=== PATIENT | male | born 1995 | race Caucasian/White ===

== ENCOUNTER 2023-06-10 16:19 | Outpatient (CLI) | payer MEDICAID, SELFPAY ==
[2023-06-10 10:58] LABS: Abs Immature Grans 0.02 10^3/uL (0.0-0.06); Absolute Basophil Count 0.04 10^3/uL (0.0-0.2); Absolute Lymphocyte Count 1.77 10^3/uL (1.2-3.4); Absolute Monocyte Count 0.49 10^3/uL (0.1-0.8); Absolute Neutrophil Count 3.37 10^3/uL (1.2-6.7); Basophils % 0.6; Eosinophils % 8.1; HCT 44.5 % (40.0-50.0); HGB 15.6 g/dL (13.5-17.5); Immature Grans % 0.3; Lymphocytes % 28.6; MCH 31.4 pg (27.0-33.0); MCHC 35.1 % (32.0-36.0); MCV 90 fL (80-95); MPV 9.3 fL (8.0-11.0); Monocytes % 7.9; Neutrophils % 54.5; Platelet Count 211 10^3/uL (130-400); RBC 4.97 10^6/uL (4.36-5.78); RDW 11.7 % (11.8-14.1); RDW-SD 37.9 fL; WBC 6.19 10^3/uL (4.4-10.8)
[2023-06-10 11:12] LABS: Hemoglobin A1C 5.1 % (<5.7)
[2023-06-10 11:51] LABS: ALT 21 U/L (16-63); AST 16 U/L (15-37); Albumin 4.1 g/dL (3.4-5.0); Alkaline Phosphatase 113 U/L (46-116); Anion Gap 6.4 mmol/L (3-11); BUN 11 mg/dL (7-18); Bilirubin, Total 0.4 mg/dL (0.2-1.0); CO2 30.6 mmol/L (21.0-32.0); CREATININE 0.9 mg/dL (0.70-1.30); Calculated LDL 114 mg/dL (<100); Chloride 101 mmol/L (98-107); Cholesterol 179 mg/dL (<200); Estimated GFR 118.57 (mL/min/1.73m2); Glucose 100 mg/dL (74-106); HDL Cholesterol 54 mg/dL (40-60); Sodium 138 mmol/L (136-145); TSH 1.17 uIU/mL (0.36-3.74); Total Protein 8.2 g/dL (6.4-8.2); Triglyceride 55 mg/dL (<150)
[2023-06-10 11:53] LABS: *AMPHETAMINES SCREEN URINE Negative (Negative); *BARBITURATES SCREEN URINE Negative (Negative); *BENZODIAZEPINES SCREEN URINE Negative (Negative); Cannabinoids THC Negative (Negative); Cocaine Screen,Urine Negative (Negative); METHADONE URINE SCREEN Negative (Negative); OPIATES URINE SCREEN Negative (Negative)
[2023-06-10 11:56] LABS: Tricyclic Antidepressants Negative (Negative)
[2023-06-11 10:53] LABS: HIV-1/2 Ag & Ab Screen Negative (Negative)
[2023-06-11 13:20] LABS: Chlamydia Result Negative (Negative); GC Result Negative (Negative)
[2023-06-11 13:41] LABS: HCV RNA Qualitative Undetected (Undetected)
[2023-06-11 17:36] LABS: HBs Antibody, Quant 38.9 mIU/mL (See Note); Hepatitis B Surface Ab Positive (See Note)
[2023-06-11 17:46] LABS: Hepatitis B Surface Ag Negative (Negative)
[2023-06-11 18:25] LABS: Hep B Core Antibody Negative (Negative)
[2023-06-11 18:45] LABS: Hep A Total Ab w Rflx IgM Negative (Negative)
[2023-06-12 12:24] LABS: TB Interpretation Negative (Negative); TB1 Ag minus Nil 0.01 IU/ml
[2023-06-12 19:03] LABS: Syphilis IgG w/Reflex Nonreactive (Nonreactive)
[2023-06-13 14:45] LABS: Fentanyl Interpretation Negative.; Fentanyl by LC-MS/MS Not Detected; Norfentanyl by LC-MS/MS Not Detected
[2023-06-14 14:55] LABS: Buprenorphine 97.6 ng/mL (Cutoff: 5.0); Norbuprenorphine 1947.8 ng/mL (Cutoff: 2.5)
== END 2023-06-10 16:20 | disposition home or self-care (01) ==
LOC: LBO 16:20
PROVIDERS: Visit Provider Advanced Practice Midwife
DX: F11.20 Opioid dependence, uncomplicated (principal); Z72.89 Other problems related to lifestyle; Z11.4 Encounter for screening for human immunodeficiency virus [HIV]; Z11.59 Encounter for screening for other viral diseases
CPT/HCPCS: 36415; 80053; 80061; 80307; 80348; 86704; 86706; 86709; 87340; 87389; 87491; 87522; 87591; 80354; 83036; 84443; 85025; 86480; 86780

== ENCOUNTER 2023-06-23 16:11 | Emergency (ER) | payer MEDICAID, SELFPAY ==
[2023-06-23 16:15] VITALS: BP 137/76; PULSE 81; RESP 16; TEMP 37.4; O2SAT 96
--- NOTE | 2023-06-23 17:21 | W.ED.GENAD ---
Discharge Plan Disposition Patient Disposition: Home Condition: Stable Discharge Details Clinical Impression: Constipation Primary Care Provider: Unknown,Unknown ED Provider: Stephani Aguilar Home Meds and New Rx's Prescriptions: No Action metronidazole 500 mg tablet 500 mg PO BID Qty: 14 0RF Discharge Instructions Instructions: Constipation (ED) Additional Instructions: Drink at least 6 to 8 glasses of water daily to stay well-hydrated this will help with constipation Use [id number] stool softeners and laxatives as directed would recommend Colace 100 mg twice daily and MiraLAX 17 g daily to keep bowels regular. Can add milk of mag or Dulcolax if needed Referrals: Unknown,Unknown [Primary Care Provider] - (Follow-up with primary care provider return sooner for new or worsening symptoms) Medical Decision Making 27-year-old gentleman on chronic Suboxone presents with abdominal pain last bowel movement over a week ago. He has been eating and drinking denies nausea fever. His labs including CBC CMP and lactate are within normal limits. His abdominal exam is benign. Vital signs are stable. Most likely constipation will administer Relistor 12 mg subcu and discharged to home with bowel regimen recommendations return sooner for new or worsening symptoms Medical Records Medical records reviewed: Yes I reviewed the patient's medical records. Lab Data Lab results reviewed: Yes I reviewed the patient's lab results. Lab results narrative: Laboratory Results - last 24 hr 06/23/23 17:40 WBC 9.62 RBC 5.01 Hgb 15.6 Hct 45.2 MCV 90 MCH 31.1 MCHC 34.5 RDW 12.1 Plt Count 212 MPV 9.8 Immature Gran % 0.3 Neutrophils % 63.8 Lymphocytes % 21.3 Monocytes % 10.4 Eosinophils % 4.0 Basophils % 0.2 Nucleated RBC % 0.0 Absolute Neutrophils 6.14 Absolute Lymphocytes 2.05 Absolute Monocytes 1.00 H Absolute Eosinophils 0.38 Absolute Basophils 0.02 VBG Lactate 0.7 Sodium 140 Potassium 4.0 Chloride 101 Carbon Dioxide 29.8 Anion Gap 9.2 BUN 11 Creatinine 0.9 Est GFR (CKD-EPI 2020) 118.57 Glucose 111 H Calcium 9.6 Magnesium 2.1 Total Bilirubin 0.5 AST 13 L ALT 20 Alkaline Phosphatase 111 Total Protein 8.3 H Albumin 4.2 Lipase 25 HPI General Mode of arrival: ambulatory. Date/Time Provider Initiated Documentation: 06/23/23 16:22. Limitations to Documentation: no limitations. Information obtained by: patient. HPI Narrative: Reports intermittent abdominal pain that he says is generalized and sometimes upper abdomen sometimes lower now is pointing to the right. He has been eating and drinking he states he has not had a bowel movement in over a week which is normal for him he has had no fevers. States that constipation is typical for him with Related Data Home Medications Medication Instructions Recorded Confirmed metronidazole 500 mg tablet 500 mg PO BID #14 tabs 09/25/21 06/23/23 Previous Rx's Medication Instructions Recorded metronidazole 500 mg tablet 500 mg PO BID #14 tabs 09/25/21 Allergies Allergy/AdvReac Type Severity Reaction Status Date / Time No Known Allergies Allergy Unverified 06/23/23 16:17 General Stated Complaint: Abd Prob SIMA: 3 Review of Systems All systems reviewed & are unremarkable except as noted in HPI and below PFSH All Active Problems (Updated 06/23/23 @ 18:55 by Stephani Aguilar NP) Constipation (Acute) Family History (Updated 05/14/23 @ 11:14 by Queta Enrique) Mother Alcohol use disorder Social History (Updated 05/14/23 @ 11:13 by Queta Enrique) Smoking/Tobacco Use Status: Current every day Tobacco Type: e-cigarettes Second Hand Exposure: No Smoking risk assessment performed?: Yes Alcohol Intake: current Alcohol Intake frequency: holidays/special occasions only Drug use: Current Sobriety Caregiver/Support person: No Foster care: Yes Housing: house Number of Children: 0 number of grandchildren: 0 Communication Needs: None Do you need help understanding health information?: Never Sexually active: Yes Do you think of yourself as: straight/heterosexual Current gender identity: male What is your relationship status?: never How often do you talk on the phone with friends or family?: never Do you belong to any clubs or organized social groups?: no Panel score (0-1 are the most socially isolated patients): 0 Duration: > 90 minutes/day Frequency: daily Seatbelt use: never Helmet use: No Drive intox or ride w/intox dedicated local truck driver: No Do you feel safe at home: Yes Do you feel safe in your relationship?: Yes Exam Narrative Exam Narrative: Well-appearing gentleman of stated age in no acute distress head is atraumatic oral mucosas moist cardiovascular regular rate and rhythm respirations even and unlabored his abdomen is slightly distended soft reporting tenderness on the right there is no guarding no masses, benign abdominal exam, his extremities without edema moves all extremities. Normal mood and affect neuro awake alert oriented Course Vital Signs Vital signs: Vital Signs Temperature 37.4 C 06/23/23 16:15 Pulse 81 06/23/23 16:15 Respiratory Rate 16 06/23/23 16:15 Blood Pressure 137/76 06/23/23 16:15 Pulse Oximetry 96 06/23/23 16:15 Temperature 37.4 C 06/23/23 16:15 Temperature Source Temporal Artery Scan 06/23/23 16:15 Pulse 81 06/23/23 16:15 Respiratory Rate 16 06/23/23 16:15 Blood Pressure 137/76 06/23/23 16:15 Blood Pressure Position Sitting 06/23/23 16:15 Pulse Oximetry 96 06/23/23 16:15 Oxygen Delivery Method Room Air 06/23/23 16:15 Oxygen Flow Rate 0 06/23/23 16:15 PAWSS Have you Been Recently Intoxicated or Drunk Within the Last 30 days?: No Have you Ever Experienced Previous Episodes of Alcohol Withdrawal?: No Have you ever Experienced Withdrawal Seizures?: No Have you ever Experienced Delirium Tremens(DT)s?: No Have you ever undergone Alcohol Rehabilitation Treatment (i.e, inpt ot outpatient treatment programs)?: No Have you ever Experienced Blackouts?: No Have you ever Combined Alcohol with other Downers within the last 90 days?: No Have you ever Combined Alcohol with any other Substance of Abuse during the last 90 days?: No Positive Blood Alcohol level on Presentation? [PCS.BAL]: No Evidence of Increased Autonomic Activity (i.e. HR>120, tremor, sweating, agitation, nausea)?: No Result: 0
[2023-06-23] MEDS: Lactated Ringers 1,000 ML 1000 ML IV (17:39)
[2023-06-23 17:45] LABS: Lactate 0.7 mmol/L (0.6-1.4)
[2023-06-23 17:46] LABS: Abs Immature Grans 0.03 10^3/uL (0.0-0.06); Absolute Basophil Count 0.02 10^3/uL (0.0-0.2); Absolute Eosinophil Count 0.38 10^3/uL (0.0-0.7); Absolute Lymphocyte Count 2.05 10^3/uL (1.2-3.4); Absolute Neutrophil Count 6.14 10^3/uL (1.2-6.7); Basophils % 0.2; HCT 45.2 % (40.0-50.0); HGB 15.6 g/dL (13.5-17.5); Immature Grans % 0.3; Lymphocytes % 21.3; MCH 31.1 pg (27.0-33.0); MCHC 34.5 % (32.0-36.0); MCV 90 fL (80-95); MPV 9.8 fL (8.0-11.0); Monocytes % 10.4; Neutrophils % 63.8; Platelet Count 212 10^3/uL (130-400); RBC 5.01 10^6/uL (4.36-5.78); RDW 12.1 % (11.8-14.1); RDW-SD 40.2 fL; WBC 9.62 10^3/uL (4.4-10.8)
[2023-06-23 18:01] LABS: Lipase 25 U/L (16-77)
[2023-06-23 18:04] LABS: ALT 20 U/L (16-63); AST 13 U/L (15-37); Albumin 4.2 g/dL (3.4-5.0); Alkaline Phosphatase 111 U/L (46-116); Anion Gap 9.2 mmol/L (3-11); BUN 11 mg/dL (7-18); Bilirubin, Total 0.5 mg/dL (0.2-1.0); CO2 29.8 mmol/L (21.0-32.0); CREATININE 0.9 mg/dL (0.70-1.30); Calcium 9.6 mg/dL (8.5-10.1); Chloride 101 mmol/L (98-107); Estimated GFR 118.57 (mL/min/1.73m2); Glucose 111 mg/dL (74-106); Magnesium 2.1 mg/dL (1.8-2.4); Sodium 140 mmol/L (136-145); Total Protein 8.3 g/dL (6.4-8.2)
[2023-06-23] MEDS: Methylnaltrexone 12 MG/0.6 ML VIAL SC (19:20)
[2023-06-23 19:21] VITALS: BP 119/65; PULSE 76; RESP 14; O2SAT 98
== END 2023-06-23 19:21 | disposition home or self-care (01) ==
PROVIDERS: Emergency Provider Nurse Practitioner Acute Care
DX: R10.84 Generalized abdominal pain (principal); R50.9 Fever, unspecified; R11.0 Nausea; K59.00 Constipation, unspecified; Z72.0 Tobacco use; F11.20 Opioid dependence, uncomplicated
CPT/HCPCS: 80053; 83690; 96360; 96372; 99284; 83605; 83735; 85025

== ENCOUNTER 2023-09-27 09:35 | Emergency (ER) | payer MEDICAID, SELFPAY ==
[2023-09-27 09:39] VITALS: BP 134/78; PULSE 97; RESP 16; TEMP 37.7; O2SAT 97
--- NOTE | 2023-09-27 09:45 | DI.RAD_ITS ---
Exam(s) XR CHEST 2V PA LATERAL EXAM: XR CHEST 2V PA LATERAL CLINICAL HISTORY: cough x10 days, wheeze RLL TECHNIQUE: 2D digital imaging was performed. Two views. COMPARISON: No exams were available for comparison FINDINGS: HEART: Normal size. Aorta: Not dilated. PULMONARY VASCULATURE: Normal. LUNGS: Patchy right upper lobe infiltrate. Remainder of the lungs appear clear. PLEURAL SPACE: No pleural effusion or pneumothorax. BONE:Unremarkable for age. Soft tissues: Unremarkable. IMPRESSION: Right upper lobe pneumonia. DATA REPOSITORY: RADIATION DOSE DELIVERED:
--- NOTE | 2023-09-27 09:47 | W.ED.GENAD ---
Discharge Plan Disposition Patient Disposition: Home Condition: Stable Discharge Details Clinical Impression: Pneumonia Primary Care Provider: Unknown,Unknown ED Provider: Yeison Argueta Home Meds and New Rx's Prescriptions: New amoxicillin-pot clavulanate 875-125 mg tablet 1 tab PO BID 5 Days Qty: 10 0RF azithromycin 250 mg tablet See Rx Instructions .ROUTE .COMPLEX Qty: 6 0RF Rx Instructions: For 250 mg dose pack: take 500 mg today (day 1), then 250 mg for 4 days (days 2-5) No Action buprenorphine-naloxone [Suboxone] 8-2 mg film 2 film sublingual QDAY Rx Instructions: place 1 strip/tab under (each) side of tongue Discharge Instructions Instructions: Amoxicillin/Clavulanate Potassium (By mouth), Azithromycin (By mouth), Pneumonia (ED) Additional Instructions: You were seen in the emergency department for your cough with sore throat. Your rapid strep swab is negative. Your x-ray shows you have a little pneumonia in your right lung. I have sent 2 antibiotics to [facility] in [place] take both of these as directed. Please use therapeutic dosing of Tylenol (acetamenophen) & Advil (ibuprofen) in an alternating fashion as follows: Take 1000mg of Tylenol every 6 hours without missing doses- that is 4 times per day. [place] in between the Tylenol dosings, take 400-600mg of Advil also on a 6 hour schedule, that is also 4 times per day. The daily maximum dosing of Tylenol is 4000mg, and the daily maximum dosing of Advil is 2400mg. This is safe to do for weeks. Please note that some common cold medications & prescription pain medications may contain acetamenophen and you need to read OTC drug labels and factor that in to maximum daily dosings. Take [id number] cold medicines as well like Mucinex. Please return to the emergency department for any severe increase in shortness of breath or respiratory distress, intractable nausea or vomiting. HPI General Date/Time Provider Initiated Documentation: 09/27/23 09:43. HPI Narrative: 27 year-old male presents to ED today by POV/ambulating with a chief complaint of sore throat, cough, headache with onset 10 days ago. Quality described as lung irritation, just feels fatigued, headache with dysphagia and sore throat, no radiation to severe chest pain, respiratory distress, nausea/vomiting, abdominal pain. Severity is described as moderate to severe. Palliating factors include Tylenol and Advil without much relief. Provoking factors include nothing specific. Patient not anticoagulated. Related Data Home Medications Medication Instructions Recorded Confirmed amoxicillin 875 mg-potassium 1 tab PO BID pneumonia 5 days #10 09/27/23 clavulanate 125 mg tablet tabs azithromycin 250 mg tablet See Rx Instructions PO .COMPLEX 09/27/23 pneumonia #6 tabs buprenorphine 8 mg-naloxone 2 mg 2 film sublingual QDAY 09/27/23 09/27/23 sublingual film (Suboxone) Previous Rx's Medication Instructions Recorded amoxicillin 875 mg-potassium 1 tab PO BID pneumonia 5 days #10 09/27/23 clavulanate 125 mg tablet tabs azithromycin 250 mg tablet See Rx Instructions PO .COMPLEX 09/27/23 pneumonia #6 tabs Allergies Allergy/AdvReac Type Severity Reaction Status Date / Time No Known Allergies Allergy Unverified 09/27/23 09:42 General Stated Complaint: Sorethroat SIMA: 4 Review of Systems All systems reviewed & are unremarkable except as noted in HPI and below Exam Narrative Exam Narrative: GENERAL APPEARANCE: Well-nourished, non-toxic, awake and alert, atraumatic, no acute distress. SKIN: Warm, pink, dry, intact, without rashes/lesions/ulcerations. HEAD: Normocephalic, atraumatic, normal hair distribution for gender/age. EYES: Pupils PERRLA, EOMs intact without nystagmus, normal conjunctiva, no exudates on lids/lashes. ENT: Nares patent, no circumoral cyanosis, no facial swelling, erythematous posterior oropharynx, no exudate NECK: Supple, trachea midline, painless cervical ROM. LUNGS/CHEST: Lungs CTA bilaterally- rhonchi in R lung diffusely, left benign, non-labored respirations, normal A/P diameter, symmetrical expansion, no chest wall deformity HEART (CV/PV): Regular rate and rhythm without murmur, no peripheral edema, no JVD. ABDOMEN: Soft, non-distended, no guarding, no tenderness. MSK: Normal ROM, no swelling/deformity to bilateral UEs or LEs, moving all extremities without weakness, no cyanosis, spine midline without tenderness, normal curvature. NEURO: Mental Status AAOx4 - alert to person, place, time, events No facial droop, no forehead involvement. Motor: No focal weakness - strength 5/5 in bilateral UEs and LEs, proximal and distal, symmetric. Sensory: sensation intact to light touch globally. Gait normal: patient ambulated without ataxia into ED room. PSYCH: euthymic, cooperative, pleasant, appropriate speech Course Vital Signs Vital signs: Vital Signs Temperature 37.7 C H 09/27/23 09:39 Pulse 97 H 09/27/23 09:39 Respiratory Rate 16 09/27/23 09:39 Blood Pressure 134/78 09/27/23 09:39 Pulse Oximetry 97 09/27/23 09:39 Temperature 37.7 C H 09/27/23 09:39 Temperature Source Skin 09/27/23 09:39 Pulse 97 H 09/27/23 09:39 Respiratory Rate 16 09/27/23 09:39 Blood Pressure 134/78 09/27/23 09:39 Blood Pressure Position Sitting 09/27/23 09:39 Pulse Oximetry 97 09/27/23 09:39 Oxygen Delivery Method Room Air 09/27/23 09:39 Oxygen Flow Rate 0 09/27/23 09:39 Pain Level 8 09/27/23 09:39 Medical Decision Making This dictation utilizes [id number] dictation software and may contain unedited grammatical errors. 27 y/o M presents to ED today with a chief complaint of cough, sore throat, headache for the past 10 days. Patient denies respiratory distress, does endorse low-grade fever, denies abdominal pain/nausea/vomiting. Patient has remote history of asthma. Patients' medical history: resolved asthma in the past. Family and social history: noncontributory. Pertinent exam findings / vital signs include rhonchi R lung, no hypoxia, benign abdomen, low-grade fever. Differential / pathologies of concern include Pneumonia, URI, Viral Syndrome, Strep Pharyngitis. Diagnostic studies of: -CXR, Covid/Flu/RSV PCR, Rapid Strep. -Rapid strep neg -Covid/Flu/RSV neg -CXR shows R multifocal PNA Interventions of: -Dual ABX Regimen for CAP, DuoNeb. ED Course/Assessment/Plan: 27-year-old male presents with 10-day onset of respiratory infection, significant cough and headache. His x-ray shows a right multifocal pneumonia and I did treat with Augmentin and azithromycin, patient did receive a DuoNeb here in the emergency department, counseled on therapeutic Tylenol and ibuprofen and strict return criteria for increasing respiratory distress. Findings not consistent with hypoxic respiratory failure, sepsis, covid/flu/rsv, strep. Disposition of Pneumonia. Patient verbalized understanding of the plan and return to ED criteria and engaged in shared decision making. Medical Records Medical records reviewed: Yes I reviewed the patient's medical records. Imaging Data Radiologic Study: Attestation: I personally reviewed and interpreted this imaging study as follows: Imaging: X-Ray Radiologist's impression: Exam: XR Chest Exam date and time: 09/27/2023 10:17 AM Age: 27 years old Clinical indication: Other: Cough x10 days, wheeze rll TECHNIQUE: Imaging protocol: Radiologic exam of the chest. Views: 2 views. COMPARISON: No relevant prior studies available. FINDINGS: Lungs: Opacities In the right upper lobe may represent multifocal pneumonia.. Pleural spaces: Unremarkable. No pleural effusion. No pneumothorax. Heart/Mediastinum: Unremarkable. No cardiomegaly. Bones/joints: Unremarkable. IMPRESSION: Opacities In the right upper lobe may represent multifocal pneumonia.. Dictated and Authenticated by: Yoel Grider MD. Ordering:SHELLEY Latham MD Lab Data Lab results reviewed: Yes I reviewed the patient's lab results. Lab results narrative: Rapid Strep negative -POC Labs: 09/27/23 10:00 Tonsil - Not Specified Group A Streptococcus Culture - Pending Laboratory Tests Range/Units 09/27/23 10:00 COVID-19 Source Nasopharynx SARS-CoV-2 (PCR) (Negative) Negative Influenza Type A (PCR) (Negative) Negative Influenza Type B (PCR) (Negative) Negative RSV (PCR) (Negative) Negative Quality:SDOH Health Related Social Needs: No Data to Display PFSH All Active Problems (Updated 09/27/23 @ 10:30 by TAYLOR Romero) Pneumonia (Acute) Family History (Updated 05/14/23 @ 11:14 by Queta Enrique) Mother Alcohol use disorder Social History (Updated 05/14/23 @ 11:13 by Queta Enrique) Smoking/Tobacco Use Status: Current every day Tobacco Type: e-cigarettes Second Hand Exposure: No Smoking risk assessment performed?: Yes Alcohol Intake: current Alcohol Intake frequency: holidays/special occasions only Drug use: Current Sobriety Substance use type: does not use Caregiver/Support person: No Foster care: Yes Housing: house Number of Children: 0 number of grandchildren: 0 Communication Needs: None Do you need help understanding health information?: Never Sexually active: Yes Do you think of yourself as: straight/heterosexual Current gender identity: male What is your relationship status?: never How often do you talk on the phone with friends or family?: never Do you belong to any clubs or organized social groups?: no Panel score (0-1 are the most socially isolated patients): 0 Duration: > 90 minutes/day Frequency: daily Seatbelt use: never Helmet use: No Drive intox or ride w/intox star route mail driver: No Do you feel safe at home: Yes Do you feel safe in your relationship?: Yes
[2023-09-27 10:06] VITALS: RESP 3; RESP 5; O2SAT 95
[2023-09-27] MEDS: Albuterol/Ipratropium 3 ML UPD VIAL UPD (10:06)
--- NOTE | 2023-09-27 10:28 | DI.VRAD_ITS ---
PROCEDURE INFORMATION: Exam: XR Chest Exam date and time: 09/27/2023 10:17 AM Age: 27 years old Clinical indication: Other: Cough x10 days, wheeze rll TECHNIQUE: Imaging protocol: Radiologic exam of the chest. Views: 2 views. COMPARISON: No relevant prior studies available. FINDINGS: Lungs: Opacities In the right upper lobe may represent multifocal pneumonia.. Pleural spaces: Unremarkable. No pleural effusion. No pneumothorax. Heart/Mediastinum: Unremarkable. No cardiomegaly. Bones/joints: Unremarkable. IMPRESSION: Opacities In the right upper lobe may represent multifocal pneumonia.. Dictated and Authenticated by: Yoel Grider MD. Ordering:SHELLEY Latham MD
[2023-09-27 10:44] LABS: COVID-19 PCR Negative (Negative); Influenza A PCR Negative (Negative); Influenza B PCR Negative (Negative); RSV PCR Negative (Negative)
[2023-09-27 10:46] VITALS: BP 126/84; PULSE 125; RESP 16; O2SAT 96
[2023-09-27 10:47] LABS: Source Nasopharynx
== END 2023-09-27 10:49 | disposition home or self-care (01) ==
PROVIDERS: Emergency Provider Physician Assistant
DX: R05.1 Acute cough (principal); R07.0 Pain in throat; R51.9 Headache, unspecified
CPT/HCPCS: 87637; 87880; 94640; 99283; 71046; 87081; J7620

== ENCOUNTER 2023-10-29 15:08 | Emergency (ER) | payer MEDICAID, SELFPAY ==
[2023-10-29 15:09] VITALS: BP 136/82; PULSE 90; RESP 20; TEMP 38.1; O2SAT 98
[2023-10-29] MEDS: Acetaminophen 325 MG TAB 650 MG PO (15:39)
[2023-10-29] MEDS: Clindamycin 150 MG CAP 450 MG PO (15:39)
[2023-10-29] MEDS: Ketorolac 15 MG/ML VIAL IM (15:40)
--- NOTE | 2023-10-29 15:40 | ED.GENADUL_ITS ---
Discharge Plan Disposition Patient Disposition: Home Condition: Stable Discharge Details Clinical Impression: Cellulitis of groin, left Primary Care Provider: Unknown,Unknown ED Provider: Aman Simon Home Meds and New Rx's Prescriptions: New clindamycin HCl 300 mg capsule 300 mg PO QID 7 Days Qty: 28 0RF No Action buprenorphine-naloxone [Suboxone] 8-2 mg film 2 film sublingual QDAY Rx Instructions: place 1 strip/tab under (each) side of tongue Discharge Instructions Instructions: Cellulitis (ED) Additional Instructions: Please return to the emergency department for any worsening symptoms. Stand Alone Forms: Work Release HPI General Date/Time Provider Initiated Documentation: 10/29/23 15:16 . HPI Narrative: 27-year-old male presents with 2 days of left groin discomfort raised red warm area with a central head that expressed spontaneously yesterday; denies history of diabetes, denies penile discharge denies testicular pain, denies recent sexual partners. Related Data Home Medications Medication Instructions Recorded Confirmed buprenorphine 8 mg-naloxone 2 mg 2 film sublingual QDAY 09/27/23 10/29/23 sublingual film (Suboxone) clindamycin HCl 300 mg capsule 300 mg PO QID 7 days #28 caps 10/29/23 Previous Rx's Medication Instructions Recorded clindamycin HCl 300 mg capsule 300 mg PO QID 7 days #28 caps 10/29/23 Allergies Allergy/AdvReac Type Severity Reaction Status Date / Time No Known Allergies Allergy Unverified 10/29/23 15:13 General Stated Complaint: Cellulitis SIMA: 3 Review of Systems Narrative: Review of Systems Constitutional: negative Eyes: negative ENT: negative Cardiovascular: negative Respiratory: negative Gastrointestinal: negative : Groin discomfort Musculoskeletal: negative Skin: negative Neurologic: negative Psych: negative Exam Narrative Exam Narrative: Physical Examination General: alert, awake, cooperative, resting comfortably, no acute distress HEENT: normocephalic, atraumatic Neck: supple, trachea midline; full ROM Chest: normal to inspection Respiratory: normal respiratory effort, speaking in full sentences GI: abdomen soft, non-tender, non-distended; no palpable mass or hepatosplenomegaly : Normal external genitalia, no penile discharge, normal testicular exam no palpable mass or tenderness; patient does have 4 cm x 2 cm indurated erythematous area of skin with central area of prior expressed purulent material Skin: See Neuro: AAOx3, normal speech, moving all extremities Psych: Appropriate mood and affect Course Vital Signs Vital signs: Vital Signs Temperature 38.1 C H 10/29/23 15:09 Pulse 90 10/29/23 15:09 Respiratory Rate 20 10/29/23 15:09 Blood Pressure 136/82 10/29/23 15:09 Pulse Oximetry 98 10/29/23 15:09 Temperature 38.1 C H 10/29/23 15:09 Temperature Source Skin 10/29/23 15:09 Pulse 90 10/29/23 15:09 Respiratory Rate 20 10/29/23 15:09 Respiratory Effort Normal, Non-Labored 10/29/23 15:14 Blood Pressure 136/82 10/29/23 15:09 Blood Pressure Position Sitting 10/29/23 15:09 Pulse Oximetry 98 10/29/23 15:09 Oxygen Delivery Method Room Air 10/29/23 15:09 Oxygen Flow Rate 0 10/29/23 15:09 Pain Level 10 10/29/23 15:32 Medical Decision Making 27-year-old male presents with 2 days of left groin discomfort raised red warm area with a central head that expressed spontaneously yesterday; denies history of diabetes, denies penile discharge denies testicular pain, denies recent sexual partners. Low-grade fever on presentation, normotensive nontachycardic nontoxic, bedside ultrasound showing localized induration/cobblestoning without discrete and sizable pocket of purulence consider early phlegmonous collection less than 1 cm x 1 cm. No crepitus no bulla no vesicles no extension into perineum to suggest Rin's gangrene. Likely localized cellulitis related to folliculitis, from history patient self expressed purulent material within the last 2 days. Will initiate clindamycin oral antibiotic. Given strict return precautions for any worsening symptoms. Quality:SDOH Health Related Social Needs: 2 No Data to Display PFSH All Active Problems (Updated 10/29/23 @ 15:44 by Aman Simon MD) Cellulitis of groin, left (Acute) Family History (Updated 05/14/23 @ 11:14 by Queta Enrique) Mother Alcohol use disorder Social History (Updated 05/14/23 @ 11:13 by Queta Enrique) Smoking/Tobacco Use Status: Current every day Tobacco Type: e-cigarettes Second Hand Exposure: No Smoking risk assessment performed?: Yes Alcohol Intake: current Alcohol Intake frequency: holidays/special occasions only Drug use: Current Sobriety Substance use type: does not use Caregiver/Support person: No Foster care: Yes Housing: house Number of Children: 0 number of grandchildren: 0 Communication Needs: None Do you need help understanding health information?: Never Sexually active: Yes Do you think of yourself as: straight/heterosexual Current gender identity: male What is your relationship status?: never How often do you talk on the phone with friends or family?: never Do you belong to any clubs or organized social groups?: no Panel score (0-1 are the most socially isolated patients): 0 Duration: > 90 minutes/day Frequency: daily Seatbelt use: never Helmet use: No Drive intox or ride w/intox pack train driver: No Do you feel safe at home: Yes Do you feel safe in your relationship?: Yes
== END 2023-10-29 15:54 | disposition home or self-care (01) ==
PROVIDERS: Emergency Provider Emergency Medicine
DX: L03.314 Cellulitis of groin (principal); L02.214 Cutaneous abscess of groin
CPT/HCPCS: 96372; 99283; J1885

== ENCOUNTER 2024-03-07 09:12 | Emergency (ER) | payer MEDICAID, SELFPAY ==
[2024-03-07 09:40] VITALS: BP 111/72; PULSE 58; RESP 14; TEMP 37; O2SAT 98
--- NOTE | 2024-03-07 10:03 | W.ED.GENAD ---
Discharge Plan Disposition Patient Disposition: Home Condition: Stable Discharge Details Clinical Impression: Pain, dental Primary Care Provider: Unknown,Unknown ED Provider: Ronak Sullivan Home Meds and New Rx's Prescriptions: New amoxicillin-pot clavulanate 875-125 mg tablet 1 tab PO BID Qty: 14 0RF Continued buprenorphine-naloxone [Suboxone] 8-2 mg film 3 film sublingual QDAY Rx Instructions: place 1 strip/tab under (each) side of tongue Discharge Instructions Additional Instructions: Follow-up with a dentist within 1 to 2 weeks especially if not improving You can take 40 mg of ibuprofen every 4 hours and 600 mg of acetaminophen every 6 hours as needed If you feel more ill or have inability to swallow liquids or high fevers return to the emergency department for reevaluation HPI General Mode of arrival: ambulatory. Date/Time Provider Initiated Documentation: 03/07/24 09:14. Limitations to Documentation: no limitations. Information obtained by: patient. History of Present Illness 28 year old M presents to the emergency department with the chief complaint of left upper dental pain, described as moderate, Quality is described as aching, Patient started experiencing this week(s) (1) and it has been constant. No relieving factors improve symptom(s), No exacerbating factors reported . Patient notes no other symptoms.; denies fever/chills. Patient did receive the following treatments prior to arrival, none Related Data Home Medications ?Medication ?Instructions ?Recorded ?Confirmed buprenorphine 8 mg-naloxone 2 mg 3 film sublingual QDAY 09/27/23 03/07/24 sublingual film (Suboxone) amoxicillin 875 mg-potassium 1 tab PO BID #14 tabs 03/07/24 clavulanate 125 mg tablet Previous Rx's ?Medication ?Instructions ?Recorded amoxicillin 875 mg-potassium 1 tab PO BID #14 tabs 03/07/24 clavulanate 125 mg tablet Allergies Allergy/AdvReac Type Severity Reaction Status Date / Time No Known Allergies Allergy Unverified 03/07/24 09:45 General Stated Complaint: DentalOral SIMA: 4 Review of Systems All systems reviewed & are unremarkable except as noted in HPI and below Constitutional Constitutional: Denies chills, Denies fever(s) and Denies weakness ENT Ears, Nose, Mouth, and Throat: Reports dental pain Cardiovascular Cardiovascular: Denies chest pain and Denies dyspnea Respiratory Respiratory: Denies dyspnea Gastrointestinal Gastrointestinal: Denies abdominal pain and Denies vomiting Integumentary/Breasts Skin/Breast: Denies rash Neurologic Neurologic: Denies weakness Psychiatric Psychiatric: Denies depression Exam Const General: no acute distress Orientation: alert HENMT Head: normal to inspection Ears: external ears normal General nose exam: external nose normal Mouth: moist mucous membranes Eyes General: appearance normal, both eyes and all related structures Neck Neck: normal visual inspection Resp Effort & Inspection: normal respiratory effort and able to speak in complete sentences Cardio Rate: regular rate Skin General skin exam: no rashes or lesions noted Neuro General: patient alert and patient oriented x3 Extrem General: normal to inspection Psych Mental Status: mental status grossly normal Course Vital Signs Vital signs: Vital Signs Temperature 37 C 03/07/24 09:40 Pulse 58 L 03/07/24 09:40 Respiratory Rate 14 03/07/24 09:40 Blood Pressure 111/72 03/07/24 09:40 Pulse Oximetry 98 03/07/24 09:40 Temperature 37 C 03/07/24 09:40 Temperature Source Skin 03/07/24 09:40 Pulse 58 L 03/07/24 09:40 Respiratory Rate 14 03/07/24 09:40 Blood Pressure 111/72 03/07/24 09:40 Blood Pressure Position Sitting 03/07/24 09:40 Pulse Oximetry 98 03/07/24 09:40 Pain Level 7 03/07/24 09:40 Medical Decision Making 28-year-old male with a history of prior substance use and dental caries comes in with left upper anterior molar pain and swelling. Denies any fevers or chills, no difficulty breathing or swallowing. He is alert and oriented times and arrival has mild swelling of the gums superior to the left anterior upper molar that is eroded. No fluctuance or visible area that I can drain. No pain in the eyes or significant swelling of the face otherwise. I suspect dental infection, will start him on Augmentin and he will follow-up with a dentist and return precautions given. No findings currently of entities such as Ludwigs Differential Diagnosis Differential Diagnosis: Pulpitis, abscess Quality:SDOH Health Related Social Needs: No Data to Display PFSH All Active Problems (Updated 03/07/24 @ 10:03 by Ronak Sullivan MD) Pain, dental (Acute) Family History (Updated 05/14/23 @ 11:14 by Queta Enrique) Mother Alcohol use disorder Social History (Updated 05/14/23 @ 11:13 by Queta Enrique) Smoking/Tobacco Use Status: Current every day Tobacco Type: e-cigarettes Second Hand Exposure: No Smoking risk assessment performed?: Yes Alcohol Intake: current Alcohol Intake frequency: holidays/special occasions only Drug use: Current Sobriety Substance use type: does not use Caregiver/Support person: No Foster care: Yes Housing: house Number of Children: 0 number of grandchildren: 0 Communication Needs: None Do you need help understanding health information?: Never Sexually active: Yes Do you think of yourself as: straight/heterosexual Current gender identity: male What is your relationship status?: never How often do you talk on the phone with friends or family?: never Do you belong to any clubs or organized social groups?: no Panel score (0-1 are the most socially isolated patients): 0 Duration: > 90 minutes/day Frequency: daily Seatbelt use: never Helmet use: No Drive intox or ride w/intox superintendent drivers: No Do you feel safe at home: Yes Do you feel safe in your relationship?: Yes
[2024-03-07 10:12] VITALS: BP 114/70; PULSE 60; RESP 14; RESP 16; TEMP 37; O2SAT 98
[2024-03-07] MEDS: Amoxicillin 875/Clav. 125 TAB PO (10:15)
== END 2024-03-07 10:15 | disposition home or self-care (01) ==
PROVIDERS: Emergency Provider Emergency Medicine
DX: R68.84 Jaw pain (principal); K08.89 Other specified disorders of teeth and supporting structures
CPT/HCPCS: 99283

== ENCOUNTER 2024-04-25 16:07 | Emergency (ER) | payer MEDICAID, SELFPAY ==
[2024-04-25 16:31] VITALS: BP 117/72; PULSE 76; RESP 10; TEMP 36.6; O2SAT 97
--- OUTSIDE RECORDS SUMMARY | 2024-04-25 16:40 | XMS_ITS | Referral Summary ---
Author Organization [facility] Address [address] [place] [address] Care Team Providers Care Cosmetics Machine Operator Name Role Phone Unknown, Provider Primary Care Provider Allergies No known active allergies Medications No known medications Active Problems Problem Noted Date Diagnosed Date ADHD (attention deficit hyperactivity disorder) 09/04/2009 Overview: IEP 'emotional disorder', upset neurotic disorder' 04/2008 Acne 03/07/2009 Immunizations Name Administration Dates Next Due DTaP Vaccine (INFANRIX) <7YO IM 05/22/19 95,08/14/1994,05/21/1994,03/08 Hepatitis B 10/29/1994, 4,03/08/1994,01/15 Hib 08/14/1994,05/21/1994,03/08/1994 Influenza Vaccine =>3yo Split IM 04/18/2010 MMR Vaccine SQ 11/16/2007,12/30/1994 Meningococcal Conjugate (MCV 4) Vaccine (MENACTRA) 4-Valent IM 11/16/2007 Poliovirus Vaccine IPV IM OR SQ 11/16/19 08,08/14/1994,05/21/1994,03/08 Tdap Vaccine =>7YO IM 11/16/2007 Varicella (Chickenpox) vacci ne (VARIVAX) SQ 12/23/2007,11/16/2007 Social History Tobacco Use Types Packs/Day Years Used Date Smoking Tobacco: Never Alcohol Use Standard Drinks/Week Comments No 0 (1 standard drink = 0.6 oz pur e alcohol) Sex and Gender Information Value Date Recorded Sex Assigned at Not on file Gender Identity Not on file Sexual Orientation Not on file Last Filed Vital Signs Vital Sign Reading Time Taken Comments Blood Pressure 126/62 01/21/2012 1631 EDT Pulse 78 01/21/2012 1631 EDT Temperature 36.7 ??C (98.1 ??F) 01/21/2012 1631 EDT Respiratory Rate 16 01/21/2012 1631 EDT Oxygen Saturation 97% 01/21/2012 1631 EDT Inhaled Oxygen Concentration - - Weight 56.7 kg (125 lb) 02/11/2011 0935 EDT Height 166.8 cm (5' 5.67) 04/05/2010 1048 EDT Body Mass Index - - Plan of Treatment Not on file Procedures Procedure Name Priority Date/Time Associated Diagnosis Comments HCV RNA DETECT QUANT Routine 06/10/2023 10:43 EST from Last 3 Months or Most Recently Relevant to Health Maintenance Results * HCV RNA DETECT QUANT (06/10/2023 10:43 EST) HCV RNA Qualitative Undetected Undetected 06/11/2023 13:36 EST [facility] Blood VENOUS BLOOD / Unknown 06/10/2023 10:43 EST 06/10/2023 17:15 EST Narrative [facility] - 06/11/2023 13:36 EST The quantification range of this assay is 15 IU/mL to 100,000,000 IU/mL. Testing was performed using the Jae HCV test ([employer] with the jae [id number] System. Provider Outr Resulting Lab CHEMISTRY & BLOOD GAS ORDERABLES [facility] [address] [place] [address] from Last 3 Months or Most Recently Relevant to Health Maintenance Care Teams Cosmetics Machine Operator Relationship Specialty Start Date End Date Unknown, Provider, PCP - General 10/19/13
--- OUTSIDE RECORDS SUMMARY | 2024-04-25 16:40 | XMS_ITS | Encounter Summary ---
Author Organization [facility] Address [address] [place] [address] Care Team Providers Care Fund Development Manager Name Role Phone Scarlet Del Cid Primary Care Provider Unavailab le Reason for Visit * Reason Onset Date Comments Medications Refill 12/04/2010 Encounter Details Date Type Department Care Team (Late st Contact Info) Description 12/04/2010 Telephone [facility] Pediatric Primary Care - [address] [address] Scarlet Del Cid Medications Refill Social History Tobacco Use Types Packs/Day Years Used Date Smoking Tobacco: Never Alcohol Use Standard Drinks/Week Comments No 0 (1 standard drink = 0.6 oz pur e alcohol) Sex and Gender Information Value Date Recorded Sex Assigned at Not on file Gender Identity Not on file Sexual Orientation Not on file documented as of this encounter Miscellaneous Notes * Telephone Encounter - Vivien Schwartz - 12/04/2010 1722 EDT Mother states Wm off adderall, clonidine; now on only Strattera 60 mg, and Risperdal on higher dose, per Dr. Spence. No need for any refills from [facility]. * Telephone Encounter - Scarlet Cruz - 12/04/2010 1110 EDT MOM STATES GOT RX FROM DR. SPENCE-OUR OFF DOES NOT FILL THE RX documented in this encounter Plan of Treatment Not on file documented as of this encounter Visit Diagnoses Not on filedocumented in this encounter Care Teams Fund Development Manager Relationship Specialty Start Date End Date Scarlet Del Cid PCP - General 11/17/09 10/18/13 documented as of this encounter
--- OUTSIDE RECORDS SUMMARY | 2024-04-25 16:40 | XMS_ITS | Encounter Summary ---
Author Organization [facility] Address [address] [place] [address] Care Team Providers Care Telecommunications Switch Technician Name Role Phone Unknown, Provider Primary Care Provider Encounter Details Date Type Department Care Team (Late st Contact Info) Description 06/10/2023 Lab Requisition [facility] Pathology & Laboratory Medicine - [address] [id number] Outr Resulting Lab, Provider Social History Tobacco Use Types Packs/Day Years Used Date Smoking Tobacco: Never Assessed Sex and Gender Information Value Date Recorded Sex Assigned at Not on file Gender Identity Not on file Sexual Orientation Not on file documented as of this encounter Plan of Treatment Not on file documented as of this encounter Procedures Procedure Name Priority Date/Time Associated Diagnosis Comments HIV 1/2 ANTIGEN AND ANTIBODY, 4TH GENERATION Routine 06/10/2023 10:43 EST documented in this encounter Results * HIV 1/2 ANTIGEN AND ANTIBODY, 4TH GENERATION (06/10/2023 10:43 EST) HIV 1 and 2 Antibody/p24 Antigen, 4th Generation Negative Negative 06/11/2023 10:48 EST [facility] Comment:If acute HIV-1 infec tion is suspected in a high risk patient, submit plasma specimen for HIV-1 RNA quantitation test. Blood VENOUS BLOOD / Unknown 06/10/2023 10:43 EST 06/10/2023 17:14 EST Narrative [facility] - 06/11/2023 10:48 EST Fourth Generation assay performed on the Siemens Centaur XPT. Provider Outr Resulting Lab IMMUNOLOGY A ND SEROLOGY ORDERABLES [facility] [address] [place] [address] documented in this encounter Visit Diagnoses Not on filedocumented in this encounter Care Teams Telecommunications Switch Technician Relationship Specialty Start Date End Date Unknown, Provider, PCP - General 10/19/13 documented as of this encounter
--- OUTSIDE RECORDS SUMMARY | 2024-04-25 16:40 | XMS_ITS | Encounter Summary ---
Author Organization [facility] Address [address] [place] [address] Care Team Providers Care Air Pollution Engineer Name Role Phone Scarlet Del Cid Primary Care Provider Unavailab le Reason for Visit * Reason Comments Laceration Pt arrives reporting laceration from a rock on Friday, had wound sutured, went to see PEDS for followup and referred to the ED for possible I&D d/t swelling and redness. Pt started on Keflex at time of suturing. Encounter Details Date Type Department Care Team (Late st Contact Info) Description 01/21/2012 16:25 EDT - 01/21/2012 19:00 EDT Emergency [facility] Emergency Department - Main [address] [address] Mark Ruiz, LORENAC [address] [place] [phone] Emergency, MD Piotr Wound infection Discharge Disposition: Home or Self Care Social History Tobacco Use Types Packs/Day Years Used Date Smoking Tobacco: Never Alcohol Use Standard Drinks/Week Comments No 0 (1 standard drink = 0.6 oz pur e alcohol) Sex and Gender Information Value Date Recorded Sex Assigned at Not on file Gender Identity Not on file Sexual Orientation Not on file documented as of this encounter Last Filed Vital Signs Vital Sign Reading Time Taken Comments Blood Pressure 126/62 01/21/2012 1631 EDT Pulse 78 01/21/2012 1631 EDT Temperature 36.7 ??C (98.1 ??F) 01/21/2012 1631 EDT Respiratory Rate 16 01/21/2012 1631 EDT Oxygen Saturation 97% 01/21/2012 1631 EDT Inhaled Oxygen Concentration - - Weight - - Height - - Body Mass Index - - documented in this encounter Discharge Instructions * Discharge Instructions* Mark Ruiz - 01/21/2012 18:54 EDT Splint must stay on clean and dry. You may remove the splint daily for wound check and dressing changes. Elevate the affected extremity at all times for the next week until you are seen by your primary care physician and have the remainder of the sutures removed. Discontinue use of Keflex antibiotic. Fill prescription for clindamycin and take as directed. * Attachments The following attachments cannot be sent through Care Everywhere. * WOUND CARE: AFTER YOUR VISIT TO THE EMERGENCY ROOM ([facility]) documented in this encounter Medications at Time of Discharge Medication Sig Dispensed Refills Start Date End Date clindamycin (CLEOCIN) 300 mg capsule Take 1 Cap by mouth 4 times daily for 10 days. 28 Cap 0 01/21/2012 01/31/2012 documented as of this encounter Ordered Prescriptions Prescription Sig Dispensed Refills Start Date End Da te clindamycin (CLEOCIN) 300 mg capsule Take 1 Cap by mouth 4 times daily for 10 days. 28 Cap 0 01/21/2012 01/31/2012 documented in this encounter Discharge Disposition Disposition Code Departure Means Destination Home or Self Care Car Home documented in this encounter ED Notes * Mark Ruiz - 01/21/2012 1837 EDT Images from the original note were not included. DOS: 01/21/2012 Chief Complaint Patient presents with ??? Laceration Pt arrives reporting laceration from a rock on Friday, had wound sutured, went to see PEDS for followup and referred to the ED for possible I&D d/t swelling and redness. Pt started on Keflex at time of suturing. The patient is a 16 y.o. male who presents today with Laceration HPI Comments: 16-year-old male presents to the emergency department for evaluation of wound. Patient states he jumped onto a rock lacerating the bottom of his right foot 4 days ago in a river. Patient was seen at another ER, had laceration repair performed and was started on Keflex. Patient had a wound check today at his traveling sales executive's office. Patient was referred to the emergency department for further evaluation due to infection of laceration repair. The history is provided by the patient. Laceration The incident occurred more than 2 days ago. The laceration is located on the right foot. The laceration is 6 cm in size. Injury mechanism: dirty rock in a river. The pain is at a severity of 4/10. The pain is moderate. The pain has been constant since onset. He reports no foreign bodies present. His tetanus status is UTD. Review of Systems Constitutional: Negative. HENT: Negative. Respiratory: Negative. Cardiovascular: Negative. Musculoskeletal: Positive for arthralgias (right foot). Skin: Positive for color change ( erythema noted surrounding laceration repair) and wound (laceration repair plantar surface right foot). Neurological: Negative. Psychiatric/Behavioral: Negative. Past Medical History Diagnosis Date ??? Psychiatric problem ADHD History reviewed. No pertinent past surgical history. No Known Allergies History Substance Use Topics ??? Smoking status: Never Smoker ??? Smokeless tobacco: Not on file ??? Alcohol Use: No No family history on file. Vital Signs Temp: 36.7 ??C (98.1 ??F) Temp src: Tympanic Pulse: 78 Resp: 16 SpO2: 97 % BP: 126/62 mmHg BP Device: BP Machine O2 Device: None (Room air) Physical Exam Nursing note and vitals reviewed. Constitutional: He is oriented to person, place, and time. He appears well- developed and well-nourished. HENT: Head: Normocephalic and atraumatic. Eyes: EOM are normal. Neck: Normal range of motion. Pulmonary/Chest: Effort normal. Musculoskeletal: Normal range of motion. Right foot: He exhibits tenderness. He exhibits normal range of motion, no bony tenderness, no swelling, normal capillary refill, no crepitus, no deformity and no laceration. Feet: Neurological: He is alert and oriented to person, place, and time. Skin: Skin is warm and dry. There is erythema. Psychiatric: He has a normal mood and affect. His behavior is normal. Verbal consent obtained from patient to allow insertion of photograph in the chart. Photograph of infected laceration repair after 4 sutures have been removed to allow spontaneous drainage. Verbal consent obtained from patient to allow insertion of photograph in the chart. Radiology orders: None Procedures ED Course: A medical screening exam was performed. Well-developed, well-nourished male. Musculoskeletal examination, right lower extremity, foot notes 6 and a laceration repair plantar surface midfoot. Sutures are intact however there is erythema noted surrounding the entire laceration repair. Smallamount of purulent and serous sanguinous fluid is expressed between sutures when palpated around laceration repair. 4 sutures are removed, bacitracin and nonstick dressing applied by provider. Posterior removable splint placed by EMT. Patient is given 900 mg IV clindamycin. Instructions to discontinue use of Keflex, changing to oral clindamycin 500 mg 4 times a day for 10 days. Patient is instructed to elevate the affected extremity at all times, may remove splint daily for wound check and dressing change. Patient is instructed to followup in 7 days with his traveling sales executive for suture removal and wound check. Disposition: Discharged The patient's pain was managed to an adequate level weighing risk vs. benefit of further medications. Upon departure from the Emergency Department, the patient's pain was 4 on a zero to ten scale. Condition at departure from the Emergency Department: Stable Discharge Prescriptions New Prescriptions CLINDAMYCIN (CLEOCIN) 300 MG CAPSULE Take 1 Cap by mouth 4 times daily for 10 days. MDM Number of Diagnoses or Management Options Diagnosis management comments: 3 Risk of Complications, Morbidity, and/or Mortality Presenting problems: low Diagnostic procedures: low Management options: minimal Patient Progress Patient progress: stable 1. Wound infection PCP: ZACK Lacy 01/21/2012 21:43 * Nick Morgan, RANDA - 01/21/2012 1759 EDT Esther VAZQUEZ at bedside to evaluate patient. * Kamran Balderas - 01/21/2012 1659 EDT Given water in the waiting room. Still awaiting a room. * Kamran Balderas - 01/21/2012 1625 EDT TCALL: VLADISLAV ABRAMS [facility] REFERS PT TO ED FOR EVAL. CC: LACERATION TO FOOT WHICH WAS SUTURED IN E.D. NOW CELLULITIS. NEEDS I&D (GMD) documented in this encounter Miscellaneous Notes * Scanned Note-Null - CELL TENDER HELPER, SCAN 2 - 01/23/2012 0950 EDT documented in this encounter Plan of Treatment Not on file documented as of this encounter Visit Diagnoses Diagnosis Wound infection Posttraumatic wound infection not elsewhere classified documented in this encounter Administered Medications Inactive Administered Medications - up to 3 most recent administrations Medication Order MAR Action Action Date Dose Rate Site clindamycin (CLEOCIN) IVPB 900 mg 900 mg, intravenous, Administer over 30 Minutes, Once (Without Time Specified), 1 dose, Starting on Fri01/21/12 at 1830, Until Fri01/21/12 at 1816, STAT Given 01/21/2012 18:16 EDT 900 mg documented in this encounter Discontinued Medications Medication Sig Discontinue Reason Start Date End Da te amphetamine-dextroamphet amine (ADDERALL XR) 20 mg XR capsuleIndications:ADHD (attention deficit hyperactivity disorder) Take 1 Cap by mouth daily with breakfast. Therapy completed 10/17/2010 01/21/2012 atomoxetine (STRATTERA) 40 mg capsuleIndications:ADHD (attention deficit hyperactivity disorder) Take 1 Cap by mouth daily. Therapy completed 10/08/2010 01/21/2012 atomoxetine (STRATTERA) 60 mg capsule Take 60 mg by mouth daily. Therapy completed 01/21/2012 cephALEXin (KEFLEX) 500 mg capsule Take by mouth every 12 hours. Therapy completed 01/21/2012 clindamycin (CLEOCIN T) 1 % lotionIndications:Acne Apply topically daily. use thin film on affected area Therapy completed 04/05/2010 01/21/2012 GUANFACINE HCL (GUANFACINE ORAL) Take 1 mg by mouth daily. Therapy completed 04/05/2010 01/21/2012 cloNIDine (CATAPRES) 0.2 mg tabletIndications:ADHD (attention deficit hyperactivity disorder) Take 1 Tab by mouth daily. Therapy completed 09/18/2010 01/21/2012 risperidone (RISPERDAL) 0.5 mg tabletIndications:ADHD (attention deficit hyperactivity disorder) Take 1 Tab by mouth daily. Take at bedtime. Therapy completed 09/21/2010 01/21/2012 tretinoin (RETIN-A) 0.1 % creamIndications:Acne Apply topically at bedtime. . Therapy completed 04/05/2010 01/21/2012 documented as of this encounter Active and Recently Administered Medications Times are shown in EDT. Scheduled Medication Order 01/19/2012 01/20/2012 01/21/2012 clindamycin (CLEOCIN) IVPB 900 mg (COMPLETED) 900 mg, intravenous, Administer over 30 Minutes, Once (Without Time Specified), 1 dose, Starting on Fri01/21/12 at 1830, Until Fri01/21/12 at 1816, STAT 1816 (Given - Provid er: Nick Morgan RN)1843 (Completed - Provider: Nick Morgan RN) documented in this encounter Orders Medications Ordered That Sha ht Not Have Been Administered Count Last Ordered Date First Ordered Date clindamycin (CLEOCIN) IVPB 900 mg 1 012 Nursing Count Last Ordered Date First Orde red Date INSERT PERIPHERAL IV 1 01/21/2012 documented in this encounter Care Teams Air Pollution Engineer Relationship Specialty Start Date End Date Scarlet Del Cid PCP - General 11/17/09 10/18/13 documented as of this encounter
--- OUTSIDE RECORDS SUMMARY | 2024-04-25 16:40 | XMS_ITS | Encounter Summary ---
Author Organization [facility] Address [address] [place] [address] Care Team Providers Care Operator/Assistant Foreman Name Role Phone Scarlet Del Cid Primary Care Provider Unavailab le Reason for Visit * Reason Onset Date Comments Medication Problem 03/15/2010 Encounter Details Date Type Department Care Team (Late st Contact Info) Description 03/15/2010 Telephone [facility] Pediatric Primary Care - [address] [address] Scarlet Del Cid Medication Problem Social History Tobacco Use Types Packs/Day Years Used Date Smoking Tobacco: Never Alcohol Use Standard Drinks/Week Comments No 0 (1 standard drink = 0.6 oz pur e alcohol) Sex and Gender Information Value Date Recorded Sex Assigned at Not on file Gender Identity Not on file Sexual Orientation Not on file documented as of this encounter Miscellaneous Notes * Telephone Encounter - Marilee Pennington - 03/15/2010 1608 EDT Called mom to let her know that dose is correct. Mom said that she thought that it was. * Telephone Encounter - Kinza Johnson. - 03/15/2010 1541 EDT She just wants to verify that Vladislav's new Rx is correct dose. They refilled Rx recently for Risperidone. She thought it was supposed to be 0.5 milligrams --> and is actually now for 0.25 milligrams --> which might be correct, but she wants to confirm that this really is the weaker dose she wanted. Please call to confirm. Called chart in [facility] [place]. Note: They have an ROV med check appt with MLR scheduled already for 04/05/10. documented in this encounter Plan of Treatment Not on file documented as of this encounter Visit Diagnoses Not on filedocumented in this encounter Care Teams Operator/Assistant Foreman Relationship Specialty Start Date End Date Scarlet Del Cid PCP - General 11/17/09 10/18/13 documented as of this encounter
--- OUTSIDE RECORDS SUMMARY | 2024-04-25 16:40 | XMS_ITS | Encounter Summary ---
Author Organization [facility] Address [address] [place] [address] Care Team Providers Care Audio Visual Secretary Name Role Phone Scarlet Del Cid Primary Care Provider Unavailab le Reason for Visit * Reason Onset Date Comments Medications Refill 10/02/2010 straterra 40 mg Encounter Details Date Type Department Care Team (Late st Contact Info) Description 10/02/2010 Refill [facility] Pediatric Primary Care - [address] [phone] Chantell Coronel RN Medications Refill (straterra 40 mg) Social History Tobacco Use Types Packs/Day Years Used Date Smoking Tobacco: Never Alcohol Use Standard Drinks/Week Comments No 0 (1 standard drink = 0.6 oz pur e alcohol) Sex and Gender Information Value Date Recorded Sex Assigned at Not on file Gender Identity Not on file Sexual Orientation Not on file documented as of this encounter Miscellaneous Notes * Telephone Encounter - Dolores Sheppard RN - 10/05/2010 0941 EDT Letter sent to home as unable to reach by phone. Dolores Sheppard RN * Telephone Encounter - Delmis Ward LPN - 10/02/2010 1627 EDT Left message for Sol to call [facility]. See MLR's note. * Telephone Encounter - Scarlet Del Cid PNP - 10/02/2010 1600 EDT My note of 03/16 visits states his psychiatric care and meds were to be transferred to [place]. Please ask guardian (who is aunt) if he was ever seen there. * Telephone Encounter - Chantell Coronel RN - 10/02/2010 1336 EDT Pharmacy says last refill of Straterra was 07/26/10 . However our records say last refill was 04/05/10. Pt is also on addreall . Unable to reach family . TC to Pharmacy Straterra scripts being written by Chelsey Orellana MD. Last straterra picked up 07/26/10 . Will need to ask PCP Scarlet del cid how to proceed since not clear at all. documented in this encounter Plan of Treatment Not on file documented as of this encounter Visit Diagnoses Not on filedocumented in this encounter Care Teams Audio Visual Secretary Relationship Specialty Start Date End Date Scarlet Dle Cid PCP - General 11/17/09 10/18/13 documented as of this encounter
--- OUTSIDE RECORDS SUMMARY | 2024-04-25 16:40 | XMS_ITS | Encounter Summary ---
Author Organization [facility] Address [address] [place] [address] Care Team Providers Care Long Distance Operator Name Role Phone Scarlet Del Cid Primary Care Provider Unavailab le Reason for Visit * Reason Onset Date Comments Medications Refill 09/21/2010 Encounter Details Date Type Department Care Team (Late st Contact Info) Description 09/21/2010 Refill [facility] Pediatric Primary Care - [address] [phone] Marshall Hernandez MD [address] [place] [phone] Medications Refill Social History Tobacco Use Types Packs/Day Years Used Date Smoking Tobacco: Never Alcohol Use Standard Drinks/Week Comments No 0 (1 standard drink = 0.6 oz pur e alcohol) Sex and Gender Information Value Date Recorded Sex Assigned at Not on file Gender Identity Not on file Sexual Orientation Not on file documented as of this encounter Ordered Prescriptions Prescription Sig Dispensed Refills Start Date End Da te risperidone (RISPERDAL) 0.5 mg tabletIndications:ADHD (attention deficit hyperactivity disorder) Take 1 Tab by mouth daily. Take at bedtime. 30 Tab 5 09/21/2010 01/21/2012 documented in this encounter Miscellaneous Notes * Telephone Encounter - Marshall Hernandez MD - 09/21/2010 9036 EDT Spoke with [facility] pharmacist that confirmed that Vladislav's dose of Resperdol was increased from 0.25 to 0[address] Chelsey Orellana. His current prescription is for 0.50 mg once daily before bed. I will update this in the medical record and we will refill his Risperdol at the higher dose. Marshall Hernandez MD documented in this encounter Plan of Treatment Not on file documented as of this encounter Visit Diagnoses Diagnosis ADHD (attention deficit hyperactivity disorder)- Primary Attention deficit disorder with hyperactivity documented in this encounter Discontinued Medications Medication Sig Discontinue Reason Start Date End Da te risperidone (RISPERDAL) 0.25 mg tabletIndications:ADHD (attention deficit hyperactivity disorder) Take 1 Tab by mouth as needed. 09/21/2010 09/21/2010 documented as of this encounter Care Teams Long Distance Operator Relationship Specialty Start Date End Date Scarlet Del Cid PCP - General 11/17/09 10/18/13 documented as of this encounter
--- OUTSIDE RECORDS SUMMARY | 2024-04-25 16:40 | XMS_ITS | Encounter Summary ---
Author Organization [facility] Address [address] [place] [address] Care Team Providers Care Social Worker School Name Role Phone Scarlet Del Cid Primary Care Provider Unavailab le Reason for Visit * Reason Comments Pharyngitis [facility] fever chills b neeraj aches x 3-4 days. hx of Strep throat . Mom Gen in waiting room Encounter Details Date Type Department Care Team (Late st Contact Info) Description 02/11/2011 9:30 EDT Office Visit [facility] Pediatric Primary Care [address] [address] Erika Alfonso MD [address] [place] [address] [address] [place] [address] Pharyngitis (Primary Dx) Social History Tobacco Use Types Packs/Day Years [...] Sign Reading Time Taken Comments Blood Pressure - - Pulse - - Temperature 37.5 ??C (99.5 ??F) 02/11/2011 0935 EDT Respiratory Rate - - Oxygen Saturation - - Inhaled Oxygen Concentration - - Weight 56.7 kg (125 lb) 02/11/2011 0935 EDT Height - - Body Mass Index - - documented in this encounter Progress Notes * Erika Alfonso MD - 02/11/2011 1004 EDT Subjective: Patient ID: Vladislav Bear is an 15 y.o. male. Chief Complaint Patient presents with ??? Pharyngitis [facility] fever chills body aches x 3-4 days. hx of Strep throat . Obie Gifford in waiting room HPI Sick for 3-4 days. Woke up with head rangel, got a little dizzy, then developed sore throat, head ache, body aches, cold and hot flashes, poor sleep. No vomiting, but having diarrhea. Some stomach aches. Able to eat, but hurts throat. fluilds okay. Using excedrine, tylenol at 4 am. PMH - usually healthy, takes strattera and respirdol (Dr. Balaji Coreas) Patient Active Problem List Diagnoses Code ??? ADHD (attention deficit hyperactivity disorder) 314.01M ??? Acne 706.1AQ Past Medical History Diagnosis Date ??? Psychiatric problem ADHD Current outpatient prescriptions ordered prior to encounter Medication Sig Dispense Refill ??? amphetamine-dextroamphetamine (ADDERALL XR) 20 mg XR capsule Take 1 Cap by mouth daily with breakfast. 30 Cap 0 ??? atomoxetine (STRATTERA) 40 mg capsule Take 1 Cap by mouth daily. 30 Cap 1 ??? risperidone (RISPERDAL) 0.5 mg tablet Take 1 Tab by mouth daily. Take at bedtime. 30 Tab 5 ??? cloNIDine (CATAPRES) 0.2 mg tablet Take 1 Tab by mouth daily. 90 Tab 3 ??? tretinoin (RETIN-A) 0.1 % cream Apply topically at bedtime. . 60 g 11 ??? clindamycin (CLEOCIN T) 1 % lotion Apply topically daily. use thin film on affected area 50 mL 3 ??? GUANFACINE HCL (GUANFACINE ORAL) Take 1 mg by mouth daily. No Known Allergies Social History Substance Use Topics ??? Smoking status: Never Smoker ??? Smokeless tobacco: Not on file ??? Alcohol Use: No Review of Systems Constitutional: Positive for fever and malaise/fatigue. HENT: Positive for congestion and sore throat. Respiratory: Negative for cough. Skin: Negative for rash. Neurological: Positive for headaches. - See HPI Objective: Temp(Src) 37.5 ??C (99.5 ??F) (Tympanic) Wt 56.7 kg (125 lb) Physical Exam Constitutional: He appears well-developed and well-nourished. No distress. HENT: Nose: Nose normal. Mouth/Throat: Oropharyngeal exudate present. Tm's scarred but normal Tonsils enlarged and red, palatal petechiae, some areas of exudate and possible ulceration Eyes: Conjunctivae are normal. Neck: Normal range of motion. Cardiovascular: Normal rate, regular rhythm and normal heart sounds. Pulmonary/Chest: Effort normal and breath sounds normal. No respiratory distress. He has no wheezes. He has no rales. Abdominal: Soft. He exhibits no mass. No tenderness. No hepatosplenomegaly Musculoskeletal: Normal range of motion. Lymphadenopathy: He has cervical adenopathy (tender submandibular nodes). Neurological: He is alert. Skin: Skin is warm and dry. No rash noted. Assessment and Plan: Vladislav was seen today for pharyngitis. Diagnoses and associated orders for this visit: Pharyngitis - POCT Rapid Strep Screen - Pharyngitis Culture Plenty of fluids and rest, tylenol as needed for fever and pain. Call if symptoms worsen. If symptoms do not begin to improve over next week, or worsen, consider testing for mono documented in this encounter Plan of Treatment Not on file documented as of this encounter Procedures Procedure Name Priority Date/Time Associated Diagnosis Comments GROUP A STREP CULTURE Routine 02/11/2011 10:05 EDT Pharyngitis POCT RAPID STREP SCREEN Routine 02/11/2011 9:35 EDT Pharyngitis documented in this encounter Results * PHARYNGITIS CULTURE (02/11/2011 10:05 EDT) Specimen Description Throat [facility] Result No group A beta streptococci isolated. Usual jennifer-pharyngeal marta. [facility] Report Status Final 02/13/2011 [facility] Specimen of unknown material (specimen) 02/11/2011 10:05 EDT 02/11/2011 20:18 EDT Erika Alfonso MD MICROBIOLOGY - GENERAL ORDERABLES [facility] [address] [place] [address] * POCT RAPID STREP SCREEN (02/11/2011 9:35 EDT) Rapid Strep Test, POC Negative Negative POINT OF CARE Background Clear? Yes POINT OF CARE Control Line Present Yes POINT OF CARE Rgt A + Rgt B= Yellow: Yes POINT OF CARE Culture Sent to Lab? Yes POINT OF CARE Specimen of unknown material (specimen) 02/11/2011 9:35 EDT Erika Alfonso MD POINT OF CARE TEST ORDERABLES Performing Organization Address [facility] Co de Phone Number POINT OF CARE documented in this encounter Visit Diagnoses Diagnosis Pharyngitis- Primary Acute pharyngitis documented in this encounter Care Teams Social Worker School Relationship Specialty Start Date End Date Scarlet Del Cid PCP - General 11/17/09 10/18/13 documented as of this encounter
--- OUTSIDE RECORDS SUMMARY | 2024-04-25 16:40 | XMS_ITS | Encounter Summary ---
Author Organization [facility] Address [address] [place] [address] Care Team Providers Care Food Service Ambassador Name Role Phone Unknown, Provider Primary Care Provider Reason for Visit * Reason Onset Date Comments Follow-up 10/03/2014 Encounter Details Date Type Department Care Team ([facility] st Contact Info) Description 10/03/2014 Telephone [email or web address] Pediatric Primary Care - [address] [phone] Unknown, Provider, Follow-up Social History Tobacco Use Types Packs/Day Years Used Date Smoking Tobacco: Never Alcohol Use Standard Drinks/Week Comments No 0 (1 standard drink = 0.6 oz pur e alcohol) Sex and Gender Information Value Date Recorded Sex Assigned at Not on file Gender Identity Not on file Sexual Orientation Not on file documented as of this encounter Miscellaneous Notes * Telephone Encounter - Danna Gallardo RN - 10/12/2014 1604 EDT Spoke to pt's mother, Sol Bear, to advise her that ROCK CLIMBING TEAM MEMBER Rema Song will see him as anew patient. Sol says since pt is 18 years old, and an adult, she will have the patient call our office to establish care and set up a new patient visit. * Telephone Encounter - Rema Song NP - 10/12/2014 1328 EDT I'm happy to see him for a NPV. * Telephone Encounter - Chantell Coronel, RN - 10/07/2014 1239 EDT Noted. * Telephone Encounter - Kinza Johnson - 10/06/2014 1752 EDT This patient seems better suited to make the transition to adult primary care, so am routing this to [facility] music producer pool for follow up please. Per Delmis Ward's note below ([facility] CCLPN), patient's mother intends to have him seen by Demetria Song [facility] ROCK CLIMBING TEAM MEMBER. I just canceled the 10/13/14 appointment that had been erroneously booked at [facility]. I am also routing this message to relevant [facility] providers and staff members in case there are questions from [facility] re: follow up plan. * Telephone Encounter - Delmis Ward LPN - 10/05/2014 1016 EDT I called [facility] and left messages for Sol dan and Mary Ann Thomas in regards to Kvng appointment with Dr Waggoner on 10-13-14. I then called kvng mother Sol Marianela and she stated that letty was being dischargedat 8:oo this morning and returning to a half way house somewhere in [place]. Mother also stated that Letty has not had a checkup in 6 years because he's been in and out of long term, and he will be on house arrest when returns to [place]. I explained to Sol([facility] [place] that Letty needs a physician that works with adults, that his needs exceeded a pediatricians scope of practice. Mom does not know if letty will call her, per mom,He only calls when he needs something.. Mom states that if she does talk with him she will let hjim know and she will try to have him seen by her provider, Demetria Song. Mom will let us know what happens. * Telephone Encounter - Chantell Coronel, RN - 10/03/2014 2839 EDT Pt is [place]. Needs a follow up visit with PCP. Explained that we will need notes from his stay. The rifle case repairer will fax the notes to our office attention triage. Trans to [facility] to schedule a FU visit. As requested No barriers wafer line worker will call back with questions or concerns , or worsening s/s * Telephone Encounter - Rebekah Alfonso - 10/03/2014 1519 EDT Follow up rehab documented in this encounter Plan of Treatment Not on file documented as of this encounter Visit Diagnoses Not on filedocumented in this encounter Care Teams Food Service Ambassador Relationship Specialty Start Date End Date Unknown, Provider, PCP - General 10/19/13 documented as of this encounter
--- OUTSIDE RECORDS SUMMARY | 2024-04-25 16:40 | XMS_ITS | Encounter Summary ---
Author Organization [facility] Address [address] [place] [address] Care Team Providers Care Store Director Name Role Phone Scarlet Del Cid Primary Care Provider Unavailab le Reason for Visit * Reason Onset Date Comments Medications Refill 12/01/2010 strattera Encounter Details Date Type Department Care Team (Late st Contact Info) Description 12/01/2010 Refill [facility] Pediatric Primary Care - [place] [address] [place], [place] [phone] Holli Power MD [address] [facility] [address] [place] [address] Medications Refill (strattera) Social History Tobacco Use Types Packs/Day Years Used Date Smoking Tobacco: Never Alcohol Use Standard Drinks/Week Comments No 0 (1 standard drink = 0.6 oz pur e alcohol) Sex and Gender Information Value Date Recorded Sex Assigned at Not on file Gender Identity Not on file Sexual Orientation Not on file documented as of this encounter Miscellaneous Notes * Telephone Encounter - Holli Power MD - 12/02/2010 1332 EDT Patient had been prescribed previously because psychiatrist was on leave for 3 months. Uncomfortable prescribing further without documentation from previous provider or [facility] appointment. May offer apptmt with PCP MLR or recommend that they contact covering mental health provider. Holli Power MD * Telephone Encounter - Vivien Schwartz - 12/02/2010 1215 EDT Sure-scripts request for refilll Strattera 40 mg. No answer at home #. Last refill 10-08-10. Last ADHD /med check 04-05-10. See last note per Dr. Craig 10-18-10; MLR- needs to contact psychiatry for f/u.To POD / PCP for review/plan. documented in this encounter Plan of Treatment Not on file documented as of this encounter Visit Diagnoses Not on filedocumented in this encounter Care Teams Store Director Relationship Specialty Start Date End Date Scarlet Del Cid PCP - General 11/17/09 10/18/13 documented as of this encounter
--- OUTSIDE RECORDS SUMMARY | 2024-04-25 16:40 | XMS_ITS | Encounter Summary ---
Author Organization [facility] Address [address] [place] [address] Care Team Providers Care Casino Gaming Inspector Name Role Phone Scarlet Del Cid Primary Care Provider Unavailab le Reason for Visit * Reason Onset Date Comments Medications Refill 09/18/2010 Encounter Details Date Type Department Care Team (Late st Contact Info) Description 09/18/2010 Refill [facility] Pediatric Primary Care [address] [phone] Marilee Pennington LPN [address] [place] [address] Medications Refill Social History Tobacco Use Types [...] Dispensed Refills Start Date End Da te cloNIDine (CATAPRES) 0.2 mg tabletIndications:ADHD (attention deficit hyperactivity disorder) Take 1 Tab by mouth daily. 90 Tab 3 09/18/2010 01/21/2012 documented in this encounter Miscellaneous Notes * Telephone Encounter - Marshall Hernandez MD - 09/18/2010 1332 EDT Reviewed and approve refill. Marshall Hernandez MD * Telephone Encounter - Marilee Pennington - 09/18/2010 1323 EDT Last refill 02/12. Last med check 04/05/10 documented in this encounter Plan of Treatment Not on file documented as of this encounter Visit Diagnoses Diagnosis ADHD (attention deficit hyperactivity disorder)- Primary Attention deficit disorder with hyperactivity documented in this encounter Discontinued Medications Medication Sig Discontinue Reason Start Date End Da te clonidine (CATAPRES) 0.2 mg tablet Take 0.2 mg by mouth daily. Reorder 09/18/2010 documented as of this encounter Care Teams Casino Gaming Inspector Relationship Specialty Start Date End Date Scarlet Del Cid PCP - General 11/17/09 10/18/13 documented as of this encounter
--- OUTSIDE RECORDS SUMMARY | 2024-04-25 16:40 | XMS_ITS | Encounter Summary ---
Author Organization [facility] Address [address] [place] [address] Care Team Providers Care Court Orderly Name Role Phone Scarlet Del Cid Primary Care Provider Unavailab le Reason for Visit * Reason Comments Pharyngitis sore for last 3 days , some largyngitis. Thinks has had fever @ home. Encounter Details Date Type Department Care Team ([facility] st Contact Info) Description 04/26/2010 15:15 EDT Office Visit [facility] Pediatric Primary Care - [address] [phone] Chantell Ashley APRN Pharyngitis (Primary Dx) Discharge Disposition: Auto Discharge Social History Tobacco Use Types Packs/Day Years [...] Pressure - - Pulse - - Temperature 37.2 ??C (99 ??F) 04/26/2010 1548 EDT Respiratory Rate - - Oxygen Saturation - - Inhaled Oxygen Concentration - - Weight 49.4 kg (109 lb) 04/26/2010 1548 EDT Height - - Body Mass Index - - documented in this encounter Discharge Disposition Disposition Code Departure Means Destination Auto Discharge documented in this encounter Plan of Treatment Not on file documented as of this encounter Procedures Procedure Name Priority Date/Time Associated Diagnosis Comments GROUP A STREP CULTURE Routine 04/26/2010 17:10 EDT Pharyngitis POCT RAPID STREP SCREEN Routine 04/26/2010 15:50 EDT Pharyngitis documented in this encounter Results * PHARYNGITIS CULTURE (04/26/2010 17:10 EDT) Specimen Description Throat [facility] Result No group A beta streptococci isolated. Usual jennifer-pharyngeal marta. [facility] Report Status Final 04/28/2010 [facility] Specimen of unknown material (specimen) 04/26/2010 17:10 EDT 04/26/2010 21:38 EDT Chantell Ashley APRN MICROBIOLOGY - GENER AL ORDERABLES Performing Organization Address City/[facility]/ZIP Co de Phone Number [facility] [address] [place] [address] * POCT RAPID STREP SCREEN (04/26/2010 15:50 EDT) Rapid Strep Test, POC Negative Negative POINT OF CARE Background Clear? Yes POINT OF CARE Control Line Present Yes POINT OF CARE Rgt A + Rgt B= Yellow: Yes POINT OF CARE Culture Sent to Lab? Yes POINT OF CARE Specimen of unknown material (specimen) 04/26/2010 15:50 EDT Chantell Ashley APRN POINT OF CARE TEST O RDERABLES Performing Organization Address City/[facility]/ZIP Co de Phone Number POINT OF CARE documented in this encounter Visit Diagnoses Diagnosis Pharyngitis- Primary Acute pharyngitis documented in this encounter Care Teams Court Orderly Relationship Specialty Start Date End Date Scarlet Del Cid PCP - General 11/17/09 10/18/13 documented as of this encounter
--- OUTSIDE RECORDS SUMMARY | 2024-04-25 16:40 | XMS_ITS | Encounter Summary ---
Author Organization [facility] Address [address] [place] [address] Care Team Providers Care Enterprise Account Manager Name Role Phone Scarlet Del Cid Primary Care Provider Unavailab le Reason for Visit * Reason Comments Post-ED Follow Up here with mom. Feel from a bridge and sustained laceration to the rifht foot. 10 sutures. Encounter Details Date Type Department Care Team (Late st Contact Info) Description 01/21/2012 16:00 EDT Office Visit [facility] Pediatric Primary Care [address] [phone] Scarlet Del Cid Laceration; Cellulitis Social History Tobacco Use Types Packs/Day Years Used Date Smoking Tobacco: Never Alcohol Use Standard Drinks/Week Comments No 0 (1 standard drink = 0.6 oz pur e alcohol) Sex and Gender Information Value Date Recorded Sex Assigned at Not on file Gender Identity Not on file Sexual Orientation Not on file documented as of this encounter Progress Notes * Scarlet Del Cid, PNP - 01/21/20122054 EDT Images from the original note were not included. Subjective: Patient ID: Vladislav Bear is an 16 y.o. male. Chief Complaint Patient presents with ??? Post-ED Follow Up here with mom. Feel from a bridge and sustained laceration to the rifht foot. 10 sutures. HPI Foot laceration Fell 5 days ago from bridge landing on rock Seen at [facility] and received 10 sutures and put on Keflex.Uses crutches. Still has pain and small amount of discharge. Has missed no doses of meds. Disease Management: N/A Patient Active Problem List Diagnoses ??? ADHD (attention deficit hyperactivity disorder) ??? Acne Past Medical History Diagnosis Date ??? Psychiatric problem ADHD No current outpatient prescriptions on file prior to visit. No Known Allergies Social History Substance Use Topics ??? Smoking status: Never Smoker ??? Smokeless tobacco: Not on file ??? Alcohol Use: No Review of Systems Constitutional: Negative for fever. Musculoskeletal: Right foot pain in arch of foot. - See HPI Objective: There were no vitals taken for this visit. Physical Exam Musculoskeletal: Feet: Labs: N/A Assessment and Plan: Vladislav was seen today for post-ed follow up. Diagnoses and associated orders for this visit: Laceration Cellulitis To ER for evaluation Trade Facilitator was not used. documented in this encounter Plan of Treatment Not on file documented as of this encounter Visit Diagnoses Diagnosis Laceration Open wound(s) (multiple) of unspecified site(s), without mention of complication Cellulitis Cellulitis and abscess of unspecified site documented in this encounter Historical Medications * This list may reflect changes made after this encounter. Medication Sig Dispensed Refills Start Date End Date cephALEXin (KEFLEX) 500 mg capsule Take by mouth every 12 hours. 01/21/2012 added in this encounter Care Teams Enterprise Account Manager Relationship Specialty Start Date End Date Scarlet Del Cid PCP - General 11/17/09 10/18/13 documented as of this encounter
--- OUTSIDE RECORDS SUMMARY | 2024-04-25 16:40 | XMS_ITS | Encounter Summary ---
Author Organization [facility] Address [address] [place] [address] Care Team Providers Care Concrete Pump Operator Name Role Phone Scarlet Del Cid Primary Care Provider Unavailab le Reason for Visit * Reason Onset Date Comments Other 10/17/2010 Encounter Details Date Type Department Care Team (Late st Contact Info) Description 10/17/2010 Telephone [facility] Pediatric Primary Care - [address] [phone] Scarlet Del Cid Other Social History Tobacco Use Types Packs/Day Years [...] Dispensed Refills Start Date End Da te amphetamine-dextroamphetami ne (ADDERALL XR) 20 mg XR capsuleIndications:ADHD (attention deficit hyperactivity disorder) Take 1 Cap by mouth daily with breakfast. 30 Cap 0 10/17/2010 01/21/2012 documented in this encounter Miscellaneous Notes * Telephone Encounter - Vladislav Montilla, RN - 10/18/2010 1142 EDT rx adderall at pickup. Mom will orange picking supervisor today * Telephone Encounter - Yuval Craig MD - 10/17/2010 4558 EDT I have spoken with Scarlet Del Cid. She has received no letter and no e-mail from Dr Coreas and assuch feels unwilling to prescribe these medications. Please notify parents of this and encourage them to identify whomever is covering Dr Coreas duringthe leave of absence. Yuval Craig MD * Telephone Encounter - Dolores Sheppard RN - 10/17/2010 1132 EDTAddended by: DOLORES SHEPPARD on: 10/17/2010 Modules accepted: Orders, Medications * Telephone Encounter - Dolores Sheppard RN - 10/17/[address] Coreas has been doing the RX's, but has been on a 3 month leave. Family is leaving Friday for > one week. Sees Dr. Coreas once a month. Dr. Coreas was supposed to have emailed [facility] to inform that we need to prescribe Vladislav's meds in her absence. Advised will inform [facility] of this. Rx will beleft for pickup. The parent/patient indicates understanding of these issues and agrees with the plan. Dolores Sheppard RN * Telephone Encounter - Scarlet Del Cid PNP - 10/17/2010 1049 EDT My note of 03/2010 he was to be referred to psychiatrist at [facility], Dr. Rodriguez or Dr. Coreas,If was my understanding that his guardian, was to make that appt. Please call family and find out status of that as I feel he needs psychiatric appt due to his many medications. * Telephone Encounter - Dolores Sheppard RN - 10/17/2010 1001 EDT Last refill 09/14/2009. Last med check 04/05/2010. Will route to PCP ([facility]) for advise. Dolores Urdu, RN * Telephone Encounter - Charleen Addison - 10/17/2010 0907 EDT REFILL RX ADERILL WILL ENTERPRISE ACCOUNT EXECUTIVE documented in this encounter Plan of Treatment Not on file documented as of this encounter Visit Diagnoses Diagnosis ADHD (attention deficit hyperactivity disorder)- Primary Attention deficit disorder with hyperactivity documented in this encounter Discontinued Medications Medication Sig Discontinue Reason Start Date End Da te amphetamine-dextroamphetam ine (ADDERALL XR) 20 mg XR capsuleIndications:ADHD (attention deficit hyperactivity disorder) Take 1 Cap by mouth daily with breakfast. Reorder 09/14/2010 10/17/2010 documented as of this encounter Care Teams Concrete Pump Operator Relationship Specialty Start Date End Date Scarlet Del Cid PCP - General 11/17/09 10/18/13 documented as of this encounter
--- OUTSIDE RECORDS SUMMARY | 2024-04-25 16:40 | XMS_ITS | Encounter Summary ---
Author Organization [facility] Address [address] [place] [address] Care Team Providers Care Intake Assessor Name Role Phone Scarlet Del Cid Primary Care Provider Unavailab le Reason for Visit * Reason Onset Date Comments Medications Refill 09/21/2010 Encounter Details Date Type Department Care Team (Late st Contact Info) Description 09/21/2010 Refill [facility] Pediatric Primary Care [address] [phone] Marilee Pennington LPN [address] [place] [address] Medications Refill Social History Tobacco Use Types [...] Take 1 Tab by mouth as needed. 30 Tab 1 09/21/2010 09/21/2010 documented in this encounter Miscellaneous Notes * Telephone Encounter - Marshall Hernandez MD - 09/21/2010 1636 EDT Reviewed and approve refill. Marshall Hernandez MD * Telephone Encounter - Marilee Pennington - 09/21/2010 1330 EDT Last refill 03/16/10. Last HS 04/05/10, documented in this encounter Plan of Treatment Not on file documented as of this encounter Visit Diagnoses Diagnosis ADHD (attention deficit hyperactivity disorder) Attention deficit disorder with hyperactivity documented in this encounter Discontinued Medications Medication Sig Discontinue Reason Start Date End Da te risperidone (RISPERDAL) 0.25 mg tabletIndications:ADHD (attention deficit hyperactivity disorder) Take 1 Tab by mouth as needed. Reorder 03/07/2010 09/21/2010 documented as of this encounter Care Teams Intake Assessor Relationship Specialty Start Date End Date Scarlet Del Cid PCP - General 11/17/09 10/18/13 documented as of this encounter
--- OUTSIDE RECORDS SUMMARY | 2024-04-25 16:40 | XMS_ITS | Encounter Summary ---
Author Organization [facility] Address [address] [place] [address] Care Team Providers Care Event Decorator Name Role Phone Unknown, Provider Primary Care Provider Encounter Details Date Type Department Care Team (Late st Contact Info) Description 06/10/2023 Lab Requisition [facility] Pathology & Laboratory Medicine - [address] [phone] Outr Resulting Lab, Provider Social History Tobacco [...] RNA DETECT QUANT Routine 06/10/2023 10:43 EST HEPATITIS A TOTAL ANTIBODY W REFLEX Routine 06/10/2023 10:43 EST HEPATITIS B CORE ANTIBODY (TOTAL) Routine 06/10/2023 10:43 EST HEPATITIS B SURFACE ANTIBODY Routine 06/10/2023 10:43 EST HEPATITIS B SURFACE ANTIGEN Routine 06/10/2023 10:43 EST documented in this encounter Results * HCV RNA DETECT QUANT (06/10/2023 10:43 EST) HCV RNA Qualitative Undetected Undetected 06/11/2023 13:36 EST [facility] Blood VENOUS BLOOD / Unknown 06/10/2023 10:43 EST 06/10/2023 17:15 EST Narrative [facility] - 06/11/2023 13:36 EST The quantification range of this assay is 15 IU/mL to 100,000,000 IU/mL. Testing was performed using the Jae HCV test ([employer] with the jae [id number] System. Provider Outr Resulting Lab CHEMISTRY & BLOOD GAS ORDERABLES Performing Organization Address [facility] Co de Phone Number [facility] [address] [place] [address] * HEPATITIS B SURFACE ANTIBODY (06/10/2023 10:43 EST) Hep B Surface Ab, Quantitative 38.9 See Note mIU/mL 06/11/2023 17:31 [facility] Comment: Reference Range for Hep B Surface Ab, Quant: Positive: >= 10.0 mIU/mL Negative: ??< 10.0 mIU/mL Patient is presumed to be immune to infection with Hepatitis B Virus. Hep B Surface Ab, Qualitative Positive See Note 06/11/2023 17:31 [facility] Comment: Reference Range for Hep B Surface Ab, Qual: Unvaccinated: ??Negative Vaccinated: ??Positive Blood VENOUS BLOOD / Unknown 06/10/2023 10:43 EST 06/10/2023 17:14 EST Provider Outr Resulting Lab CHEMISTRY & BLOOD GAS ORDERABLES Performing Organization Address [facility] Co de Phone Number [facility] [address] [place] [address] * HEPATITIS B CORE ANTIBODY (TOTAL) (06/10/2023 10:43 EST) Hepatitis B Core Ab, Total Negative Negative 06/11/2023 18:21 EST [facility] Blood VENOUS BLOOD / Unknown 06/10/2023 10:43 EST 06/10/2023 17:14 EST Provider Outr Resulting Lab CHEMISTRY & BLOOD GAS ORDERABLES Performing Organization Address City/[facility]/ZIP Co de Phone Number [facility] [address] [place] [address] * HEPATITIS B SURFACE ANTIGEN (06/10/2023 10:43 EST) Hep B Surface Ag Negative Negative 06/11/2023 17:41 EST [facility] Blood VENOUS BLOOD / Unknown 06/10/2023 10:43 EST 06/10/2023 17:14 EST Provider Outr Resulting Lab CHEMISTRY & BLOOD GAS ORDERABLES Performing Organization Address [facility] de Phone Number [facility] [address] [place] [address] * HEPATITIS A TOTAL ANTIBODY W REFLEX (06/10/2023 10:43 EST) Hepatitis A Antibody, Total Negative Negative 06/11/2023 18:39 EST [facility] Blood VENOUS BLOOD / Unknown 06/10/2023 10:43 EST 06/10/2023 17:14 EST Narrative [facility] - 06/11/2023 18:39 EST The result of this assay can be falsely elevated (Positive) due to the consumption of Biotin. Provider Outr Resulting Lab CHEMISTRY & BLOOD GAS ORDERABLES Performing Organization Address [facility] de Phone Number [facility] [address] [place] [address] documented in this encounter Visit Diagnoses Not on filedocumented in this encounter Care Teams Event Decorator Relationship Specialty Start Date End Date Unknown, Provider, PCP - General 10/19/13 documented as of this encounter
--- OUTSIDE RECORDS SUMMARY | 2024-04-25 16:40 | XMS_ITS | Encounter Summary ---
Author Organization [facility] Address [address] [place] [address] Care Team Providers Care Mechanic Helper Name Role Phone Scarlet Del Cid Primary Care Provider Unavailab le Encounter Details Date Type Department Care Team (Late st Contact Info) Description 09/04/2010 Orders Only [facility] Pediatric Primary Care [address] [phone] Marilee Pennington LPN [address] [place] [address] ADHD (attention deficit hyperactivity disorder) (Primary Dx) Social History Tobacco Use Types [...] disorder with hyperactivity documented in this encounter Care Teams Mechanic Helper Relationship Specialty Start Date End Date Scarlet Del Cid PCP - General 11/17/09 10/18/13 documented as of this encounter
--- OUTSIDE RECORDS SUMMARY | 2024-04-25 16:40 | XMS_ITS | Encounter Summary ---
Author Organization [facility] Address [address] [place] [address] Care Team Providers Care Milling Machine Tender Name Role Phone Scarlet Del Cid Primary Care Provider Unavailab le Reason for Visit * Reason Comments Follow-up Med check Encounter Details Date Type Department Care Team (Latest Contact Info) Description 04/05/2010 11:00 EDT Office Visit [facility] Pediatric Primary Care - [address] [phone] Scarlet Del Cid ADHD (attention deficit hyperactivity disorder) (Primary Dx); Acne; Routine health maintenance Social History Tobacco Use Types Packs/Day Years [...] Sign Reading Time Taken Comments Blood Pressure 116/68 04/05/2010 1048 EDT Pulse - - Temperature - - Respiratory Rate - - Oxygen Saturation - - Inhaled Oxygen Concentration - - Weight 49 kg (108 lb) 04/05/2010 1048 EDT Height 166.8 cm (5' 5.67) 04/05/2010 1048 EDT Body Mass Index 17.61 04/05/2010 1048 EDT Body Mass Index Percentile 7.58% 04/05/2010 104 8 EDT Growth Chart: [facility] (Boys, 2-2 0 Years) documented in this encounter Ordered Prescriptions Prescription Sig Dispensed Refills Start Date End Da te clindamycin (CLEOCIN T) 1 % lotionIndications:Acne Apply topically daily. use thin film on affected area 50 mL 3 04/05/2010 01/21/2012 tretinoin (RETIN-A) 0.1 % creamIndications:Acne Apply topically at bedtime. . 60 g 11 04/05/2010 01/21/2012 amphetamine-dextroampheta mine (ADDERALL XR) 30 mg XR capsuleIndications:ADHD (attention deficit hyperactivity disorder) Take 1 Cap by mouth every morning. 30 Cap 0 04/05/2010 08/14/2010 documented in this encounter Progress Notes * Scarlet Del Cid, PNP - 04/05/2010 1059 EDT Subjective: Patient ID: Vladislav Bear is an 14 y.o. male. Chief Complaint Patient presents with ??? Follow-up Med check HPI ADHD--jose ok at school [facility] psychiatrist has moved out to [facility]. Doing much better at school and at home. Getting school work done. No in therapy at this time as he was discharged and therapist thought there was no need for ongoing intervention. Mother keeps in monthly contact with the school. Smokes 5 cigarettes per day, denies any other substance use. Patient Active Problem List Diagnoses Code ??? ADHD (attention deficit hyperactivity disorder) 314.01M ??? Acne 706.1AQ Past Medical History Diagnosis Date ??? Psychiatric Problem ADHD Current outpatient prescriptions ordered prior to encounter Medication Sig Dispense Refill ??? risperidone (RISPERDAL) 0.25 mg tablet Take 1 Tab by mouth as needed. 30 Tab 1 ??? ATOMOXETINE HCL (STRATTERA ORAL) Take 40 mg by mouth daily. ??? AMPHET ASP/AMPHET/D-AMPHET (ADDERALL ORAL) Take by mouth. ??? clonidine (CATAPRES) 0.2 mg tablet Take 0.2 mg by mouth daily. ??? GUANFACINE HCL (GUANFACINE ORAL) Take 1 mg by mouth daily. No Known Allergies Social History Substance Use Topics ??? Tobacco Use: Never ??? Alcohol Use: No Review of Systems Constitutional: Negative for weight loss. Neurological: Negative for headaches. Psychiatric/Behavioral: Negative for depression and suicidal ideas. The patient is not nervous/anxious. - See HPI Objective: BP 116/68 Ht 166.8 cm (65.67) Wt 48.988 kg (108 lb) Physical Exam Constitutional: He appears well-developed and well-nourished. HENT: Head: Normocephalic. Eyes: Pupils are equal, round, and reactive to light. Neck: Normal range of motion. Neck supple. Cardiovascular: Normal rate and normal heart sounds. Pulmonary/Chest: Effort normal. Skin: Numerous comedones and papules on face. Assessment: Plan: Vladislav was seen today for follow-up. Diagnoses and associated orders for this visit: Adhd (attention deficit hyperactivity disorder) - amphetamine-dextroamphetamine (ADDERALL XR) 30 mg XR capsule; Take 1 Cap by mouth every morning. Acne - tretinoin (RETIN-A) 0.1 % cream; Apply topically at bedtime. . - clindamycin (CLEOCIN T) 1 % lotion; Apply topically daily. use thin film on affected area Routine health maintenance - Flu vaccine greater than or equal to 3yo split IM Will call psychopharm for possible psychiatry follow-up. T.C to Dr. Mckenzie Will refer to Dr. Rodriguez or Dr. Coreas at [place] documented in this encounter Plan of Treatment Not on file documented as of this encounter Visit Diagnoses Diagnosis ADHD (attention deficit hyperactivity disorder)- Primary Attention deficit disorder with hyperactivity Acne Other acne Routine health maintenance Routine general medical examination at a health care facility documented in this encounter Discontinued Medications Medication Sig Discontinue Reason Start Date End Da te guanfacine (TENEX) 1 mg tablet Take 1 mg by mouth 2 times daily. Duplicate Therapy 04/05/2010 documented as of this encounter Orders Immunization/Injection Count Last Ordered Date First Ordered Date FLU VACCINE =>1YO SPLIT IM 1 04/05/2010 documented in this encounter Care Teams Milling Machine Tender Relationship Specialty Start Date End Date Scarlet Del Cid PCP - General 11/17/09 10/18/13 documented as of this encounter
--- OUTSIDE RECORDS SUMMARY | 2024-04-25 16:40 | XMS_ITS | Encounter Summary ---
Author Organization [facility] Address [address] [place] [address] Care Team Providers Care Dental Amalgam Processor Name Role Phone Scarlet Del Cid Primary Care Provider Unavailab le Reason for Visit * Reason Onset Date Comments Medications Refill 09/04/2010 Encounter Details Date Type Department Care Team (Late st Contact Info) Description 09/04/[address] [facility] Primary Care [address] [phone] Marilee Pennington LPN [address] [place] [address] Medications Refill Social History Tobacco Use Types [...] on filedocumented in this encounter Care Teams Dental Amalgam Processor Relationship Specialty Start Date End Date Scarlet Del Cid PCP - General 11/17/09 10/18/13 documented as of this encounter
--- OUTSIDE RECORDS SUMMARY | 2024-04-25 16:40 | XMS_ITS | Encounter Summary ---
Author Organization [facility] Address [address] [place] [address] Care Team Providers Care Occupational Therapy Aides Teacher Name Role Phone Scarlet Del Cid Primary Care Provider Unavailab le Reason for Visit * Reason Onset Date Comments Other 08/13/2010 Encounter Details Date Type Department Care Team (Late st Contact Info) Description 08/13/2010 Telephone [facility] Pediatric Primary Care - [address] [phone] Scarlet Del Cid Other Social History Tobacco [...] encounter Miscellaneous Notes * Telephone Encounter - Chantell Coronel RN - 08/14/2010 1416 EST Consulted Scarlet Del Cid., she will increase dose to 20 * Telephone Encounter - Sarika Victoria - 08/13/2010 1112 EST REFILL RX ADORAL// WILL HELP DESK REPRESENTATIVE ON 08/14/2010 NOW MEDS ARE NOT 30 IA THEY ARE 20 MIL documented in this encounter Plan of Treatment Not on file documented as of this encounter Visit Diagnoses Diagnosis ADHD (attention deficit hyperactivity disorder)- Primary Attention deficit disorder with hyperactivity documented in this encounter Care Teams Occupational Therapy Aides Teacher Relationship Specialty Start Date End Date Scarlet Del Cid PCP - General 11/17/09 10/18/13 documented as of this encounter
--- OUTSIDE RECORDS SUMMARY | 2024-04-25 16:40 | XMS_ITS | Clinical Summary ---
Author Organization [facility] Address [address] [place] [address] Care Team Providers Care Junior Financial Analyst Name Role Phone Unknown, Provider Primary Care [...] Varicella (Chickenpox) vacci ne (VARIVAX) SQ 12/23/2007,11/16/2007 Medical History Medical History Date Comments Psychiatric problem ADHD Social History Tobacco Use Types Packs/Day Years Used Date Smoking Tobacco: Never Alcohol Use Standard Drinks/Week Comments No 0 (1 standard drink = 0.6 oz pur e alcohol) Sex and Gender Information Value Date Recorded Sex Assigned at Not on file Gender Identity Not on file Sexual Orientation Not on file Obstetrics History Last Filed Vital Signs Vital Sign Reading [...] Mass Index - - Plan of Treatment Health Maintenance Due Date Last Done Comments COVID-19 Vaccine (2022-2 4 season) 2023 Hepatitis B Vaccine Completed 10/29/1994, 05/19/1994, 03/08/1994, Additional history exists Hepatitis C Screen Completed 06/10/2023 Procedures Procedure Name Priority Date/Time Associated Diagnosis Comments HCV RNA DETECT QUANT Routine 06/10/2023 10:43 EST from Last 3 Months or Most Recently Relevant to Health Maintenance Results * HCV RNA DETECT QUANT (06/10/2023 10:43 EST) HCV RNA Qualitative Undetected Undetected 06/11/2023 13:36 EST [facility] Blood VENOUS BLOOD / Unknown 06/10/2023 10:43 EST 06/10/2023 17:15 EST Narrative [facility] - 06/11/2023 13:36 EST The quantification range of this assay is 15 IU/mL to 100,000,000 IU/mL. Testing was performed using the Jae HCV test ([employer] with the jae [id number] System. Provider Outr Resulting Lab CHEMISTRY & BLOOD GAS ORDERABLES [facility] [address] [place] [address] from Last 3 Months or Most Recently Relevant to Health Maintenance Care Teams Junior Financial Analyst Relationship Specialty Start Date End Date Unknown, Provider, PCP - General 10/19/13
--- OUTSIDE RECORDS SUMMARY | 2024-04-25 16:40 | XMS_ITS | Encounter Summary ---
Author Organization [facility] Address [address] [place] [address] Care Team Providers Care Boner Meat Name Role Phone Scarlet Del Cid Primary Care Provider Unavailab le Reason for Visit * Reason Onset Date Comments Medication Problem 03/05/2010 Encounter Details Date Type Department Care Team (Late st Contact Info) Description 03/05/2010 Refill [facility] Pediatric Primary Care - [address] [phone] Scarlet Del Cid Medication Problem Social History [...] by mouth as needed. 30 Tab 1 03/07/2010 09/21/2010 documented in this encounter Miscellaneous Notes * Telephone Encounter - Scarlet Del Cid PNP - 03/07/2010 1253 EDT Soraida Orellana no longer living in state. Mother needs refills of Respiradone. Will refill and see theend of Mar to schedule new psychiatric visit. * Telephone Encounter - Scarlet Ceja - 03/05/2010 1549 EDT MOM WOULD LIKE TO SPEAK WITH YOU ABOUT MEDS!!! documented in this encounter Plan of Treatment Not on file documented as of this encounter Visit Diagnoses Diagnosis ADHD (attention deficit hyperactivity disorder)- Primary Attention deficit disorder with hyperactivity documented in this encounter Discontinued Medications Medication Sig Discontinue Reason Start Date End Da te risperidone (RISPERDAL) 0.25 mg tablet Take 0.25 mg by mouth as needed. Reorder 03/07/2010 documented as of this encounter Care Teams Boner Meat Relationship Specialty Start Date End Date Scarlet Del Cid PCP - General 11/17/09 10/18/13 documented as of this encounter
--- OUTSIDE RECORDS SUMMARY | 2024-04-25 16:40 | XMS_ITS | Encounter Summary ---
Author Organization [facility] Address [address] [place] [address] Care Team Providers Care Franchise Business Consultant Name Role Phone Scarlet Del Cid Primary Care Provider Unavailab le Reason for Visit * Reason Onset Date Comments Follow-up 01/22/2012 ER wound infecti on. 7 days with his shipping lead for suture removal and wound check. Encounter Details Date Type Department Care Team (Late st Contact Info) Description 01/22/2012 Telephone [facility] Pediatric Primary Care - [address] [phone] Chantell Coronel, RN Follow-up (ER wound infection. 7 days with his shipping lead for suture removal and wound check.) Social History Tobacco Use Types Packs/Day Years [...] Telephone Encounter - Chantell Coronel RN - 01/24/2012 0850 EDT No Cb x 2 messages left. Letter sent reminding Mother that pt needs sutures out in 7-10 days from ER Visit, documented in this encounter Plan of Treatment Not on file documented as of this encounter Visit Diagnoses Not on filedocumented in this encounter Care Teams Franchise Business Consultant Relationship Specialty Start Date End Date Scarlet Del Cid PCP - General 11/17/09 10/18/13 documented as of this encounter
--- OUTSIDE RECORDS SUMMARY | 2024-04-25 16:40 | XMS_ITS | Encounter Summary ---
Author Organization [facility] Address [address] [place] [address] Care Team Providers Care Front End Java Developer Name Role Phone Scarlet Del Cid Primary Care Provider Unavailab le Reason for Visit * Reason Comments Suture / Staple Removal Encounter Details Date Type Department Care Team (Late st Contact Info) Description 01/30/2012 14:45 EDT Office Visit [facility] Pediatric Primary Care [address] [phone] Scarlet Del Cid Laceration (Primary Dx) Social History Tobacco Use Types [...] Notes * Scarlet Del Cid, PNP - 01/30/20122032 EDT Subjective: Patient ID: Vladislav Bear is an 16 y.o. male. Chief Complaint Patient presents with ??? Suture / Staple Removal HPI Lacerated right foot on 01/16/12. Sutured at [facility] and put on Keflex. Seen here 5 days later with redness and discharge. Seen in ER and 2 sutures removed and received IV Clindamycin and is on pp clinda. Taking pills ok. No further drainage. Still some discomfort. Using crutches. No pain Was told to get boot to wear Disease Management: N/A Patient Active Problem List Diagnoses ??? ADHD (attention deficit hyperactivity disorder) ??? Acne Past Medical History Diagnosis Date ??? Psychiatric problem ADHD Current Outpatient Prescriptions on File Prior to Visit Medication Sig Dispense Refill ??? clindamycin (CLEOCIN) 300 mg capsule Take 1 Cap by mouth 4 times daily for 10 days. 28 Cap 0 No Known Allergies Social History Substance Use Topics ??? Smoking status: Never Smoker ??? Smokeless tobacco: Not on file ??? Alcohol Use: No ROS - See HPI Objective: There were no vitals taken for this visit. Physical Exam Musculoskeletal: Right foot L shaped laceration. Portion of proximal lac slightly open with small amount of moist tissue present.small amount of serous discharge present. Some ecchymosis with slight tenderness. No warmth or erythema. Labs: N/A Assessment and Plan: Vladislav was seen today for suture / staple removal. Diagnoses and associated orders for this visit: Laceration - 3D Boot Sutures removed. May have small piece of suture present. To soak for 10 minutes daily. F/u in 5 days. Return with any increased discharge or pain. Carbider was not used. documented in this encounter Plan of Treatment Not on file documented as of this encounter Visit Diagnoses Diagnosis Laceration- Primary Open wound(s) (multiple) of unspecified site(s), without mention of complication documented in this encounter Orders General Supply Count Last Ordered Date First Or dered Date 3D BOOT 1 01/30/2012 documented in this encounter Care Teams Front End Java Developer Relationship Specialty Start Date End Date Scarlet Del Cid PCP - General 11/17/09 10/18/13 documented as of this encounter
--- OUTSIDE RECORDS SUMMARY | 2024-04-25 16:40 | XMS_ITS | Encounter Summary ---
Author Organization [facility] Address [address] [place] [address] Care Team Providers Care Equipment Service Lead Name Role Phone Scarlet Del Cid Primary Care Provider Unavailab le Reason for Visit * Reason Onset Date Comments Medications Refill 10/08/2010 Encounter Details Date Type Department Care Team (Late st Contact Info) Description 10/08/2010 Refill [facility] Pediatric Primary Care - [address] [phone] Scarlet Del Cid Medications Refill Social History [...] Dispensed Refills Start Date End Da te atomoxetine (STRATTERA) 40 mg capsuleIndications:ADHD (attention deficit hyperactivity disorder) Take 1 Cap by mouth daily. 30 Cap 1 10/08/2010 01/21/2012 documented in this encounter Miscellaneous Notes * Telephone Encounter - Holli Power MD - 10/08/2010 1644 EDT Escribed. Holli Power MD * Telephone Encounter - Gorge, Marilee Santana - 10/08/2010 1636 EDT Last refill 04/05/10. Last med check 04/05/10. * Telephone Encounter - Chantell Goldberg - 10/08/2010 1039 EDT Needs refill on Stratra. Also received phone call from nurse last week, just got message, was out sick. Please call back. [phone] documented in this encounter Plan of Treatment Not on file documented as of this encounter Visit Diagnoses Diagnosis ADHD (attention deficit hyperactivity disorder)- Primary Attention deficit disorder with hyperactivity documented in this encounter Discontinued Medications Medication Sig Discontinue Reason Start Date End Da te ATOMOXETINE HCL (STRATTERA ORAL) Take 40 mg by mouth daily. Reorder 04/05/2010 10/08/2010 documented as of this encounter Care Teams Equipment Service Lead Relationship Specialty Start Date End Date Scarlet Del Cid PCP - General 11/17/09 10/18/13 documented as of this encounter
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
--- OUTSIDE RECORDS SUMMARY | 2024-04-25 16:40 | XMS_ITS | Encounter Summary ---
Author Organization [facility] Address [address] [place] [address] Care Team Providers Care Attraction Worker Name Role Phone Scarlet Del Cid Primary Care Provider Unavailab le Reason for Visit * Reason Comments Drug Screen here with mom for ur ine screen Encounter Details Date Type Department Care Team (Late st Contact Info) Description 11/29/2009 9:15 EDT Office Visit [facility] Pediatric Primary Care - [address] [phone] Scarlet Del Cid Behavior disorder (Primary Dx) Social History Tobacco Use Types [...] Notes * Scarlet Del Cid, PNP - 11/29/2009 1123 EDT Subjective: Patient ID: Vladislav Bear is an 13 y.o. male. Chief Complaint Patient presents with ??? Drug Screen here with mom for urine screen HPI Comments: Drug Screen--Pranay's psychiatric nurse practitioner has been concerned about erraticbehavior and appoximately 2 months ago asked that we do a urine drug screen. Due to lack of appropriate phone numbers, they are coming today. According to Sol, Vladislav had a significant drop in his school performance as well as his behavior. They feel that things are more stable now and schoolwork has improved. Vladislav denies any substance use. Patient Active Problem List Diagnoses Code ??? ADHD (attention deficit hyperactivity disorder) 314.01M ??? Acne 706.1AQ Past Medical History Diagnosis Date ??? Psychiatric Problem ADHD Current outpatient prescriptions prior to encounter Medication Sig Dispense Refill ??? ATOMOXETINE HCL (STRATTERA ORAL) Take by mouth. ??? risperidone (RISPERDAL) 0.25 mg tablet Take 0.25 mg by mouth as needed. ??? AMPHET ASP/AMPHET/D-AMPHET (ADDERALL ORAL) Take by mouth. ??? clonidine (CATAPRES) 0.2 mg tablet Take 0.2 mg by mouth daily. ??? GUANFACINE HCL (GUANFACINE ORAL) Take 1 mg by mouth. ??? guanfacine (TENEX) 1 mg tablet Take 1 mg by mouth 2 times daily. No Known Allergies Social History Substance Use Topics ??? Tobacco Use: Never ??? Alcohol Use: No ROS - See HPI Objective: There were no vitals taken for this visit. Physical Exam Assessment: ADHD Erratic behavior Plan: Vladislav was seen today for drug screen. Diagnoses and associated orders for this visit: - Behavior disorder - Drug screen 6 documented in this encounter Plan of Treatment Not on file documented as of this encounter Procedures Procedure Name Priority Date/Time Associated Diagnosis Comments AMPHETAMINES CONFIRMATION PANEL, U Routine 11/29/2009 9:27 EDT DRUG SCREEN 6 Routine 11/29/2009 9:27 EDT Behavior disorder documented in this encounter Results * AMPHETAMINES, URINE (11/29/2009 9:27 EDT) [facility] GC/MS Confirmation, Amphetamine Positive [facility] Amphetamine 6703Reference range: Cutoff: <50 Unit: ng/mL [facility] Methamphetamine Negative Reference range: Cutoff: <50 Unit: ng/mL [facility] MDMA (Ecstasy) Negative Reference range: Cutoff: <50 Unit: ng/mL [facility] MDA (Ecstasy Metabolite) Negative Reference range: Cutoff: <50 Unit: ng/mL [facility] Phentermine Negative Reference range: Cutoff: <500 Unit: ng/mL This report is intended for use in clinical monitoring and ? management of patients. It is not intended for use in ? employment-rela buck drug testing. ? Performed by: [facility] [place], [address], ? [place] [address], Lagging Machine Operator: Cheyanne Macias, Ph.D. ? [facility] 11/29/2009 9:27 EDT 11/29/2009 20:34 EDT Scarlet [facility] UNIT COLLECT ORDERABLES [facility] [address] [place] [address] * DRUG SCREEN 6 (11/29/2009 9:27 EDT) Amphetamine Screen, Urine Presumptive positive, confirmation to follow. Interpret with caution. Suitable for medical purposes only. Will not detect all drugs within class. Cutoff = 1000 ng/ml [facility] Barbiturate Screen, Urine Negative screen. Confirmation testing available upon request. Suitable for medical purposes only. Will not detect all drugs within class. Cutoff = 300 ng/ml [facility] Benzodiazepine Screen, Urine Negative screen. Confirmation testing available upon request. Suitable for medical purposes only. Will not detect all drugs within class. Cutoff = 300 ng/ml [facility] Cannabinoid Scrn, Ur Presumptive positive, interpret with caution. Confirmation testing available upon request. Suitable for medical purposes only. Will not detect all drugs within class. Cutoff = 50 ng/ml [facility] Cocaine Metabolites, Ur Negative screen. Confirmation testing available upon request. Suitable for medical purposes only. Will not detect all drugs within class. Cutoff = 300 ng/ml [facility] Opiate Scrn, Ur Negative screen. Confirmation testing available upon request. Suitable for medical purposes only. Will not detect all drugs within class. Cutoff = 300 ng/ml Does not detect oxycodone, oxycontin or methadone. [facility] Urine specimen (specimen) 11/29/2009 9:27 EDT 11/29/2009 20:34 EDT Scarlet Del Cid URINALYSIS ORDERABLE S [facility] [address] [place] [address] documented in this encounter Visit Diagnoses Diagnosis Behavior disorder- Primary Unspecified disturbance of conduct documented in this encounter Discontinued Medications Medication Sig Discontinue Reason Start Date End Da te risperidone (RISPERDAL) 0.25 mg tablet Take 0.25 mg by mouth 2 times daily. Error 11/29/2009 cephALEXin (KEFLEX) 500 mg capsule Take 1 Cap by mouth every 6 hours. 02/15/2009 11/29/2009 documented as of this encounter Care Teams Attraction Worker Relationship Specialty Start Date End Date Scarlet Del Cid PCP - General 11/17/09 10/18/13 documented as of this encounter
--- OUTSIDE RECORDS SUMMARY | 2024-04-25 16:40 | XMS_ITS | Encounter Summary ---
Author Organization [facility] Address [address] [place] [address] Care Team Providers Care Project Design Engineer Name Role Phone Scarlet Del Cid Primary Care Provider Unavailab le Reason for Visit * Reason Onset Date Comments Medications Refill 09/14/2010 Encounter Details Date Type Department Care Team (Late st Contact Info) Description 09/14/2010 Refill [facility] Pediatric Primary Care - [address] [phone] Scarlet Del Cid Medications Refill Social History [...] mouth daily with breakfast. 30 Cap 0 09/14/2010 10/17/2010 documented in this encounter Miscellaneous Notes * Telephone Encounter - Manuel Walter MD - 09/14/2010 1130 EST Manuel Walter MD 09/14/2010 11:30 * Telephone Encounter - Marilee Pennington - 09/14/2010 1117 EST Last refill 08/14/10. Last med check 04/05/10. Needs med check appointment scheduled. * Telephone Encounter - Scarlet Ceja - 09/14/2010 0954 EST amphetamine-dextroamphetamine (ADDERALL XR) 20 mg XR capsule [[id number]] hand touch up painter documented in this encounter Plan of Treatment Not on file documented as of this encounter Visit Diagnoses Diagnosis ADHD (attention deficit hyperactivity disorder)- Primary Attention deficit disorder with hyperactivity documented in this encounter Discontinued Medications Medication Sig Discontinue Reason Start Date End Da te amphetamine-dextroampheta mine (ADDERALL XR) 20 mg XR capsule Take 1 Cap by mouth every morning. Reorder 08/14/2010 09/14/2010 documented as of this encounter Care Teams Project Design Engineer Relationship Specialty Start Date End Date Scarlet Del Cid PCP - General 11/17/09 10/18/13 documented as of this encounter
--- OUTSIDE RECORDS SUMMARY | 2024-04-25 16:40 | XMS_ITS | Encounter Summary ---
Author Organization [facility] Address [address] [place] [address] Care Team Providers Care Crane Oiler Name Role Phone Unknown, Provider Primary Care Provider Reason for Visit * Reason Onset Date Comments Advice Only 10/06/2014 Encounter Details Date Type Department Care Team ([facility] st Contact Info) Description 10/06/2014 Telephone [facility] Pediatric Primary Care - [address] [phone] Karen Waggoner MD Advice Only Social History Tobacco Use Types Packs/Day Years [...] Telephone Encounter - Dolores Sheppard RN - 10/12/2014 0997 EDT Call to Uncle (guardian). He states that Vladislav does not live there anymore, and they do not have a number for him. He was there yesterday, however, and was informed that he does not have an appointment with [facility] on 10/13/2014. He knows to seek care at [facility], e.g. * Telephone Encounter - Karen Waggoner MD - 10/11/2014 6077 EDT Vladislav needs to know that the appointment made at [facility] was an ERROR, as we can not serve his current needs. He needs to reschedule the appointment with an adult porvider, at [facility]. We cannot see him any longer at [facility]. Karen Waggoner MD * Telephone Encounter - Karen Waggoner MD - 10/06/2014 1728 EDT I request more information so this patient can be better served. Karen Waggoner MD * Telephone Encounter - Karen Waggoner MD - 10/06/2014 0818 EDT documented in this encounter Plan of Treatment Not on file documented as of this encounter Visit Diagnoses Not on filedocumented in this encounter Care Teams Crane Oiler Relationship Specialty Start Date End Date Unknown, Provider, PCP - General 10/19/13 documented as of this encounter
--- OUTSIDE RECORDS SUMMARY | 2024-04-25 16:40 | XMS_ITS | Encounter Summary ---
Author Organization [facility] Address [address] [place] [address] Care Team Providers Care Water Team Leader Name Role Phone Scarlet Del Cid Primary Care Provider Unavailab le Encounter Details Date Type Department Care Team (Late st Contact Info) Description 12/05/2009 Documentation Visit [facility] Pediatric Primary Care - [address] [phone] Scarlet Del Cid Social History Tobacco Use Types Packs/Day Years Used Date Smoking Tobacco: Never Alcohol Use Standard Drinks/Week Comments No 0 (1 standard drink = 0.6 oz pur e alcohol) Sex and Gender Information Value Date Recorded Sex Assigned at Not on file Gender Identity Not on file Sexual Orientation Not on file documented as of this encounter Progress Notes * Scarlet Del Cid PNP - 12/05/2009 0820 EDT Results sent to Soraida Orellana, PHD, PE ELECTRICAL ENGINEER. She will folllow up results. documented in this encounter Plan of Treatment Not on file documented as of this encounter Visit Diagnoses Not on filedocumented in this encounter Care Teams Water Team Leader Relationship Specialty Start Date End Date Scarlet Del Cid PCP - General 11/17/09 10/18/13 documented as of this encounter
--- OUTSIDE RECORDS SUMMARY | 2024-04-25 16:40 | XMS_ITS | Encounter Summary ---
Author Organization [facility] Address [address] [place] [address] Care Team Providers Care Matrix Supervisor Name Role Phone Unknown, Provider Primary Care Provider Encounter Details Date Type Department Care Team (Late st Contact Info) Description 06/10/2023 Lab Requisition [facility] Pathology & Laboratory Medicine - [address] [address] Outr Resulting Lab, Provider Social History Tobacco [...] Procedure Name Priority Date/Time Associated Diagnosis Comments CHLAMYDIA/N. GONORRHOEAE AMPLIFIED NUCLEIC ACID Routine 06/10/2023 10:18 EST documented in this encounter Results * CHLAMYDIA/N. GONORRHOEAE AMPLIFIED RNA (06/10/2023 10:18 EST) Neisseria gonorrhoeae Result Negative Negative 06/11/2023 13:15 EST [facility] Chlamydia trachomatis Result Negative Negative 06/11/2023 13:15 EST [facility] Urine URINE / Unknown 06/10/2023 1 0:18 EST 06/10/2023 22:52 EST Provider Outr Resulting Lab MICROBIOLOGY - GENERAL ORDERABLES [facility] [address] [place] [address] documented in this encounter Visit Diagnoses Not on filedocumented in this encounter Care Teams Matrix Supervisor Relationship Specialty Start Date End Date Unknown, Provider, PCP - General 10/19/13 documented as of this encounter
--- OUTSIDE RECORDS SUMMARY | 2024-04-25 16:40 | XMS_ITS | Encounter Summary ---
Author Organization [facility] Address [address] [place] [address] Care Team Providers Care Collarette Separator Name Role Phone Scarlet Del Cid Primary Care Provider Unavailab le Encounter Details Date Type Department Care Team (Late st Contact Info) Description 08/14/2010 Orders Only [facility] Pediatric Primary Care - [address] [phone] Scarlet Del Cid ADHD (attention deficit hyperactivity disorder) (Primary Dx) [...] Dispensed Refills Start Date End Da te amphetamine-dextroamphetam ine (ADDERALL XR) 20 mg XR capsule Take 1 Cap by mouth every morning. 30 Cap 0 08/14/2010 09/14/2010 documented in this encounter Plan of Treatment Not on file documented as of this encounter Visit Diagnoses Diagnosis ADHD (attention deficit hyperactivity disorder)- Primary Attention deficit disorder with hyperactivity documented in this encounter Discontinued Medications Medication Sig Discontinue Reason Start Date End Da te AMPHET ASP/AMPHET/D-AMPHET (ADDERALL ORAL) Take by mouth. 08/14/2010 amphetamine-dextroamphetam ine (ADDERALL XR) 30 mg XR capsuleIndications:ADHD (attention deficit hyperactivity disorder) Take 1 Cap by mouth every morning. 04/05/2010 08/14/2010 documented as of this encounter Care Teams Collarette Separator Relationship Specialty Start Date End Date Scarlet Del Cid PCP - General 11/17/09 10/18/13 documented as of this encounter
--- OUTSIDE RECORDS SUMMARY | 2024-04-25 16:40 | XMS_ITS | Encounter Summary ---
Author Organization [facility] Address [address] [place] [address] Care Team Providers Care Hand Picker Name Role Phone Scarlet Del Cid Primary Care Provider Unavailab le Reason for Visit * Reason Onset Date Comments Follow-up 05/08/2010 WICC nose injury Encounter Details Date Type Department Care Team ([facility] st Contact Info) Description 05/08/[address] [facility] Pediatric Primary Care - [address] [phone] Chantell Coronel RN Follow-up (WICC nose injury) Social History Tobacco Use Types Packs/Day Years Used Date Smoking Tobacco: Never Alcohol Use Standard Drinks/Week Comments No 0 (1 standard drink = 0.6 oz pur e alcohol) Sex and Gender Information Value Date Recorded Sex Assigned at Not on file Gender Identity Not on file Sexual Orientation Not on file documented as of this encounter Miscellaneous Notes * Telephone Encounter - Vladislav Montilla RN - 05/10/2010 1129 EDT T/c with family - no questions or concerns at this time. All s/sx have resolved To call back with any increases s/sx, new s/sx or with questions or concerns. Dad ok with plan. documented in this encounter Plan of Treatment Not on file documented as of this encounter Visit Diagnoses Not on filedocumented in this encounter Care Teams Hand Picker Relationship Specialty Start Date End Date Scarlet Del Cid PCP - General 11/17/09 10/18/13 documented as of this encounter
--- OUTSIDE RECORDS SUMMARY | 2024-04-25 16:40 | XMS_ITS | Encounter Summary ---
Author Organization [facility] Address [address] [place] [address] Care Team Providers Care Software Solutions Architect Name Role Phone Unknown, Provider Primary Care Provider Encounter Details Date Type Department Care Team (Late st Contact Info) Description 06/11/2023 Lab Requisition [facility] Pathology & Laboratory Medicine - [address] [address] Outr Resulting Lab, Provider Social History Tobacco [...] Procedure Name Priority Date/Time Associated Diagnosis Comments QUANTIFERON MITOGEN (PERFORMABLE) Today 06/10/2023 10:43 EST QUANTIFERON TB2 (PERFORMABLE) Today 06/10/2023 10:43 EST QUANTIFERON TB1 (PERFORMABLE) Today 06/10/2023 10:43 EST QUANTIFERON NIL (PERFORMABLE) Today 06/10/2023 10:43 EST QUANTIFERON INTERPRETATION (PERFORMABLE) Today 06/10/2023 10:43 EST QUANTIFERON TB GOLD PLUS Routine 06/10/2023 10:43 EST documented in this encounter Results * QUANTIFERON INTERPRETATION (PERFORMABLE) (06/10/2023 10:43 EST) Quantiferon Interpretation Negative Negative 06/12/2023 12:[address] [facility] Comment:No interferon-gamma response to M. tuberculosis antigens was detected. ??Infection with M. tuberculosis is unlikely. A single negative result does not exclude infection with M. tuberculosis. ??In patients at high risk for M. tuberculosis infection, a second test should be considered. TB1 Ag minus Nil 0.01 IU/ml 06/12/20 23 12:[address] [facility] TB2 Ag minus Nil 0.00 IU/mL 06/12/20 23 12:[address] [facility] Blood VENOUS BLOOD / Unknown 06/10/2023 10:43 EST 06/12/2023 11:[address] [facility] - 06/12/2023 12:19 EST Results were obtained with the [employer] QuantiFERON-TB Gold Plus CLIA. New platform in use 03/14/2021 Provider Outr Resulting Lab IMMUNOLOGY A ND SEROLOGY ORDERABLES Performing Organization Address City/[facility]/[place] Co de Phone Number [facility] [address] [place] [address] * QUANTIFERON MITOGEN (PERFORMABLE) (06/10/2023 10:43 EST) Blood VENOUS BLOOD / Unknown 06/10/2023 10:43 EST 06/11/2023 16:46 EST Provider Outr Resulting Lab IMMUNOLOGY A ND SEROLOGY ORDERABLES Performing Organization Address City/[facility]/ZIP Co de Phone Number [facility] [address] [place] [address] * QUANTIFERON TB2 (PERFORMABLE) (06/10/2023 10:43 EST) Blood VENOUS BLOOD / Unknown 06/10/2023 10:43 EST 06/11/2023 16:46 EST Provider Outr Resulting Lab IMMUNOLOGY A ND SEROLOGY ORDERABLES Performing Organization Address [facility]/[place] Co de Phone Number [facility] [address] [place] [address] * QUANTIFERON TB1 (PERFORMABLE) (06/10/2023 10:43 EST) Blood VENOUS BLOOD / Unknown 06/10/2023 10:43 EST 06/11/2023 16:46 EST Provider Outr Resulting Lab IMMUNOLOGY A ND SEROLOGY ORDERABLES Performing Organization Address [facility]/[place] Co de Phone Number [facility] [address] [place] [address] * QUANTIFERON NIL (PERFORMABLE) (06/10/2023 10:43 EST) Blood VENOUS BLOOD / Unknown 06/10/2023 10:43 EST 06/11/2023 16:46 EST Provider Outr Resulting Lab IMMUNOLOGY A ND SEROLOGY ORDERABLES Performing Organization Address [facility]/[place] Co de Phone Number [facility] [address] [place] [address] documented in this encounter Visit Diagnoses Not on filedocumented in this encounter Care Teams Software Solutions Architect Relationship Specialty Start Date End Date Unknown, Provider, PCP - General 10/19/13 documented as of this encounter
--- OUTSIDE RECORDS SUMMARY | 2024-04-25 16:41 | XMS_ITS | Encounter Summary ---
Author Organization [facility] Address [address] [place] [address] Care Team Providers Care Search Engine Optimization Manager Name Role Phone Unknown, Provider Primary Care Provider [phone] Encounter Details Date Type Department Care Team (Late st Contact Info) Description 09/07/2009 Abstract Used for ABSTRACTING Data [phone] Unknown, Provider, Social History Tobacco Use Types Packs/Day Years [...] on filedocumented in this encounter Care Teams Search Engine Optimization Manager Relationship Specialty Start Date End Date Unknown, Provider, PCP - General 03/03/09 11/16/09 documented as of this encounter
--- OUTSIDE RECORDS SUMMARY | 2024-04-25 16:41 | XMS_ITS | Encounter Summary ---
Author Organization [facility] Address [address] [place] [address] Care Team Providers Care Avaya Engineer Name Role Phone Unavailable Primary Care Provider Unavailabl e Encounter Details Date Type Department Care Team (Late st Contact Info) Description 12/22/2007 12:57 EDT Hospital Encounter [facility] [address] [place], [place] [phone] Unknown, Provider, Social History Tobacco Use Types [...]
--- OUTSIDE RECORDS SUMMARY | 2024-04-25 16:41 | XMS_ITS | Encounter Summary ---
Author Organization [facility] Address [address] [place] [address] Care Team Providers Care Human Projectile Name Role Phone Unavailable Primary Care Provider Unavailabl e Encounter Details Date Type Department Care Team (Latest Contact Info) Description 01/05/2008 13:10 EDT Hospital Encounter [facility] [address] [place] [address] Igor Nogueira MD [address] [place] [phone] Discharge Disposition: Auto Discharge Social History Tobacco Use Types Packs/Day Years Used Date Smoking Tobacco: Never Assessed Sex and Gender Information Value Date Recorded Sex Assigned at Not on file Gender Identity Not on file Sexual Orientation Not on file documented as of this encounter Discharge Disposition Disposition Code Departure Means Destination Auto Discharge documented in this encounter Plan of Treatment Not on file documented as of this encounter Procedures Procedure Name Priority Date/Time Associated Diagnosis Comments KNEE 4 OR MORE VIEWS 01/05/2008 13:37 EDT documented in this encounter Results * KNEE 4 OR MORE VIEWS (01/05/2008 13:37 EDT) Anatomical Region Laterality Modality Other 01/05/2008 13:3 7 EDT Narrative 12/18/2008 11:23 EDT proximal right tibia fracture assess healing KNEE 4 OR MORE VIEWS ??Jan 05, 2008 1:37:00 PM Clinical History: proximal right tibia fracture assess healing Comparison: 12/13/2007. Findings: 4 views of the right knee again demonstrate the nondisplaced incomplete fracture of the medial aspect of the proximal tibial metaphysis with interval development of sclerotic changes in the bone. Alignment is near anatomic and unchanged from prior. Impression: ??interval but incomplete healing of the proximal tibial metaphyseal fracture. I have personally reviewed the images and the above interpretation and agree with the findings. Procedure Note Gali Blackburn MD / Nito Hernandez MD - 12/18/2008 proximal right tibia fracture assess healing KNEE 4 OR MORE VIEWS Jan 05, 2008 1:37:00 PM Clinical History: proximal right tibia fracture assess healing Comparison: 12/13/2007. Findings: 4 views of the right knee again demonstrate the nondisplaced incomplete fracture of the medial aspect of the proximal tibial metaphysis with interval development of sclerotic changes in the bone. Alignment is near anatomic and unchanged from prior. Impression: interval but incomplete healing of the proximal tibial metaphyseal fracture. I have personally reviewed the images and the above interpretation and agree with the findings. Igor Nogueira MD IMG DIAGNOSTIC MALIK GING ORDERABLES documented in this encounter Visit Diagnoses Not on filedocumented in this encounter
--- OUTSIDE RECORDS SUMMARY | 2024-04-25 16:41 | XMS_ITS | Encounter Summary ---
Author Organization [facility] Address [address] [place] [address] Care Team Providers Care Hydraulic Corrugating Machine Operator Name Role Phone Unavailable Primary Care Provider Unavailabl e Encounter Details Date Type Department Care Team (Late st Contact Info) Description 03/08/2000 14:28 EDT Hospital Encounter [facility] [address] [place] [address] Kristina Torres MD [address] [address] Unknown, ProviderMD Social History Tobacco Use Types Packs/Day Years [...] Procedure Name Priority Date/Time Associated Diagnosis Comments COMPLETE BLOOD COUNT Routine 03/08/2000 11:48 EDT HEPATIC FUNCTION PANEL (ALB,ALK PHOS,ALT,AST,DBIL,T OT HEATHER,TOT PROT) Routine 03/08/2000 11:48 EDT documented in this encounter Results * LIVER FUNCTION TESTS (03/08/2000 11:48 EDT) Albumin 4.4 3.5 - 5.2 g/dl [facility] Total Protein 7.1 5.9 - 7.8 g/dl [facility] Total Alkaline Phosphatase 238 150 - 350 U/L [facility] ALT 22 10 - 25 U/L [facility] AST 33 23 - 58 U/L [facility] Unconjugated Bilirubin 0.5 0.1 - 1.1 mg/dl [facility] Conjugated Bilirubin 0.0 0.0 - 0.3 mg/dl [facility] Bilirubin, Total 0.7 mg/dl [facility] 03/08/2000 11:4 8 EDT 03/08/2000 11:51 EDT Kristina Torres MD CHEMISTRY & BLOOD GA S ORDERABLES Performing Organization Address City/[facility] Co de Phone Number [facility] [address] [place] [address] * HEMAGRAM (03/08/2000 11:48 EDT) WBC 6.45 4.5 - 13.5 K/cmm [facility] RBC 4.51 4.00 - 6.20 M/cmm [facility] Hemoglobin 13.8 11.5 - 15.5 gm/dl [facility] HCT 40.3 35.0 - 45.0 % [facility] MCV 89 77 - 95 fl [facility] MCH 30.7 pg [facility] MCHC 34.3 gm/dl [facility] PLT 225 156 - 312 K/cmm [facility] RDW-CV 12.0 % [facility] 03/08/2000 11:4 8 EDT 03/08/2000 11:51 EDT Kristina Torres MD HEMATOLOGY & PF4 ORD ERABLES Performing Organization Address City/[facility] Co de Phone Number [facility] [address] [place] [address] documented in this encounter Visit Diagnoses Not on filedocumented in this encounter
--- OUTSIDE RECORDS SUMMARY | 2024-04-25 16:41 | XMS_ITS | Encounter Summary ---
Author Organization [facility] Address [address] [place] [address] Care Team Providers Care Aircraft Cleaning Supervisor Name Role Phone Unknown, Provider Primary Care Provider Scarlet Del Cid Primary Care Provider Unavailab le Encounter Details Date Type Department Care Team (Late st Contact Info) Description 12/22/2007 Before PRISM Converted Visit ([facility]) [facility] [address] [place] [address] Igor Nogueira MD [address] [place] [phone] Social History Tobacco Use Types Packs/Day Years Used Date Smoking Tobacco: Never Assessed Sex and Gender Information Value Date Recorded Sex Assigned at Not on file Gender Identity Not on file Sexual Orientation Not on file documented as of this encounter Plan of Treatment Not on file documented as of this encounter Visit Diagnoses * Evaluation - Igor Nogueira MD - 04/07/2009 1035 EDT Sports Medicine and Orthopaedic Trauma Department [facility] [address] [place] [phone] NEW PATIENT EVALUATION - 12/22/2007 PROBLEM Sudden-onset right knee pain. MARGARITA Loomis is a 11-year-old male who presents with his father today, complaining of 10-day history of sudden onset right knee pain that occurred after a twisting- type injury. He was jumping on a trampoline and jumped to the ground. His knee was locked straight, and he noticed some extreme pain in the knee area. He was unable to continue walking, had some swelling below the knee itself. He was evaluated in the emergency room with plain films. The plain films are available for our review today. He was diagnosed with partial right metaphyseal tibial fracture and placed in a plaster posterior splint. His pain is improved with the immobilization. He has been resting and elevating to control his pain. His pain now is 0/10, but at its most severe is 7/10. The pain localizes to the medial aspect of the proximal tibia. PAST MEDICAL HISTORY Pertinent for ADHD. PAST SURGICAL HISTORY None. MEDICATIONS Adderall 30 mg p.o. in the morning, Strattera 40 mg p.o. in the morning, Risperdal 0.25 mg in the evening, and clonidine 0.2 mg in the evening. SOCIAL HISTORY He is a nonsmoker and nondrinker. REVIEW OF SYSTEMS A 12-system comprehensive review of systems is documented in the patients chart, all of which is negative. OBJECTIVE He is 5 feet 2 inches tall and weighs 95 pounds. General: Awake, alert, NAD, and pleasant. A and Ox3. Focused examination of the rightleg reveals a plaster full leg splint intact. This was removed. He does have some ecchymosis to the medial aspect of the proximal tibia. No effusion and no erythema.On palpation, there is tenderness to the proximal medial tibia. No tenderness over the medial and la teral joint lines. He has range of motion from 0 to 110 degrees of flexion. Stability testing and other tests were not performed secondary to his injury. DIAGNOSTIC DATA Plain films were independently reviewed by me, and the images were discussed with the patient including views of the right knee AP, lateral, and obliques that demonstrate an incomplete fracture of the proximal tibial metaphysis with buckling of the cortex. ASSESSMENT Nondisplaced incomplete fracture of the medial aspect of the proximal tibial metaphysis on the right leg. PLAN Patients diagnosis and treatment plan were reviewed with the patient and the patients father. We will remove the plaster splint and place him in a locked knee brace. He will be locked at 20 degrees flexion. He should be nonweightbearing with crutches. He is able to take the brace off for bathing and very gentle activity in the pool. I will see him back in two weeks, and we will obtain repeat plain films of the right knee including an AP, lateral, and oblique views. I will hope to transition himto increased amounts of flexion at our next visit and hopefully after four weeks from now, we can transition him out of his splint altogether. The patient and the patientfather verbalize understanding of the diagnosis and agree with the treatment plan. All of their questions were answered to their satisfaction today. Signed by Igor Nogueira MD 01/05/2008 12:27 Igor Nogueira MD - Igor Nogueira MD - STN Job ID: [id number] Doc ID: [id number] cc: Montrell Lopez MD documented in this encounter Care Teams Aircraft Cleaning Supervisor Relationship Specialty Start Date End Date Unknown, ProviderMD PCP - General 03/03/09 11/16/09 Scarlet Del Cid PCP - General 02/15/09 03/02/09 documented as of this encounter
--- OUTSIDE RECORDS SUMMARY | 2024-04-25 16:41 | XMS_ITS | Encounter Summary ---
Author Organization [facility] Address [address] [place] [address] Care Team Providers Care Observation Nurse Name Role Phone Unavailable Primary Care Provider Unavailabl e Encounter Details Date Type Department Care Team (Late st Contact Info) Description 02/16/2008 11:47 EDT Hospital Encounter [facility] [address] [place] [address] Unknown, Provider, Social History Tobacco Use Types [...]
--- OUTSIDE RECORDS SUMMARY | 2024-04-25 16:41 | XMS_ITS | Encounter Summary ---
Author Organization [facility] Address [address] [place] [address] Care Team Providers Care Truck Loader Name Role Phone Unknown, Provider Primary Care Provider [phone] Encounter Details Date Type Department Care Team (Late st Contact Info) Description 09/04/2009 Abstract Used for ABSTRACTING Data [phone] Unknown, Provider, ADHD (attention deficit hyperactivity disorder); Acne Social History Tobacco Use Types Packs/Day Years [...] hyperactivity disorder) Attention deficit disorder with hyperactivity Acne Other acne documented in this encounter Historical Medications * This list may reflect changes made after this encounter. Medication Sig Dispensed Refills Start Date End Date risperidone (RISPERDAL) 0.25 mg tablet Take 0.25 mg by mouth as needed. 03/07/2010 guanfacine (TENEX) 1 mg tablet Take 1 mg by mouth 2 times daily. 04/05/2010 ATOMOXETINE HCL (STRATTERA ORAL) Take 40 mg by mouth daily. 04/05/2010 10/08/2010 added in this encounter Care Teams Truck Loader Relationship Specialty Start Date End Date Unknown, ProviderMD PCP - General 03/03/09 11/16/09 documented as of this encounter
--- OUTSIDE RECORDS SUMMARY | 2024-04-25 16:41 | XMS_ITS | Encounter Summary ---
Author Organization [facility] Address [address] [place] [address] Care Team Providers Care Cyber Analyst Name Role Phone Unavailable Primary Care Provider Unavailabl e Encounter Details Date Type Department Care Team (Late st Contact Info) Description 12/23/2007 9:56 EDT Hospital Encounter [address] [address] Unknown, Provider, Social History Tobacco Use Types [...]
--- OUTSIDE RECORDS SUMMARY | 2024-04-25 16:41 | XMS_ITS | Encounter Summary ---
Author Organization [facility] Address [address] [place] [address] Care Team Providers Care Senior Software Project Manager Name Role Phone Unavailable Primary Care Provider Unavailabl e Encounter Details Date Type Department Care Team (Late st Contact Info) Description 10/07/2007 13:47 EDT Hospital Encounter [address] [address] Unknown, MD Antoinette Manuel Walter MD [address] [place] [address] [address] [place] [address] Social History Tobacco Use Types Packs/Day Years [...]
--- OUTSIDE RECORDS SUMMARY | 2024-04-25 16:41 | XMS_ITS | Encounter Summary ---
Author Organization [facility] Address [address] [place] [address] Care Team Providers Care Customs Appraiser Name Role Phone Unavailable Primary Care Provider Unavailabl e Encounter Details Date Type Department Care Team (Late st Contact Info) Description 10/09/2000 19:13 EDT Hospital Encounter [facility] - Other [address] [place] [address] Kristina Torres MD [address] [address] Unknown, ProviderMD Social History Tobacco Use Types [...]
--- OUTSIDE RECORDS SUMMARY | 2024-04-25 16:41 | XMS_ITS | Encounter Summary ---
Author Organization [facility] Address [address] [place] [address] Care Team Providers Care Sample Display Preparer Name Role Phone Unavailable Primary Care Provider Unavailabl e Encounter Details Date Type Department Care Team (Latest Contact Info) Description 10/05/2000 9:44 EDT - 10/05/2000 11:59 EDT Hospital Encounter [facility] Emergency Department - [address] [phone] Emergency, Default, MD Discharge Disposition: Home or Self Care Social History Tobacco Use Types Packs/Day Years Used Date Smoking Tobacco: Never Assessed Sex and Gender Information Value Date Recorded Sex Assigned at Not on file Gender Identity Not on file Sexual Orientation Not on file documented as of this encounter Discharge Disposition Disposition Code Departure Means Destination Home or Self Care documented in this encounter Plan of Treatment Not on file documented as of this encounter Procedures Procedure Name Priority Date/Time Associated Diagnosis Comments AMPHETAMINES CONFIRMATION PANEL, U Routine 10/09/2000 9:30 EDT AMPHETAMINE SCREEN, URINE Routine 10/09/2000 9:30 EDT documented in this encounter Results * AMPHETAMINE SCREEN (10/09/2000 9:30 EDT) Amphetamine Screen, Urine Presumptive positive, confirmation to follow. Interpret with caution. Suitable for medical purposes only. Will not detect all drugs within class. Cutoff = 1000 ng/ml [facility] 10/09/2000 9:30 EDT 10/09/2000 21:02 EDT Kristina Torres MD GEN LAB UNIT COLLECT ORDERABLES [facility] [address] [place] [address] * AMPHETAMINES, URINE (10/09/2000 9:30 EDT) Immunoassay Screen Positive ??(Note) -- EXPECTED VALUES -- ? Negative ? [facility] Amphetamines 9850Unit: ng/mL ??(Note) -- EXPECTED VALUES -- ? (Ref Range) 500 (cutoff concentratio n) ? [facility] Methamphetamine Negative by GC/MS Unit: ng/mL ??(Note) -- EXPECTED VALUES -- ? (Ref Range) 500 (cutoff concentratio n) ? [facility] Lab Control Number [id number] ?? [facility] 10/09/2000 9:30 EDT 10/09/2000 21:02 EDT Kristina Torres MD GEN LAB UNIT COLLECT ORDERABLES [facility] [address] [place] [address] documented in this encounter Visit Diagnoses Not on filedocumented in this encounter
--- OUTSIDE RECORDS SUMMARY | 2024-04-25 16:41 | XMS_ITS | Encounter Summary ---
Author Organization [facility] Address [address] [place] [address] Care Team Providers Care Manufacturer Representative Name Role Phone Unknown, Provider Primary Care Provider Scarlet Del Cid Primary Care Provider Unavailab le Encounter Details Date Type Department Care Team (Late st Contact Info) Description 09/23/2003 Office Visit [facility] - Maple conversion [address] [place] [address] Mark Ruiz, MERON [address] [phone] Social History Tobacco Use Types Packs/Day Years Used Date Smoking Tobacco: Never Assessed Sex and Gender Information Value Date Recorded Sex Assigned at Not on file Gender Identity Not on file Sexual Orientation Not on file documented as of this encounter Progress Notes * Mark Ruiz - 09/08/2009 0918 EST Emergency Department ??? Physician Summary Registration Date/Time 09/23/2003 8:58 Time Seen (10:46 ). Arrived- Police present. Historian- patient and care-taker. HISTORY OF PRESENT ILLNESS Chief Complaint: ADHD, ran away from Foster Home This started today and is still present. (Pt. currently living in [facility] temporarily until he is transfered to [facility]. Per social sciences chair and dev technical mgr, was to be in home for 5-6 days until bed opened up. At this time the bed has not opened. dev technical mgr states that child has become disturbance to the 4 other foster children currently living in the house. This morning the pt. convinced another child living in the Foster Home, age [age], to run away this morning. dev technical mgr states child had been talking about and planning to run away for the past 3-4 days. Waste Water Operator states that the medications the child is taking are not effective in controlling his mood swings. States child is up at 3 AM, and by 9, 10 AM child is down and extremely tired. States that he thinks the meds need to be adjusted and thinks that the Doctor at [facility] may be able to do that. Foster Parentstates that thechild is not welcome back to the house to await transfer. A Stock Mover worker has accompanied the children and Waste Water Operator.). Additional history - No fever, chills, nasal congestion or discharge or sore throat. No chest pain,nausea, vomiting, abdominal pain or back pain. No joint pain, skin rash or lesions, insect bite or laceration. No headache or head injury. The patient denies neck pain. REVIEW OF SYSTEMS No fever or chills. All systems otherwise negative, except as recorded above. PAST HISTORY See nurses notes. Medications: See nurses notes. Allergies: See nurses notes. SOCIAL HISTORY Nonsmoker. No alcohol. ADDITIONAL NOTES The nursing notes have been reviewed. PHYSICAL EXAM Appearance: Alert. No acute distress. Vital Signs: The vital signs have been reviewed. Eyes: Eyes normal inspection. Neck: Normal inspection. Neck supple. CVS: Normal heart rate and rhythm. Heart sounds normal. Respiratory: No respiratory distress. Breath sounds normal. Chest nontender. Abdomen: Abdomen soft and nontender. No organomegaly. Back: Normal inspection. Skin: Normal skin color. Skin warm and dry. No rash. Extremities: Extremities exhibit normal ROM. Neuro: Oriented X 3. PROGRESS AND PROCEDURES Additional history was sought from the patient's bond underwriter. ED Attending on duty and available for supervision: Mina Schwarz. Disposition: Transferred (to [facility]). Condition: good. Discharged home in good condition. CLINICAL IMPRESSION Attention Deficit Hyperactivity Disorder INSTRUCTIONS Pt. medically cleared for transfer to [facility] where pt. will be Evaled by clinician and placed prior to transfer to [facility]. Continue current medications. Mark Mcdonald (Electronically signed Mark Mcdonald 09/24/2003 6:39) Physician's Clinical Report Emergency Department ??? Nursing Summary Registration Date/Time 09/23/2003 8:58 TRIAGE Initial Assessment Triage time 09:Sep 23 2003 Acuity: LEVEL 4. BP: 90 / 58 HR: 109 RR: 18 Temp: 36.9 tympanic Alert. --09:03 Francia Doshi R.N. Weight = 60 lbs. (per patient report). --10:59 Francia Doshi R.N. Medications Clonidine: 0.1mg qd. (Lexapro 20 mg). (Strattera 40 mg). Trazodone: 50mg hs. --09:35 Francia Doshi R.N. Allergies No known drug allergies. --09:04 Francia Doshi R.N. History Historian: patient. Arrived (Arrived by Police). And accompanied by(Patient states, [facility] ). --09:03 Francia Doshi R.N. Pain level now: 0/10. --09:04 Francia Doshi R.N. SOCIAL HX: No functional impairment. Not exposed to second-hand smoke at home. --09:05 Francia Doshi R.N. (iron worker foreman here for child.). --09:15 Francia Doshi R.N. PHYSICAL ASSESSMENT (Patient given slipper socks in triage. Shoes and socks are soaked.). --09:06 Francia Doshi R.N. DISPOSITION / DISCHARGE Discharge instructions reviewed with the bond underwriter. Metal Model Maker verbalized understanding. (discharge reviewed with foster parents). The patient was discharged ([facility]) and accompanied by (foster parents). The patient left the Emergency Department ambulatory and via private vehicle. --11:31 Fly Lew R.N., R.N. Locked/Released at 09/23/2003 22:13 by Caitlin Dixon R.N. documented in this encounter Plan of Treatment Not on file documented as of this encounter Visit Diagnoses Not on filedocumented in this encounter Care Teams Manufacturer Representative Relationship Specialty Start Date End Date Unknown, Provider, PCP - General 03/03/09 11/16/09 Scarlet Del Cid PCP - General 02/15/09 03/02/09 documented as of this encounter
--- OUTSIDE RECORDS SUMMARY | 2024-04-25 16:41 | XMS_ITS | Encounter Summary ---
Author Organization [facility] Address [address] [place] [address] Care Team Providers Care Police And Fire Dispatcher Name Role Phone Unknown, Provider Primary Care Provider Scarlet Del Cid Primary Care Provider Unavailab le Encounter Details Date Type Department Care Team (Late st Contact Info) Description 02/16/2008 Before PRISM Converted Visit (Maple) [facility] - Maple conversion [address] [place] [address] Igor Nogueira MD [address] [place] [phone] Social History Tobacco Use Types Packs/Day Years Used Date Smoking Tobacco: Never Assessed Sex and Gender Information Value Date Recorded Sex Assigned at Not on file Gender Identity Not on file Sexual Orientation Not on file documented as of this encounter Progress Notes * Igor Nogueira MD - 04/07/2009 1212 EDT Sports Medicine and Orthopaedic Trauma Department [facility] [address] [place] [id number] PROGRESS/FOLLOWUP NOTE - 02/16/2008 PROBLEM Vladislav presents to the office today for follow up for his right tibial plateau fracture that was nondisplaced. SUBJECTIVE His date of injury was December 12, 2007. He is feeling very well with no pain today. He has been performing all activities without problem. OBJECTIVE Height is 5 feet 2 inches, weight 95 pounds. General: A&O x3, NAD and pleasant. Examination of the right knee reveals no atrophy, asymmetry, effusion, ecchymosis, or erythema. On palpation, there is no tenderness over the medial tibial plateau. No tenderness over the medial or lateral joint line. No tenderness at the patellar facets. He has full range of motion of the knee and his stability testing is completely negative. Distal neurovascular examination is intact. ASSESSMENT Healed nondisplaced incomplete fracture of the medial aspect of the proximal tibial metaphysis of the right knee. PLAN Patient is fully improved and is to have no restrictions. He is activity as tolerated. He can follow up with us on an as-needed basis. Patient agrees with the plan. All of his questions are answered today. Signed by Igor Nogueira MD 02/24/2008 10:17 Igor Nogueira MD - Igor Nogueira MD - [facility] Job ID: [id number] Doc ID: [id number] cc: documented in this encounter Plan of Treatment Not on file documented as of this encounter Visit Diagnoses Not on filedocumented in this encounter Care Teams Police And Fire Dispatcher Relationship Specialty Start Date End Date Unknown, Provider, PCP - General 03/03/09 11/16/09 Scarlet Del Cid PCP - General 02/15/09 03/02/09 documented as of this encounter
--- OUTSIDE RECORDS SUMMARY | 2024-04-25 16:41 | XMS_ITS | Encounter Summary ---
Author Organization [facility] Address [address] [place] [address] Care Team Providers Care Rag Sorter Name Role Phone Unavailable Primary Care Provider Unavailabl e Encounter Details Date Type Department Care Team (Late st Contact Info) Description 09/18/2000 15:48 EST Hospital Encounter [facility] - Other [address] [place] [address] Kristina Torres MD [address] [address] Unknown, ProviderMD Social History Tobacco Use Types [...] Procedure Name Priority Date/Time Associated Diagnosis Comments MISCELLANEOUS TEST, PRINGLE Routine 09/18/2000 16:00 EST documented in this encounter Results * MISCELLANEOUS TEST (09/18/2000 16:00 EST) Test Name AMPHETAMINES U IMMUNOASSAY [facility] Result (Note) Qual screen by EMIT = Negative ? Amphetamines by GC/MS - Negative by GC/MS ? Cutoff concentration = 500 ng/ml ? Methamphetamine by GC/MS - Negative by GC/MS ? Cutoff concentration = 500 ng/ml ? [facility] Ref Lab [facility] reference lab code [facility] 09/18/2000 16:0 0 EST 09/19/2000 9:45 EST Kristina Torres MD CHEMISTRY & BLOOD GA S ORDERABLES Performing Organization Address City/State/[facility] Co de Phone Number [address] [address] documented in this encounter Visit Diagnoses Not on filedocumented in this encounter
--- OUTSIDE RECORDS SUMMARY | 2024-04-25 16:41 | XMS_ITS | Encounter Summary ---
Author Organization [facility] Address [address] [place] [address] Care Team Providers Care Art History Professor Name Role Phone Unavailable Primary Care Provider Unavailabl e Encounter Details Date Type Department Care Team (Late st Contact Info) Description 10/23/2007 15:05 EDT Hospital Encounter [address] [address] Unknown, ProviderMD Erika Alfonso MD [address] [place] [address] [address] [place] [address] Discharge Disposition: Auto Discharge Social History Tobacco [...]
--- OUTSIDE RECORDS SUMMARY | 2024-04-25 16:41 | XMS_ITS | Encounter Summary ---
Author Organization [facility] Address [address] [place] [address] Care Team Providers Care Residential Real Estate Sales Manager Name Role Phone Unknown, Provider Primary Care Provider Scarlet Del Cid Primary Care Provider Unavailab le Encounter Details Date Type Department Care Team (Late st Contact Info) Description 12/13/2007 Office Visit [facility] - Maple conversion [address] [place] [address] Montrell Lopez MD [address] [facility], Level [address] [place] [address] Social History Tobacco Use Types Packs/Day Years Used Date Smoking Tobacco: Never Assessed Sex and Gender Information Value Date Recorded Sex Assigned at Not on file Gender Identity Not on file Sexual Orientation Not on file documented as of this encounter Progress Notes * Montrell Lopez MD - 08/25/2009 1072 EST Department - Physician Summary Registration Date/Time: 12/13/2007 10:45 Time Seen: 11:35. Arrived- By private vehicle. Historian- patient and mother. HISTORY OF PRESENT ILLNESS Chief Complaint- INJURY TO THE RIGHT KNEE. This occurred yesterday. The patient sustained a twisting injury. (hyperextended knee while jumping on trampoline.). Occurred at home. The patient complains of moderate pain. No blow to the head, neck pain or loss of consciousness. REVIEW OF SYSTEMS The patient has had swelling. He has pain on weight bearing and had weakness. No tingling, numbness, foreign body or laceration. sensation of instability while walking.. PAST HISTORY Negative. Medications: None. Allergies: No known drug allergies. SOCIAL HISTORY Not exposed to second-hand smoke at home. Attends school. PHYSICAL EXAM Appearance: Alert. Oriented X3. No acute distress. Attentive. Smiles. The patient makes eye contact. Head: Head non-tender. Neck: Neck non-tender. Extremities: Right knee: mild erythema and swelling, moderate tenderness and small ecchymosis. No laceration or abrasion. (note hip and ankle or normal). Neuro, Vascular and Tendons: Vascular status intact. Sensation intact. Motor intact. (no extensor tendon lag). Neuro: Mental status is normal for the patient's age. LABS, X-RAYS, AND EKG Rt Tib/Fib X-ray: Normal alignment. Soft tissues normal. Joint spaces normal. No air in the soft tissue or foreign body. Fracture of the proximal right tibia, medial aspect. Views: AP and lateral. Technique: good. The X-rays were independently viewed by me, interpreted by the radiologist and contemporaneously by me and discussed with the radiologist. Prior films were not available for comparison. PROGRESS AND PROCEDURES E.D. Course: 10 yo boy with knee pain s/p twisting injury on trampoline. Plain films show proximal medial tibia fx. Posterior splint applied. . Discussed case with physician . Orthopedics resident.. Reviewed test results. Agreed upon treatment plan and need for patient follow-up. Old medical records reviewed. Disposition: Condition: good. Discharged home. Discharged home in fair condition and improved condition. CLINICAL IMPRESSION Right proximal tibia fracture (Unclear if the ligaments are OK, andthis will need to be rechecked).No comminuted fracture right tibia, displaced fracture right tibia or angulated fracture right tibia. INSTRUCTIONS Use crutches until released. Wear plaster splint until released. Elevate affected areas above chestlevel for three days. No weight bearing until released. PrescriptionMedications: Vicodin 5 mg: take 1 orally every 6 hours as needed for pain. Dispense ten (10). No refill. Follow-up: Return to the emergency department color changes in the foot, worsening pain in the leg, other concerns. Follow-up: DEEJAY COSTELLO MD, ORTHOPAEDICS, [phone], [facility], [address] [facility], [facility]. call this number to be seen in 3-5 days. (Electronically signed by Ronak Lopez M.D. 12/18/2007 9:49) Department - Nursing Summary Registration Date/Time: 12/13/2007 10:45 TRIAGE Initial Assessment Triage time 10:46 Dec 13 2007. Acuity: LEVEL 4. BP: 113 / 60. HR: 120. RR: 16. Temp: 36.7. Alert. --1049 Patrick Tavera R.N.. Medications Adderall: 30mg daily. Clonidine: 0.2mg at bedtime. Risperdal: at bedtime (0.25mg). Strattera: 40mg daily. --1048 Patrick Tavera R.N.. Allergies No known drug allergies. --1049 Patrick Tavera R.N.. History Chief Complaint: INJURY TO RIGHT KNEE (fell on trampoline ). This occurred just prior to arrival. Mechanism of injury: sustained a twisting injury. Pain level now: 4/10. The patient has had mild trouble walking. The patient has been limping when trying to walk. Treatment ACADEMIC COACH: None. PAST HX: Attention deficit and hyperactivity disorder. (PTSD). Arrived by private vehicle. Historian: patient. --104 Patrick Tavera R.N.. PAST HX. NURSING PROGRESS NOTES VICODIN 5 mgPO. Sedative drug warning given to the patient. . --1344 Patrick Tavera R.N. Long posterior stirrup plaster splint applied to right lower leg by nurse; distal pulses intact, sensation intact and motor function within normal limits. --1453 Patrick Tavera R.N. late entry - 1520. Patient fit with crutches. --1600 Patrick Tavera R.N.. DISPOSITION / DISCHARGE Condition at departure: improved. Patient reports pain level on departure as 1/10. Fall risk assessment completed. Low fall risk potential. No learning barriers present. Discharge instructions reviewed with the maori physiotherapist. Reviewed referral to an orthopedic surgeon. Steamship Agent verbalized understanding. The patient was discharged home and accompanied by maori physiotherapist. The patient left the Emergency Department in a wheelchair and via private vehicle. Steamship Agent driving. Departure time: 1530. --1601 Patrick Tavera R.N.. Patrick Tavera R.N. Locked/Released at 12/13/2007 17:11 by Patrick Tavera R.N. documented in this encounter Plan of Treatment Not on file documented as of this encounter Visit Diagnoses Not on filedocumented in this encounter Care Teams Residential Real Estate Sales Manager Relationship Specialty Start Date End Date Unknown, Provider, PCP - General 03/03/09 11/16/09 Scarlet Del Cid PCP - General 02/15/09 03/02/09 documented as of this encounter
--- OUTSIDE RECORDS SUMMARY | 2024-04-25 16:41 | XMS_ITS | Encounter Summary ---
Author Organization [facility] Address [address] [place] [address] Care Team Providers Care Project Product Manager Name Role Phone Unavailable Primary Care Provider Unavailabl e Encounter Details Date Type Department Care Team (Latest Contact Info) Description 12/13/2007 10:45 EDT - 12/14/2007 11:59 EDT Hospital Encounter [facility] Emergency Department - [address] [phone] Emergency, Default, MD Discharge Disposition: Home or [...] Diagnosis Comments KNEE 4 OR MORE VIEWS 12/13/2007 12:24 EDT documented in this encounter Results * KNEE 4 OR MORE VIEWS (12/13/2007 12:24 EDT) Anatomical Region Laterality Modality Other 12/13/2007 12:2 4 EDT Narrative 12/18/2008 13:38 EDT twisting injury to knee yest point tenderness swelling KNEE 4 OR MORE VIEWS ??Dec 13, 2007 12:24:00 PM Signs and Symptoms: ??twisting injury to knee yesterday point tenderness swelling Comparisons: None. Findings: Four views of the right knee were obtained and demonstrate an immature skeleton. There is cortical irregularity at the medial aspect of the tibial metaphysis. There is irregular lucency extending transversely into the metaphysis at this location and is suggestive of a nondisplaced incomplete fracture. This is best seen on the oblique view. No additional bony abnormalities are seen. Impression: Nondisplaced incomplete fracture at the medial aspect of the proximal tibial metaphysis. These findings were discussed with Dr. Lopez in the ER at the time of dictation. I have personally reviewed the images and the above interpretation and agree with the findings. Procedure Note Stefani Mcclellan MD / Saravnaan Ndiaye MD - 12/18/2008 twisting injury to knee yest point tenderness swelling KNEE 4 OR MORE VIEWS Dec 13, 2007 12:24:00 PM Signs and Symptoms: twisting injury to knee yesterday point tenderness swelling Comparisons: None. Findings: Four views of the right knee were obtained and demonstrate an immature skeleton. There is cortical irregularity at the medial aspect of the tibial metaphysis. There is irregular lucency extending transversely into the metaphysis at this location and is suggestive of a nondisplaced incomplete fracture. This is best seen on the oblique view. No additional bony abnormalities are seen. Impression: Nondisplaced incomplete fracture at the medial aspect of the proximal tibial metaphysis. These findings were discussed with Dr. Lopez in the ER at the time of dictation. I have personally reviewed the images and the above interpretation and agree with the findings. Montrell Lopez MD IMG DIAGNOSTIC IM AGING ORDERABLES documented in this encounter Visit Diagnoses Not on filedocumented in this encounter
--- OUTSIDE RECORDS SUMMARY | 2024-04-25 16:41 | XMS_ITS | Encounter Summary ---
Author Organization [facility] Address [address] [place] [address] Care Team Providers Care Campus Recruiting Coordinator Name Role Phone Unavailable Primary Care Provider Unavailabl e Encounter Details Date Type Department Care Team (Latest Contact Info) Description 09/23/2003 8:58 EST - 09/23/2003 11:59 EST Hospital Encounter [facility] Emergency Department - [address] [id number] Emergency, Piotr, MD Discharge Disposition: Home or Self Care [...]
--- OUTSIDE RECORDS SUMMARY | 2024-04-25 16:41 | XMS_ITS | Encounter Summary ---
Author Organization [facility] Address [address] [place] [address] Care Team Providers Care Plant Worker Name Role Phone Unavailable Primary Care Provider Unavailabl e Encounter Details Date Type Department Care Team (Latest Contact Info) Description 11/16/2007 15:05 EDT Hospital Encounter [facility] - [address] [address] Unknown, Provider, Karen Waggoner MD Discharge Disposition: Auto Discharge Social History Tobacco [...]
--- OUTSIDE RECORDS SUMMARY | 2024-04-25 16:41 | XMS_ITS | Encounter Summary ---
Author Organization [facility] Address [address] [place] [address] Care Team Providers Care Shake Out Worker Name Role Phone Unknown, Provider Primary Care Provider Scarlet Del Cid Primary Care Provider Unavailab le Encounter Details Date Type Department Care Team (Late st Contact Info) Description 01/05/2008 Before PRISM Converted Visit (Maple) [facility] - Maple conversion [address] [place] [address] Igor Nogueira MD [address] [place] [phone] Social History Tobacco Use Types Packs/Day Years Used Date Smoking Tobacco: Never Assessed Sex and Gender Information Value Date Recorded Sex Assigned at Not on file Gender Identity Not on file Sexual Orientation Not on file documented as of this encounter Progress Notes * Igor Nogueira MD - 03/31/2009 0021 EDT Sports Medicine and Orthopaedic Trauma Department [facility] [address] [place] [id number] PROGRESS/FOLLOWUP NOTE - 01/05/2008 MARGARITA Loomis presents to the office today with his caregiver. He is here for recheck of his right knee injury. He sustained a partial right metaphyseal tibial fracture on 12/15/2007. He was seen by me initially on 12/22/2007, after being in a posterior knee immobilizer. He states today he is doing quitewell. He has been in a knee brace locked at 20 degrees. He has been comfortable bearing weight without crutches. His pain today is minimal at 0/10. He obtained plain films before his visit to evaluate his healing. Past medical history, past surgical history, medications, social history, and 12-system comprehensive review of systems are all documented in the patients chart. These were reviewed and there are no changes today. OBJECTIVE He is 5 feet 2 inches and weighs 95 pounds. General: Awake, alert, NAD, and pleasant. A and O x3. Examination of the right leg reveals mild atrophy. No effusion, ecchymosis, or erythema. On palpation, there is trace tenderness to the medial side of the tibia proximally. No tenderness over the jointlines. He has range of motion from 0-100 degrees of flexion. Stability testing reveals negative Zohra, anterior drawer and posterior drawer with no abnormal joint widening on varus and valgus stress testing. DIAGNOSTIC DATA Plain films were independently reviewed by me today including AP, lateral, and oblique of the knee,demonstrate healing of the incomplete nondisplaced fracture of the proximal tibial metaphysis. The buckling of the cortex has resolved. ASSESSMENT Healing nondisplaced incomplete fracture in the medial aspect of the proximal tibial metaphysis on the right leg. PLAN The patients diagnosis, prognosis, and treatment were reviewed. He was advanced in his knee immobilizer from 0-90 degrees. He still does have some tenderness at the fracture line. I would like him towear the brace for one week and then he can have activity as tolerated. I do want to see him back one last time in three weeks. There is no need for repeat films. The patient and the patientfather km balize understanding of the diagnosis and agreed with the treatment plan. All their questions were answered today to their satisfaction. Signed by Igor Nogueira MD 01/26/2008 13:03 Igor Nogueira MD - Igor Nogueira MD - TIKA Job ID: [id number] Doc ID: [id number] cc: documented in this encounter Plan of Treatment Not on file documented as of this encounter Visit Diagnoses Not on filedocumented in this encounter Care Teams Shake Out Worker Relationship Specialty Start Date End Date Unknown, Provider, PCP - General 03/03/09 11/16/09 Scarlet Del Cid PCP - General 02/15/09 03/02/09 documented as of this encounter
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
--- OUTSIDE RECORDS SUMMARY | 2024-04-25 16:41 | XMS_ITS | Encounter Summary ---
Author Organization [facility] Address [address] [place] [address] Care Team Providers Care Value Stream Leader Name Role Phone Unavailable Primary Care Provider Unavailabl e Encounter Details Date Type Department Care Team (Late st Contact Info) Description 11/14/1999 19:20 EDT - 11/21/1999 11:59 EDT Hospital Encounter [facility] [address] [place], [place] [address] Jerson Rosa MD [address] [facility] [place] [id number] Emergency, MD Piotr Discharge Disposition: Home or Self Care Social [...] Procedure Name Priority Date/Time Associated Diagnosis Comments CT ABDOMEN W/CONTRAST Routine 11/20/1999 12:13 EDT HOLD Routine 11/20/1999 10:30 EDT COMPLETE BLOOD COUNT Routine 11/20/1999 10:30 EDT CREATININE Routine 11/19/1999 11:20 EDT COMPLETE BLOOD COUNT Routine 11/19/1999 11:20 EDT BUN Routine 11/19/1999 11:20 EDT ELECTROLYTES Routine 11/19/1999 11:20 EDT COMPLETE BLOOD COUNT Routine 11/18/1999 8:55 EDT CREATININE Routine 11/17/1999 9:15 EDT SMEAR REVIEW Routine 11/17/1999 9:15 EDT COMPLETE BLOOD COUNT Routine 11/17/1999 9:15 EDT BUN Routine 11/17/1999 9:15 EDT ELECTROLYTES Routine 11/17/1999 9:15 EDT COMPLETE BLOOD COUNT Routine 11/16/1999 20:30 EDT COMPLETE BLOOD COUNT Routine 11/16/1999 10:53 EDT ELECTROLYTES Routine 11/16/1999 10:53 EDT COMPLETE BLOOD COUNT Routine 11/15/1999 21:05 EDT AMYLASE Routine 11/15/1999 21:05 EDT COMPLETE BLOOD COUNT Routine 11/15/1999 13:03 EDT COMPLETE BLOOD COUNT Routine 11/15/1999 7:15 EDT AMYLASE Routine 11/15/1999 7:15 EDT SMEAR REVIEW Routine 11/15/1999 0:23 EDT COMPLETE BLOOD COUNT Routine 11/15/1999 0:23 EDT AMYLASE Routine 11/15/1999 0:[address] ABDOMEN W/CONTRAST Routine 11/14/1999 19:[address] PELVIS W/CONTRAST Routine 11/14/1999 19:37 EDT CHEST PA AND LATERAL Routine 11/14/1999 19:00 EDT HEMAGRAM & DIFF Routine 11/14/1999 18:29 EDT PTT Routine 11/14/1999 18:29 EDT PROTIME Routine 11/14/1999 18:29 EDT LIPASE Routine 11/14/1999 18:29 EDT documented in this encounter Results * CT ABDOMEN W/CONTRAST (11/20/1999 12:13 EDT) Anatomical Region Laterality Modality Other 11/20/1999 12:1 3 EDT Impressions 05/16/2009 13:56 EST IMPRESSION: 1. Resolving liver lateral laceration. 2. Resolving right adrenal hemorrhage. 3. Small right lower lobe pulmonary contusion. /sharon The attending radiologist has reviewed the images, and concurs with the findings described above. Narrative 05/16/2009 13:56 EST FOLLOW UP LIVER LAC/ CHECK FOR CHANGE CT OF THE ABDOMEN: 11/20/99 0835 HR. HISTORY: Follow up for liver laceration. Evaluate for change, worsening. TECHNIQUE: Prior to examination, the patient was given oral contrast material. Using intravenous contrast material, sections were made from the domes of the diaphragm through the iliac crests. FINDINGS: Evaluation of the abdomen demonstrates a small right lobe resolving liver laceration. There is diminished free fluid since the prior study, including surrounding the adrenal gland on the right. The adrenal hemorrhage is resolving with only small residual thickening of the medial limb. The spleen, left adrenal gland and kidneys appear normal. There is unremarkable appearance of the bowel. There is mild increase in opacity peripherally in the right lower lobe, that probably represents a small pulmonary contusion. Procedure Note Ximena Brooks RN / Lisandra Meeks MD - 05/16/2009 FOLLOW UP LIVER LAC/ CHECK FOR CHANGE CT OF THE ABDOMEN: 11/20/99 0835 HR. HISTORY: Follow up for liver laceration. Evaluate for change, worsening. TECHNIQUE: Prior to examination, the patient was given oral contrast material. Using intravenous contrast material, sections were made from the domes of the diaphragm through the iliac crests. FINDINGS: Evaluation of the abdomen demonstrates a small right lobe resolving liver laceration. There is diminished free fluid since the prior study, including surrounding the adrenal gland on the right. The adrenal hemorrhage is resolving with only small residual thickening of the medial limb. The spleen, left adrenal gland and kidneys appear normal. There is unremarkable appearance of the bowel. There is mild increase in opacity peripherally in the right lower lobe, that probably represents a small pulmonary contusion. IMPRESSION IMPRESSION: 1. Resolving liver lateral laceration. 2. Resolving right adrenal hemorrhage. 3. Small right lower lobe pulmonary contusion. /sharon The attending radiologist has reviewed the images, and concurs with the findings described above. Jerson Rosa MD IMG CT ORDERA BLES * HOLD (11/20/1999 10:30 EDT) Hold Hold for further testing. Specimen will be held for 30 days. RYLEE FISHER 11/20/1999 10:3 0 EDT 11/20/1999 10:35 EDT Jerson Rosa MD CHEMISTRY & B LOOD GAS ORDERABLES RYLEE FISHER [address] [place] [address] * (ABNORMAL) HEMAGRAM (11/20/1999 10:30 EDT) WBC 12.90 5.0 - 14.5 K/cmm [facility] RBC 4.60 3.90 - 5.30 M/cmm [facility] Hemoglobin 14.3(H) 11.5 - 13.5 gm/dl [facility] HCT 40.3(H) 34.0 - 40.0 % [facility] MCV 88(H) 75 - 87 fl [facility] MCH 31.0 pg [facility] MCHC 35.4 gm/dl [facility] PLT 280 156 - 312 K/cmm [facility] RDW-CV 12.9 % [facility] 11/20/1999 10:3 0 EDT 11/20/1999 10:35 EDT Jerson Rosa MD HEMATOLOGY & PF4 ORDERABLES Performing Organization Address [facility] de Phone Number [facility] [address] [place] [address] * ELECTROLYTES (11/19/1999 11:20 EDT) Sodium 140 136 - 145 mEq/L [facility] Potassium 4.5 3.6 - 5.2 mEq/L [facility] Chloride 98 96 - 110 mEq/L [facility] CO2 27 24 - 30 mEq/L [facility] 11/19/1999 11:2 0 EDT 11/19/1999 11:59 EDT Jerson Rosa MD CHEMISTRY & B LOOD GAS ORDERABLES Performing Organization Address [facility] de Phone Number [facility] [address] [place] [address] * CREATININE (11/19/1999 11:20 EDT) Creatinine 0.5 0.1 - 0.7 mg/dl [facility] 11/19/1999 11:2 0 EDT 11/19/1999 11:59 EDT Jerson Rosa MD HISTORICAL LA B FOR SQ LOAD Performing Organization Address [facility] de Phone Number [facility] [address] [place] [address] * (ABNORMAL) HEMAGRAM (11/19/1999 11:20 EDT) WBC 10.48 5.0 - 14.5 K/cmm [facility] RBC 4.37 3.90 - 5.30 M/cmm [facility] Hemoglobin 13.6(H) 11.5 - 13.5 gm/dl [facility] HCT 38.3 34.0 - 40.0 % [facility] MCV 88(H) 75 - 87 fl [facility] MCH 31.0 pg [facility] MCHC 35.4 gm/dl [facility] PLT 237 156 - 312 K/cmm [facility] RDW-CV 12.6 % [facility] 11/19/1999 11:2 0 EDT 11/19/1999 11:59 EDT Jerson Rosa MD HEMATOLOGY & PF4 ORDERABLES Performing Organization Address [facility] Co de Phone Number [facility] [address] [place] [address] * (ABNORMAL) BUN (11/19/1999 11:20 EDT) BUN 19(H) 7 - 18 mg/dl [facility] 11/19/1999 11:2 0 EDT 11/19/1999 11:59 EDT Jerson Rosa MD CHEMISTRY & B LOOD GAS ORDERABLES Performing Organization Address [facility] Co de Phone Number [facility] [address] [place] [address] * (ABNORMAL) HEMAGRAM (11/18/1999 8:55 EDT) WBC 8.20 5.0 - 14.5 K/cmm [facility] RBC 4.38 3.90 - 5.30 M/cmm [facility] Hemoglobin 13.4 11.5 - 13.5 gm/dl [facility] HCT 38.5 34.0 - 40.0 % [facility] MCV 88(H) 75 - 87 fl [facility] MCH 30.7 pg [facility] MCHC 34.9 gm/dl [facility] PLT 217 156 - 312 K/cmm [facility] RDW-CV 12.5 % [facility] 11/18/1999 8:55 EDT 11/18/1999 9:16 EDT Jerson Rosa MD HEMATOLOGY & PF4 ORDERABLES Performing Organization Address [facility] de Phone Number [facility] [address] [place] [address] * SMEAR REVIEW (11/17/1999 9:15 EDT) Smear scan only: Slide was examined by a technologist to verify the WBC and/or platelet count. [facility] Platelet Morphology 1+ Clumped platelets [facility] 11/17/1999 9:15 EDT 11/17/1999 10:05 EDT Jerson Rosa MD HEMATOLOGY & PF4 ORDERABLES Performing Organization Address [facility] de Phone Number [facility] [address] [place] [address] * (ABNORMAL) ELECTROLYTES (11/17/1999 9:15 EDT) Sodium 143 136 - 145 mEq/L [facility] Potassium 4.9 3.6 - 5.2 mEq/L [facility] Chloride 103 96 - 110 mEq/L [facility] CO2 23(L) 24 - 30 mEq/L [facility] 11/17/1999 9:15 EDT 11/17/1999 10:05 EDT Jerson Rosa MD CHEMISTRY & B LOOD GAS ORDERABLES Performing Organization Address [facility] de Phone Number [facility] [address] [place] [address] * CREATININE (11/17/1999 9:15 EDT) Creatinine 0.5 0.1 - 0.7 mg/dl [facility] 11/17/1999 9:15 EDT 11/17/1999 10:05 EDT Jerson Rosa MD HISTORICAL LA B FOR SQ LOAD Performing Organization Address [facility] Co de Phone Number [facility] [address] [place] [address] * (ABNORMAL) HEMAGRAM (11/17/1999 9:15 EDT) WBC 11.40 5.0 - 14.5 K/cmm [facility] RBC 4.37 3.90 - 5.30 M/cmm [facility] Hemoglobin 13.2 11.5 - 13.5 gm/dl [facility] HCT 38.9 34.0 - 40.0 % [facility] MCV 89(H) 75 - 87 fl [facility] MCH 30.3 pg [facility] MCHC 34.0 gm/dl [facility] PLT 228 156 - 312 K/cmm [facility] RDW-CV 13.0 % [facility] 11/17/1999 9:15 EDT 11/17/1999 10:05 EDT Jerson Rosa MD HEMATOLOGY & PF4 ORDERABLES Performing Organization Address [facility] de Phone Number [facility] [address] [place] [address] * BUN (11/17/1999 9:15 EDT) BUN 10 7 - 18 mg/dl [facility] 11/17/1999 9:15 EDT 11/17/1999 10:05 EDT Jerson Rosa MD CHEMISTRY & B LOOD GAS ORDERABLES Performing Organization Address [facility] Co de Phone Number [facility] [address] [place] [address] * (ABNORMAL) HEMAGRAM (11/16/1999 20:30 EDT) WBC 15.88(H) 5.0 - 14.5 K/cmm [facility] RBC 4.48 3.90 - 5.30 M/cmm [facility] Hemoglobin 13.5 11.5 - 13.5 gm/dl [facility] HCT 39.8 34.0 - 40.0 % [facility] MCV 89(H) 75 - 87 fl [facility] MCH 30.1 pg [facility] MCHC 33.9 gm/dl [facility] PLT 242 156 - 312 K/cmm [facility] RDW-CV 12.8 % [facility] 11/16/1999 20:3 0 EDT 11/16/1999 20:59 EDT Jerson Rosa MD HEMATOLOGY & PF4 ORDERABLES Performing Organization Address [facility] Co de Phone Number [facility] [address] [place] [address] * ELECTROLYTES (11/16/1999 10:53 EDT) Sodium Sample quantity insufficient for testing. Repeat sample requested. Slight hemolysis 136 - 145 mEq/L [facility] Potassium 4.7 3.6 - 5.2 mEq/L [facility] Comment: Hemolysis may elevate potassium result. Slight hemolysis Chloride Sample quantity insufficient for testing. Repeat sample requested. Slight hemolysis 96 - 110 mEq/L [facility] CO2 Sample quantity insufficient for testing. Repeat sample requested. Slight hemolysis 24 - 30 mEq/L [facility] 11/16/1999 10:5 3 EDT 11/16/1999 11:00 EDT Jerson Rosa MD CHEMISTRY & B LOOD GAS ORDERABLES Performing Organization Address [facility]/ZIP Co de Phone Number [facility] [address] [place] [address] * (ABNORMAL) HEMAGRAM (11/16/1999 10:53 EDT) WBC 9.60 5.0 - 14.5 K/cmm [facility] RBC 4.05 3.90 - 5.30 M/cmm [facility] Hemoglobin 12.2 11.5 - 13.5 gm/dl [facility] HCT 36.1 34.0 - 40.0 % [facility] MCV 89(H) 75 - 87 fl [facility] MCH 30.1 pg [facility] MCHC 33.8 gm/dl [facility] PLT 213 156 - 312 K/cmm [facility] RDW-CV 13.1 % [facility] 11/16/1999 10:5 3 EDT 11/16/1999 11:00 EDT Jerson Rosa MD HEMATOLOGY & PF4 ORDERABLES Performing Organization Address [facility] Co de Phone Number [facility] [address] [place] [address] * (ABNORMAL) HEMAGRAM (11/15/1999 21:05 EDT) WBC 8.67 5.0 - 14.5 K/cmm [facility] RBC 4.04 3.90 - 5.30 M/cmm [facility] Hemoglobin 12.3 11.5 - 13.5 gm/dl [facility] HCT 36.4 34.0 - 40.0 % [facility] MCV 90(H) 75 - 87 fl [facility] MCH 30.4 pg [facility] MCHC 33.8 gm/dl [facility] PLT 210 156 - 312 K/cmm [facility] RDW-CV 12.9 % [facility] 11/15/1999 21:0 5 EDT 11/15/1999 21:26 EDT Jerson Rosa MD HEMATOLOGY & PF4 ORDERABLES Performing Organization Address [facility] Co de Phone Number [facility] [address] [place] [address] * AMYLASE (11/15/1999 21:05 EDT) Amylase U/L [facility] 11/15/1999 21:0 5 EDT 11/15/1999 21:26 EDT Jerson Rosa MD CHEMISTRY & B LOOD GAS ORDERABLES Performing Organization Address [facility]/ZIP Co de Phone Number [facility] [address] [place] [address] * (ABNORMAL) HEMAGRAM (11/15/1999 13:03 EDT) WBC 7.18 5.0 - 14.5 K/cmm [facility] RBC 3.67(L) 3.90 - 5.30 M/cmm [facility] Hemoglobin 11.2(L) 11.5 - 13.5 gm/dl [facility] HCT 32.5(L) 34.0 - 40.0 % [facility] MCV 88(H) 75 - 87 fl [facility] MCH 30.4 pg [facility] MCHC 34.4 gm/dl [facility] PLT 197 156 - 312 K/cmm [facility] RDW-CV 13.1 % [facility] 11/15/1999 13:0 3 EDT 11/15/1999 13:03 EDT Jerson Rosa MD HEMATOLOGY & PF4 ORDERABLES Performing Organization Address [facility] Co de Phone Number [facility] [address] [place] [address] * (ABNORMAL) HEMAGRAM (11/15/1999 7:15 EDT) WBC 7.29 5.0 - 14.5 K/cmm [facility] RBC 3.63(L) 3.90 - 5.30 M/cmm [facility] Hemoglobin 11.2(L) 11.5 - 13.5 gm/dl [facility] HCT 32.0(L) 34.0 - 40.0 % [facility] MCV 88(H) 75 - 87 fl [facility] MCH 30.8 pg [facility] MCHC 34.9 gm/dl [facility] PLT 186 156 - 312 K/cmm RYLEE FISHER RDW-CV 13.1 % [facility] 11/15/1999 7:15 EDT 11/15/1999 7:19 EDT Jerson Rosa MD HEMATOLOGY & PF4 ORDERABLES Performing Organization Address [facility] de Phone Number [facility] [address] [place] [address] * AMYLASE (11/15/1999 7:15 EDT) Amylase 40 U/L [facility] 11/15/1999 7:15 EDT 11/15/1999 7:19 EDT Jerson Rosa MD CHEMISTRY & B LOOD GAS ORDERABLES Performing Organization Address [facility] de Phone Number [facility] [address] [place] [address] * SMEAR REVIEW (11/15/1999 0:23 EDT) Smear scan only: Slide was examined by a technologist to verify the WBC and/or platelet count. RYLEE FISHER Platelet Morphology 1+ Clumped platelets RYLEE FISHER 11/15/1999 0:23 EDT 11/15/1999 0:26 EDT Jerson Rosa MD HEMATOLOGY & PF4 ORDERABLES Performing Organization Address [facility] de Phone Number [facility] [address] [place] [address] * (ABNORMAL) HEMAGRAM (11/15/1999 0:23 EDT) WBC 9.00 5.0 - 14.5 K/cmm RYLEE FISHER RBC 4.07 3.90 - 5.30 M/cmm RYLEE FISHER Hemoglobin 12.2 11.5 - 13.5 gm/dl RYLE[facility] HCT 35.8 34.0 - 40.0 % RYLEE FISHER MCV 88(H) 75 - 87 fl [facility] MCH 29.9 pg [facility] MCHC 34.1 gm/dl [facility] PLT 157 156 - 312 K/cmm [facility] RDW-CV 12.8 % [facility] 11/15/1999 0:23 EDT 11/15/1999 0:26 EDT Jerson Rosa MD HEMATOLOGY & PF4 ORDERABLES Performing Organization Address [facility] de Phone Number [facility] [address] [place] [address] * AMYLASE (11/15/1999 0:23 EDT) Amylase 42 U/L [facility] 11/15/1999 0:23 EDT 11/15/1999 0:26 EDT Jerson Rosa MD CHEMISTRY & B LOOD GAS ORDERABLES Performing Organization Address [facility] de Phone Number [facility] [address] [place] [address] * CT PELVIS W/CONTRAST (11/14/1999 19:37 EDT) Anatomical Region Laterality Modality Other 11/14/1999 19:3 7 EDT Impressions 05/16/2009 14:47 EST IMPRESSION: 1) Right lobe liver laceration with surrounding free fluid. 2) Probable right adrenal hemorrhage. 3) No other abnormality in the soft tissues or bones. The attending radiologist has reviewed the images, and concurs with the findings described above. /vjc Narrative 05/16/2009 14:47 EST S/P 6FT FALL RT ABD PAIN R/O BLEED CT OF THE ABDOMEN AND PELVIS 11/14/99 HISTORY: S/P 6 foot fall. Right upper quadrant abdominal pain. Rule out splenic or liver laceration. TECHNIQUE ABDOMEN: Prior to the examination, the patient was given oral contrast material. Using intravenous contrast, sections were made from the domes of the diaphragm through the iliac crests. TECHNIQUE PELVIS: After the above preparation, sections were made from the iliac crests through the ischial tuberosities. FINDINGS: The lungs bases are clear. The heart and pericardium appear normal. Evaluation of the abdomen and pelvis demonstrates a significant right lobe liver laceration with surrounding fluid in Bryant's pouch and the right pericolic gutter. Additionally there is fluid density tracking along the portal vein. There is increased hypodensity in the right adrenal gland, probably representing hemorrhage. The left adrenal gland, kidneys, spleen, pancreas, and bowel appear normal. Delayed images of the kidneys and bladder demonstrate no abnormality. These results were discussed with Dr. Cholo Robbins and Dr. Rosa shortly after the examination was completed. Procedure Note Ximena Brooks RN / Hilda Castro MD - 05/16/2009 S/P 6FT FALL RT ABD PAIN R/O BLEED CT OF THE ABDOMEN AND PELVIS 11/14/99 HISTORY: S/P 6 foot fall. Right upper quadrant abdominal pain. Rule out splenic or liver laceration. TECHNIQUE ABDOMEN: Prior to the examination, the patient was given oral contrast material. Using intravenous contrast, sections were made from the domes of the diaphragm through the iliac crests. TECHNIQUE PELVIS: After the above preparation, sections were made from the iliac crests through the ischial tuberosities. FINDINGS: The lungs bases are clear. The heart and pericardium appear normal. Evaluation of the abdomen and pelvis demonstrates a significant right lobe liver laceration with surrounding fluid in Bryant's pouch and the right pericolic gutter. Additionally there is fluid density tracking along the portal vein. There is increased hypodensity in the right adrenal gland, probably representing hemorrhage. The left adrenal gland, kidneys, spleen, pancreas, and bowel appear normal. Delayed images of the kidneys and bladder demonstrate no abnormality. These results were discussed with Dr. Cholo Robbins and Dr. Rosa shortly after the examination was completed. IMPRESSION IMPRESSION: 1) Right lobe liver laceration with surrounding free fluid. 2) Probable right adrenal hemorrhage. 3) No other abnormality in the soft tissues or bones. The attending radiologist has reviewed the images, and concurs with the findings described above. /jaimee Marilee VAZQUEZ IMG CT ORDERABLES * CT ABDOMEN W/CONTRAST (11/14/1999 19:37 EDT) Anatomical Region Laterality Modality Other 11/14/1999 19:3 7 EDT Narrative 05/16/2009 14:47 EST S/P 6FT FALL RT ABD PAIN R/O BLEED Procedure Note Ximena Brooks RN / Hilda Castro MD - 05/16/2009 S/P 6FT FALL RT ABD PAIN R/O BLEED Marilee VAZQUEZ IMG CT ORDERABLES * CHEST PA AND LATERAL (11/14/1999 19:00 EDT) Anatomical Region Laterality Modality Other 11/14/1999 19:0 0 EDT Impressions 05/16/2009 14:47 EST IMPRESSION: 1. Normal study. ; / Narrative 05/16/2009 14:47 EST R/O FRACTURE AND PNEUMONIA ABDOMEN PAIN -RUQ S/P FALL CHEST PA AND LATERAL: 11/14/99 Examination is requested for history of abdominal pain following trauma. We are asked to rule out fracture or pneumonia. Heart size is within normal limits. Pulmonary vasculature is normal. Lungs are clear. No definite fracture or pneumothorax is seen. Procedure Note Hilda Castro MD - 05/16/2009 R/O FRACTURE AND PNEUMONIA ABDOMEN PAIN -RUQ S/P FALL CHEST PA AND LATERAL: 11/14/99 Examination is requested for history of abdominal pain following trauma. We are asked to rule out fracture or pneumonia. Heart size is within normal limits. Pulmonary vasculature is normal. Lungs are clear. No definite fracture or pneumothorax is seen. IMPRESSION IMPRESSION: 1. Normal study. ; / Marilee VAZQUEZ IMG DIAGNOSTIC IMAGI NG ORDERABLES * PTT (11/14/1999 18:29 EDT) PTT 20 20 - 31 secs [facility] Comment:Therapeutic Heparin range: 58-100 seconds 11/14/1999 18:2 9 EDT 11/14/1999 18:29 EDT Default Emergency MD HEMATOLOGY & PF4 OR DERABLES Performing Organization Address [facility] de Phone Number [facility] [address] [place] [address] * (ABNORMAL) PROTIME (11/14/1999 18:29 EDT) Pro Time 13.6(H) 11.7 - 13.4 secs [facility] I.N.R. 1.2 0.8 - 1.2 Ratio [facility] Comment: Moderate Intensity Coumadin INR = 2.0-3.0 Adjustments in anticoagulant therapy dose should be based upon the INR and NOT the Pro Time 11/14/1999 18:2 9 EDT 11/14/1999 18:29 EDT Default Emergency MD HEMATOLOGY & PF4 OR DERABLES Performing Organization Address [facility] de Phone Number [facility] [address] [place] [address] * LIPASE (11/14/1999 18:29 EDT) Lipase 31 25 - 120 U/L [facility] 11/14/1999 18:2 9 EDT 11/14/1999 18:29 EDT Default Emergency MD CHEMISTRY & BLOOD G ORDERABLES Performing Organization Address [facility] de Phone Number [facility] [address] [place] [address] * (ABNORMAL) HEMAGRAM & DIFF (11/14/1999 18:29 EDT) WBC 17.80(H) 5.0 - 14.5 K/cmm [facility] RBC 4.60 3.90 - 5.30 M/cmm [facility] Hemoglobin 13.9(H) 11.5 - 13.5 gm/dl [facility] HCT 40.4(H) 34.0 - 40.0 % [facility] MCV 88(H) 75 - 87 fl [facility] MCH 30.2 pg [facility] MCHC 34.4 gm/dl [facility] PLT 261 156 - 312 K/cmm [facility] RDW-CV 13.2 % [facility] % Neutrophils 88.7 % [facility] % Lymphocytes 6.3 % [facility] % Monocytes 4.5 % [facility] % Eosinophils 0.3 % [facility] % Basophils 0.2 % [facility] ABS Neutrophils 15.79 K/cmm [facility] ABS Lymphs 1.12 K/cmm [facility] ABS Monocytes 0.81 K/cmm [facility] ABS Eosinophils 0.05 K/cmm [facility] ABS Basophils 0.03 K/cmm [facility] Type of Diff: Automated [facility] 11/14/1999 18:2 9 EDT 11/14/1999 18:29 EDT Default Emergency MD HISTORICAL LAB FOR SQ LOAD [facility] [address] [place] [address] documented in this encounter Visit Diagnoses Not on filedocumented in this encounter
--- OUTSIDE RECORDS SUMMARY | 2024-04-25 16:41 | XMS_ITS | Encounter Summary ---
Author Organization [facility] Address [address] [place] [address] Care Team Providers Care Locomotive Oiler Name Role Phone Scarlet Del Cid Primary Care Provider Unavailab le Unknown, Provider Primary Care Provider [phone] Scarlet Del Cid Primary Care Provider Unavailab le Encounter Details Date Type Department Care Team (Late st Contact Info) Description 08/01/2004 Results Only [facility] [address] [place] [address] Unknown, Provider, Social History Tobacco Use Types Packs/Day Years Used Date Smoking Tobacco: Never Assessed Sex and Gender Information Value Date Recorded Sex Assigned at Not on file Gender Identity Not on file Sexual Orientation Not on file documented as of this encounter Plan of Treatment Not on file documented as of this encounter Procedures Procedure Name Priority Date/Time Associated Diagnosis Comments IBC Routine 08/01/2004 9:36 EST IRON Routine 08/01/2004 9:36 EST documented in this encounter Results * IRON (08/01/2004 9:36 EST) Iron 171 40 - 200 ug/dl [facility] 08/01/2004 9:36 EST 08/01/2004 20:52 EST Provider Unknown CHEMISTRY & BLOOD GA S ORDERABLES [facility] [address] [place] [address] * IBC (08/01/2004 9:36 EST) TIBC 342 ug/dl [facility] 08/01/2004 9:36 EST 08/01/2004 20:52 EST Provider Unknown CHEMISTRY & BLOOD GA S ORDERABLES Performing Organization Address City/State/[facility] Co de Phone Number [facility] [address] [place] [address] documented in this encounter Visit Diagnoses Not on filedocumented in this encounter Care Teams Locomotive Oiler Relationship Specialty Start Date End Date Scarlet Del Cid PCP - General 11/17/09 10/18/13 Unknown, Provider, PCP - General 03/03/09 11/16/09 Scarlet Del Cid PCP - General 02/15/09 03/02/09 documented as of this encounter
--- NOTE | 2024-04-25 16:54 | W.ED.GENAD ---
Discharge Plan Disposition Patient Disposition: Home Discharge Details Clinical Impression: Screening examination for STD (sexually transmitted disease), Discharge from penis Primary Care Provider: Unknown,Unknown ED Provider: Suzy Bess Home Meds and New Rx's Prescriptions: No Action buprenorphine-naloxone [Suboxone] 8-2 mg film 3 film sublingual QDAY Rx Instructions: place 1 strip/tab under (each) side of tongue Discharge Instructions Instructions: Sexually transmitted infections Additional Instructions: I have placed a referral for you to establish care with primary care. Care management will be following up with you on this. Your blood work and urine are pending, should be available within the week. You have been treated for gonorrhea and chlamydia. I encourage you to use condoms every time you have sexual intercourse to prevent exposure to STDs. Return to emergency care if you develop inability to urinate, changes to your penis, new concerning symptoms, or if you are very worried and need to be rechecked again immediately Referrals: Care Management [Provider Group] HPI General Date/Time Provider Initiated Documentation: 04/25/24 16:23. HPI Narrative: Vladislav presents to the emergency department today for evaluation of penile discharge. He reports that he had unprotected sex with a female partner 4 days ago, today started with dysuria and penile discharge. He reports he has otherwise been feeling well, denies fever/chills, sore throat, abdominal pain, difficulty urinating. He does have a history of chlamydia, says this is similar to his previous infections. He did recently have STD testing while in halfway 10 months ago. Denies history of immunocompromise or antibiotic allergies. Physical exam performed with male venetian blind cleaner and repairer. Patient is alert and oriented, no acute distress. No abdominal tenderness. No genital abnormalities. No obvious discharge from penis. History and presentation most consistent with gonorrhea or chlamydia. No red flags at this time for complication of infection. Will treat with one-time dose of azithromycin and ceftriaxone IM. Discussed risk of exposure to STDs with protected sex, patient would like to have STD screening performed at this time. Educated on importance of condom use with new partners and mechanisms/prevention of STD transmission. Care management referral placed to establish care with PCP. Reviewed discharge instructions with patient, he is agreeable with plan of care. Related Data Home Medications ?Medication ?Instructions ?Recorded ?Confirmed buprenorphine 8 mg-naloxone 2 mg 3 film sublingual QDAY 09/27/23 04/25/24 sublingual film (Suboxone) Allergies Allergy/AdvReac Type Severity Reaction Status Date / Time No Known Allergies Allergy Unverified 04/25/24 16:33 General Stated Complaint: Male Reproductive Problem SIMA: 4 Review of Systems Narrative: see HPI Exam Const General: cooperative, healthy appearing, comfortable, no acute distress, well developed and well groomed Nutritional Appearance: average body habitus Orientation: alert and oriented x3 Resp Effort & Inspection: normal respiratory effort and able to speak in complete sentences GI Inspection: normal to inspection Palpation: soft and nontender Male General Exam: Yes normal external exam Penis: normal penis Meatus: meatus normal Scrotum: scrotum normal Testes: normal Course Vital Signs Vital signs: Vital Signs Temperature 36.6 C 04/25/24 16:31 Pulse 76 04/25/24 16:31 Respiratory Rate 10 L 04/25/24 16:31 Blood Pressure 117/72 04/25/24 16:31 Pulse Oximetry 97 04/25/24 16:31 Temperature 36.6 C 04/25/24 16:31 Temperature Source Oral 04/25/24 16:31 Pulse 76 04/25/24 16:31 Respiratory Rate 10 L 04/25/24 16:31 Blood Pressure 117/72 04/25/24 16:31 Blood Pressure Position Sitting 04/25/24 16:31 Pulse Oximetry 97 04/25/24 16:31 Oxygen Delivery Method Room Air 04/25/24 16:31 Oxygen Flow Rate 0 04/25/24 16:31 Pain Level 0 04/25/24 16:31 Medical Decision Making Quality:SDOH Health Related Social Needs: No Data to Display PFSH All Active Problems (Updated 04/25/24 @ 17:33 by Suzy Bustamante) Discharge from penis (Acute) Screening examination for STD (sexually transmitted disease) (Acute) Family History (Updated 05/14/23 @ 11:14 by Queta Enrique) Mother Alcohol use disorder Social History (Updated 05/14/23 @ 11:13 by Queta Enrique) Smoking/Tobacco Use Status: Current every day Tobacco Type: e-cigarettes Second Hand Exposure: No Smoking risk assessment performed?: Yes Alcohol Intake: current Alcohol Intake frequency: holidays/special occasions only Drug use: Current Sobriety Substance use type: does not use Caregiver/Support person: No Foster care: Yes Housing: house Number of Children: 0 number of grandchildren: 0 Communication Needs: None Do you need help understanding health information?: Never Sexually active: Yes Do you think of yourself as: straight/heterosexual Current gender identity: male What is your relationship status?: never How often do you talk on the phone with friends or family?: never Do you belong to any clubs or organized social groups?: no Panel score (0-1 are the most socially isolated patients): 0 Duration: > 90 minutes/day Frequency: daily Seatbelt use: never Helmet use: No Drive intox or ride w/intox vibratory pile driver: No Do you feel safe at home: Yes Do you feel safe in your relationship?: Yes
[2024-04-25] MEDS: Azithromycin 250 MG TAB 1000 MG PO (18:31)
[2024-04-25] MEDS: Lidocaine 1% Pres-Free 5 ML VIAL (18:31)
[2024-04-25] MEDS: cefTRIAXone 1 GM VIAL IM (18:31)
[2024-04-25 18:32] VITALS: BP 122/68; PULSE 81; RESP 21; O2SAT 99
[2024-04-26 19:08] LABS: HIV-1/2 Ag & Ab Screen Negative (Negative)
[2024-04-26 19:41] LABS: HBs Antibody, Quant 26.1 mIU/mL (See Note); Hep B Surface Ab Positive (See Note); Hepatitis B Core Antibody Negative (Negative); Hepatitis B Surface Antigen Negative (Negative)
[2024-04-26 19:45] LABS: Hepatitis C Ab w Rflx HCV PCR Reactive (Negative)
[2024-04-27 10:07] LABS: Syphilis Serology (RPR) Negative (Negative)
[2024-04-27 11:44] LABS: Chlamydia Result Negative (Negative); GC Result Negative (Negative)
[2024-04-28 12:08] LABS: HCV RNA Qualitative Undetected (Undetected)
== END 2024-04-25 18:34 | disposition home or self-care (01) ==
PROVIDERS: Emergency Provider Nurse Practitioner Family
DX: R36.9 Urethral discharge, unspecified (principal); R30.0 Dysuria; F17.290 Nicotine dependence, other tobacco product, uncomplicated
CPT/HCPCS: 86704; 86706; 86803; 87340; 87389; 87491; 87522; 87591; 96374; 99284; 86592; 99283; J0696; J2003

== ENCOUNTER 2024-06-28 16:47 | Emergency (ER) | payer MEDICAID, SELFPAY ==
[2024-06-28 16:52] VITALS: BP 121/81; PULSE 72; RESP 15; TEMP 36.8; O2SAT 98
[2024-06-28 16:55] VITALS: BP 121/81; PULSE 72; RESP 15; TEMP 36.8; O2SAT 98
--- NOTE | 2024-06-28 17:50 | W.ED.GENAD ---
Discharge Plan Disposition Patient Disposition: Home Discharge Details Clinical Impression: Abnormal penile discharge Primary Care Provider: Unknown,Unknown ED Provider: Suzy Bess Home Meds and New Rx's Prescriptions: No Action buprenorphine-naloxone [Suboxone] 8-2 mg film 3 film sublingual QDAY Rx Instructions: place 1 strip/tab under (each) side of tongue Discharge Instructions Additional Instructions: A referral has been placed for you to establish care with primary care. I encourage you to answer the phone if you see an [facility] number, as they would be reaching out to you directly. You have been treated for gonorrhea and chlamydia. I encourage you to use condoms every time you have sexual intercourse to prevent exposure to STDs. Return to emergency care if you develop inability to urinate, changes to your penis, new concerning symptoms, or if you are very worried and need to be rechecked again immediately You have declined additional STD testing today. Please return to care if you develop any new or concerning symptoms that you feel you need to have checked immediately. HPI General Date/Time Provider Initiated Documentation: 06/28/24 17:11. HPI Narrative: Vladislav is a 28year old male who presents to the emergency department today for evaluation of penile discharge. He reports that he has had multiple sexual partners in the last year (10), does not consistently use protection. Last sexual intercourse was 2 weeks ago. He reports he has had pain with urination and discharge, feels like he is having some discomfort at the back of his urethra as well that makes it difficult for him to void. He is able to void fully. He denies fever/chills,, nausea/vomiting, abdominal pain, change in bowel function, swelling/pain to penis or testicles. Past medical history is significant for previous presentation for similar symptoms. Physical exam remarkable for scant clear discharge from urethra which patient was able to manually express for sample. No lymphadenopathy noted to inguinal lymph nodes. There are no lesions or swelling/tenderness to penis or testicles. Genital exam performed with male irrigation specialist at bedside History and presentation consistent with gonorrhea or chlamydia infection. Will treat empirically with ceftriaxone 500 mg IM and azithromycin 1 g. While in the emergency department, Vladislav received antibiotics for empiric treatment and counseling on use of protection. Notification of partners. I did elder counselor him on STD testing, he is declines it at this time. I also reviewed previous STD test results with Vladislav. Reviewed discharge instructions with patient, including red flags indicating need for return to emergency care and importance of follow-up with PCP. He does not currently have a PCP, referral made to care management for help establishing care with PCP. Related Data Home Medications ?Medication ?Instructions ?Recorded ?Confirmed buprenorphine 8 mg-naloxone 2 mg 3 film sublingual QDAY 09/27/23 06/28/24 sublingual film (Suboxone) Allergies Allergy/AdvReac Type Severity Reaction Status Date / Time No Known Allergies Allergy Unverified 06/28/24 16:57 General Stated Complaint: Urinary SIMA: 4 Review of Systems Narrative: See HPI Exam Const General: cooperative, healthy appearing and comfortable Nutritional Appearance: average body habitus Male General Exam: Yes normal external exam, No ecchymosis, No edema, No erythema, No hernia, No inguinal lymphadenopathy, No lacerations and No lesions Penis: normal penis Meatus: meatal discharge (Clear discharge) Scrotum: scrotum normal Testes: normal, testicular lie normal and epididymides normal Course Vital Signs Vital signs: Vital Signs Temperature 36.8 C 06/28/24 16:52 Pulse 72 06/28/24 16:52 Respiratory Rate 15 06/28/24 16:52 Blood Pressure 121/81 06/28/24 16:52 Pulse Oximetry 98 06/28/24 16:52 Temperature 36.8 C 06/28/24 16:55 Pulse 72 06/28/24 16:55 Respiratory Rate 15 06/28/24 16:55 Blood Pressure 121/81 06/28/24 16:55 Blood Pressure Position Sitting 06/28/24 16:55 Pulse Oximetry 98 06/28/24 16:55 Oxygen Delivery Method Room Air 06/28/24 16:55 Oxygen Flow Rate 0 06/28/24 16:52 Medical Decision Making Quality:SDOH Health Related Social Needs: No Data to Display PFSH All Active Problems (Updated 06/28/24 @ 18:05 by Suzy Bustamante) Abnormal penile discharge (Acute) Family History (Updated 05/14/23 @ 11:14 by Queta Enrique) Mother Alcohol use disorder Social History (Updated 05/14/23 @ 11:13 by Queta Enrique) Smoking/Tobacco Use Status: Current every day Tobacco Type: e-cigarettes Second Hand Exposure: No Smoking risk assessment performed?: Yes Alcohol Intake: current Alcohol Intake frequency: holidays/special occasions only Drug use: Current Sobriety Substance use type: does not use Caregiver/Support person: No Foster care: Yes Housing: house Number of Children: 0 number of grandchildren: 0 Communication Needs: None Do you need help understanding health information?: Never Sexually active: Yes Do you think of yourself as: straight/heterosexual Current gender identity: male What is your relationship status?: never How often do you talk on the phone with friends or family?: never Do you belong to any clubs or organized social groups?: no Panel score (0-1 are the most socially isolated patients): 0 Duration: > 90 minutes/day Frequency: daily Seatbelt use: never Helmet use: No Drive intox or ride w/intox delivery truck driver heavy: No Do you feel safe at home: Yes Do you feel safe in your relationship?: Yes
[2024-06-28] MEDS: Azithromycin 250 MG TAB 1000 MG PO (18:19)
[2024-06-28] MEDS: cefTRIAXone 1 GM VIAL 0.5 GM IM (18:19)
[2024-06-28] MEDS: Lidocaine 1% Multi-Dose 50 ML VIAL (18:36)
[2024-06-28 18:38] VITALS: BP 121/81; PULSE 72; RESP 15; TEMP 36.8; O2SAT 98
== END 2024-06-28 18:05 | disposition home or self-care (01) ==
PROVIDERS: Emergency Provider Nurse Practitioner Family
DX: R30.0 Dysuria (principal); R36.9 Urethral discharge, unspecified; F17.290 Nicotine dependence, other tobacco product, uncomplicated
CPT/HCPCS: 87491; 87591; 96374; 99284; 99283; J0696; J2003

== ENCOUNTER 2024-08-28 13:52 | Emergency (ER) | payer MEDICAID, SELFPAY ==
[2024-08-28 14:00] VITALS: BP 109/70; PULSE 71; RESP 15; TEMP 37.3; O2SAT 98
[2024-08-28 14:03] VITALS: BP 109/70; PULSE 71; RESP 15; TEMP 37.3; O2SAT 98
--- NOTE | 2024-08-28 14:20 | DI.RAD_ITS ---
Exam(s) XR CHEST 2V PA LATERAL EXAM: XR CHEST 2V PA LATERAL CLINICAL HISTORY: COUGH TECHNIQUE: 2D digital imaging was performed of the chest. Two images were obtained. PA and lateral views were obtained. COMPARISON: CR,XR XR CHEST 2V PA LATERAL from 09/27/2023 FINDINGS: MEDIASTINUM: Normal. HEART: Normal. PULMONARY VASCULATURE: Normal. LUNGS: Clear. PLEURAL SPACE: No pleural effusion or pneumothorax. BONE:Within normal limits for the patient's age. OTHER FINDINGS:Normal. IMPRESSION: No acute pulmonary findings. DATA REPOSITORY: RADIATION DOSE DELIVERED:
--- NOTE | 2024-08-28 14:58 | ED.GENADUL_ITS ---
Discharge Plan Disposition Patient Disposition: Home Discharge Details Clinical Impression: Pneumonia Primary Care Provider: None,None ED Provider: Delia Jensen Home Meds and New Rx's Prescriptions: New promethazine 6.25 mg/5 mL syrup 12.5 mg PO Q6H PRN (Reason: cough) Qty: 120 0RF benzonatate 100 mg capsule 100 mg PO TID PRN (Reason: cough) Qty: 30 0RF amoxicillin-pot clavulanate 875-125 mg tablet 1 tab PO BID 7 Days Qty: 14 0RF No Action buprenorphine-naloxone [Suboxone] 8-2 mg film 3 film sublingual QDAY Rx Instructions: place 1 strip/tab under (each) side of tongue Discharge Instructions Instructions: Pneumonia, Adult ED Additional Instructions: Symptoms this week are consistent with influenza. But your symptoms have been going on too long to warrant testing Your chest x-ray does demonstrate an pneumonia Please take the antibiotics as prescribed Continue to treat fever and bodyaches with Motrin and Tylenol Make sure that you are drinking lots of water Return with worsening cough, shortness of breath, not tolerating anything by mouth or any other concerns. HPI General Date/Time Provider Initiated Documentation: 08/28/24 13:59 . Limitations to Documentation: no limitations . Information obtained by: patient . HPI Narrative: 28-year-old gentleman with past medical history of opiate use disorder presents for evaluation of URI symptoms. The patient reports that he has had ongoing symptoms for the last 6 days. Symptoms have include body aches, ear pain throat pain fever and cough. Reports that he initially had some vomiting but that seems to have resolved. He reports that his cough has been persistent and productive of thick colorful mucus. Related Data Home Medications ?Medication ?Instructions ?Recorded ?Confirmed buprenorphine 8 mg-naloxone 2 mg 3 film sublingual QDAY 09/27/23 08/28/24 sublingual film (Suboxone) amoxicillin 875 mg-potassium 1 tab PO BID 7 days #14 tabs 08/28/24 clavulanate 125 mg tablet benzonatate 100 mg capsule 100 mg PO TID PRN cough #30 caps 08/28/24 promethazine 6.25 mg/5 mL oral 12.5 mg (10 mL) PO Q6H PRN cough 08/28/24 syrup #120 mL Previous Rx's ?Medication ?Instructions ?Recorded amoxicillin 875 mg-potassium 1 tab PO BID 7 days #14 tabs 08/28/24 clavulanate 125 mg tablet benzonatate 100 mg capsule 100 mg PO TID PRN cough #30 caps 08/28/24 promethazine 6.25 mg/5 mL oral 12.5 mg (10 mL) PO Q6H PRN cough 08/28/24 syrup #120 mL Allergies Allergy/AdvReac Type Severity Reaction Status Date / Time No Known Allergies Allergy Unverified 08/28/24 14:02 General Stated Complaint: RespSymp SIMA: 3 Exam Narrative Exam Narrative: Review of Systems: All systems reviewed & are unremarkable except as noted in HPI and below Well-developed, no acute distress NCAT Oropharynx without lesions or exudate RRR no murmur Unlabored respiratory effort, no hypoxia, decreased air movement and rhonchi in the right middle lobe Nondistended abdomen Extremities w/o Edema No rashes or lesions. Course Vital Signs Vital signs: Vital Signs Temperature 37.3 C 08/28/24 14:00 Pulse 71 08/28/24 14:00 Respiratory Rate 15 08/28/24 14:00 Blood Pressure 109/70 08/28/24 14:00 Pulse Oximetry 98 08/28/24 14:00 Temperature 37.3 C 08/28/24 14:03 Pulse 71 08/28/24 14:03 Respiratory Rate 15 08/28/24 14:03 Respiratory Effort Normal 08/28/24 14:39 Respiratory Depth Normal 08/28/24 14:39 Blood Pressure 109/70 08/28/24 14:03 Blood Pressure Position Sitting 08/28/24 14:03 Pulse Oximetry 98 08/28/24 14:03 Oxygen Delivery Method Room Air 08/28/24 14:03 Oxygen Flow Rate 0 08/28/24 14:03 Medical Decision Making Emergent evaluation of URI symptoms. Symptoms have been ongoing for 6 days so viral testing does not seem to be warranted. The patient's symptoms are consistent with influenza. A chest x-ray was obtained to evaluate for possible pneumonia which based on my interpretation, there does not appear to be a focal consolidation in the right middle lobe. Will treat with antibiotics. Patient otherwise does not have risk factors, he does smoke. Will send cough medication and antibiotics to the pharmacy. He otherwise appears clinically well-hydrated and no other symptoms requiring further emergent workup or hospitalization. Return precautions advised. Quality:SDOH Health Related Social Needs: No Data to Display PFSH All Active Problems (Updated 08/28/24 @ 14:33 by Delia Jensen MD) Pneumonia (Acute) Family History (Updated 05/14/23 @ 11:14 by Queta Enrique) Mother Alcohol use disorder Social History (Updated 05/14/23 @ 11:13 by Queta Enrique) Smoking/Tobacco Use Status: Current every day Tobacco Type: e-cigarettes Second Hand Exposure: No Smoking risk assessment performed?: Yes Alcohol Intake: current Alcohol Intake frequency: holidays/special occasions only Drug use: Current Sobriety Substance use type: does not use Caregiver/Support person: No Foster care: Yes Housing: house Number of Children: 0 number of grandchildren: 0 Communication Needs: None Do you need help understanding health information?: Never Sexually active: Yes Do you think of yourself as: straight/heterosexual Current gender identity: male What is your relationship status?: never How often do you talk on the phone with friends or family?: never Do you belong to any clubs or organized social groups?: no Panel score (0-1 are the most socially isolated patients): 0 Duration: > 90 minutes/day Frequency: daily Seatbelt use: never Helmet use: No Drive intox or ride w/intox motorcycle delivery driver: No Do you feel safe at home: Yes Do you feel safe in your relationship?: Yes
--- NOTE | 2024-08-28 15:29 | DI.VRAD_ITS ---
PROCEDURE INFORMATION: Exam: XR Chest Exam date and time: 08/28/2024 2:20 PM Age: 28 years old Clinical indication: Cough TECHNIQUE: Imaging protocol: Radiologic exam of the chest. Views: 2 views. COMPARISON: CR XR CHEST 2V PA LATERAL 09/27/2023 10:17 AM FINDINGS: Lungs: No focal consolidation Pleural spaces: Unremarkable. No pleural effusion. No pneumothorax. Heart/Mediastinum: Unremarkable. No cardiomegaly. Bones/joints: Unremarkable. IMPRESSION: No acute findings. No focal consolidation Dictated and Authenticated by: Yoel Grider MD. Orderin Mikey Jimenez MD
== END 2024-08-28 14:40 | disposition home or self-care (01) ==
PROVIDERS: Emergency Provider Emergency Medicine
DX: J18.9 Pneumonia, unspecified organism (principal); F17.290 Nicotine dependence, other tobacco product, uncomplicated
CPT/HCPCS: 99283; 71046; 99284

== ENCOUNTER 2024-09-25 12:07 | Emergency (ER) | payer MEDICAID, SELFPAY ==
[2024-09-25 12:12] VITALS: BP 121/73; PULSE 81; RESP 16; TEMP 36.9; O2SAT 98
[2024-09-25 12:14] VITALS: BP 121/73; PULSE 81; RESP 16; TEMP 36.9; O2SAT 98
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
[2024-09-25] MEDS: Amox. 875/Clav. 125, 2 TABS/BTL 1 TAB PO (13:01)
[2024-09-25] MEDS: Bupivacaine 0.5% Pres-Free 30 ML VIAL (13:03)
== END 2024-09-25 13:11 | disposition home or self-care (01) ==
PROVIDERS: Emergency Provider Student in an Organized Health Care Education/Training Program
DX: K04.7 Periapical abscess without sinus (principal); K02.9 Dental caries, unspecified; F17.290 Nicotine dependence, other tobacco product, uncomplicated
CPT/HCPCS: 10160; 64400; 99283; J0665

== ENCOUNTER 2024-11-11 09:59 | Emergency (ER) | payer MEDICAID, SELFPAY ==
[2024-11-11 10:13] VITALS: BP 122/79; PULSE 55; RESP 14
== END 2024-11-11 12:06 | disposition left against medical advice (07) ==
LOC: ER 10:38
DX: Z53.20 Procedure and treatment not carried out because of patient's decision for unspecified reasons (principal)

== ENCOUNTER 2025-03-15 15:17 | Emergency (ER) | payer MEDICAID, SELFPAY ==
[2025-03-15 15:44] VITALS: BP 115/74; PULSE 67; RESP 16; TEMP 36.7; O2SAT 94
[2025-03-15 15:48] VITALS: BP 115/74; PULSE 67; RESP 16; TEMP 36.7; O2SAT 94
[2025-03-15 17:18] VITALS: BP 126/62; PULSE 72; RESP 18; O2SAT 99
--- NOTE | 2025-03-15 22:57 | W.ED.GENAD ---
Discharge Plan Disposition Patient Disposition: Home Condition: Stable Discharge Details Clinical Impression: Dysphagia, Rash Primary Care Provider: None,None ED Provider: Cheyanne Badillo Home Meds and New Rx's Prescriptions: New prednisone 20 mg tablet 40 mg PO DAILY Qty: 10 0RF No Action buprenorphine-naloxone [Suboxone] 8-2 mg film 3 film sublingual QDAY Rx Instructions: place 1 strip/tab under (each) side of tongue Discharge Instructions Instructions: Dysphagia (DC) Additional Instructions: i have placed referral for pcp and ENT, please answer your phone to schedule this take prednisone as prescribed drink 8, 8oz water daily motrin/tylenol as needed for pain apply emollient/lubriderm to rash Referrals: Jewel Maciel MD [ [facility] STAFF PHYSICIAN, ENT Surgical] Discharge Data Discharge Date/Time-TO BE ENTERED AT DEPARTURE: 03/15/25 17:20 HPI General Date/Time Provider Initiated Documentation: 03/15/25 15:41. HPI Narrative: This 29-year-old male presents with painful swallowing for the past year. States is able to eat and drink but he feels like he has something in the back of his throat for the past year. He has states he has had the rash for 15 years of his left axillary region. He reports that while he was in senior care he tried topical Lotrimin and hydrocortisone without relief in symptoms. Denies any worsening symptoms today states he had a day off and was able to be evaluated. Denies any chest pain or shortness of breath. Related Data Home Medications ?Medication ?Instructions ?Recorded ?Confirmed buprenorphine 8 mg-naloxone 2 mg 3 film sublingual QDAY 09/27/23 03/15/25 sublingual film (Suboxone) prednisone 20 mg tablet 40 mg (2 x 20 mg) PO DAILY #10 tabs 03/15/25 Previous Rx's ?Medication ?Instructions ?Recorded prednisone 20 mg tablet 40 mg (2 x 20 mg) PO DAILY #10 tabs 03/15/25 Allergies Allergy/AdvReac Type Severity Reaction Status Date / Time No Known Allergies Allergy Verified 03/15/25 15:44 General Stated Complaint: GenMedical SIMA: 4 Exam Narrative Exam Narrative: Alert and oriented 29-year-old male in no acute distress, preauricular lymph node noted no submandibular lymphadenopathy no thyromegaly maintaining secretions oropharynx patent uvula midline no drooling No abdominal tenderness TMs clear bilaterally raised papular lesion to left axillary region Course Vital Signs Vital signs: Vital Signs Temperature 36.7 C 03/15/25 15:44 Pulse 67 03/15/25 15:44 Respiratory Rate 16 03/15/25 15:44 Blood Pressure 115/74 03/15/25 15:44 Pulse Oximetry 94 03/15/25 15:44 Temperature 36.7 C 03/15/25 15:48 Temperature Source Oral 03/15/25 15:48 Pulse 72 03/15/25 17:18 Respiratory Rate 18 03/15/25 17:18 Respiratory Effort Normal, Non-Labored 03/15/25 17:18 Respiratory Depth Normal 03/15/25 17:18 Respiratory Pattern Normal 03/15/25 17:18 Blood Pressure 126/62 03/15/25 17:18 Blood Pressure Position Sitting 03/15/25 15:48 Pulse Oximetry 99 03/15/25 17:18 Oxygen Delivery Method Room Air 03/15/25 15:48 Oxygen Flow Rate 0 03/15/25 15:48 Pain Level 0 03/15/25 17:18 Medical Decision Making 29-year-old male presenting in no acute distress with 1 year history of globus sensation in throat. I offered patient CT soft tissue neck, he states he does not have that amount of time to stay in the emergency department but would like to follow-up with a primary care physician or ENT. I have placed a referral for follow-up with PCP. Patient's exam is benign. He does have a rash under his left axillary region. I placed patient on prednisone for the next several days to see if it helps with the rash on the axillary region and his throat. He is placed on referral for outpatient follow-up. He declines any imaging today and I think he is quite stable for discharge home at this time return precautions reviewed and patient expressed understanding PFSH All Active Problems (Updated 03/15/25 @ 16:57 by TAYLOR Garcia) Rash (Acute) Dysphagia (Acute) Family History (Updated 05/14/23 @ 11:14 by Queta Enrique) Mother Alcohol use disorder Social History (Updated 05/14/23 @ 11:13 by Queta Enrique) Smoking/Tobacco Use Status: Current every day Tobacco Type: e-cigarettes Second Hand Exposure: No Smoking risk assessment performed?: Yes Alcohol Intake: current Alcohol Intake frequency: holidays/special occasions only Drug use: Daily Substance use type: marijuana Caregiver/Support person: No Foster care: Yes Housing: house Number of Children: 0 number of grandchildren: 0 Communication Needs: None Do you need help understanding health information?: Never Sexually active: Yes Do you think of yourself as: straight/heterosexual Current gender identity: male What is your relationship status?: never How often do you talk on the phone with friends or family?: never Do you belong to any clubs or organized social groups?: no Panel score (0-1 are the most socially isolated patients): 0 Duration: > 90 minutes/day Frequency: daily Seatbelt use: never Helmet use: No Drive intox or ride w/intox double bottom driver: No Do you feel safe at home: Yes Do you feel safe in your relationship?: Yes
== END 2025-03-15 17:20 | disposition home or self-care (01) ==
PROVIDERS: Emergency Provider Physician Assistant
DX: R21 Rash and other nonspecific skin eruption (principal); R13.10 Dysphagia, unspecified
CPT/HCPCS: 99283 ×2